=== PATIENT | male | born 1970 | race Caucasian/White ===

== ENCOUNTER → 2019-04-23 09:57 | Outpatient (CLI) | payer MEDICAID, SELFPAY ==
--- NOTE | 2019-04-23 13:08 | NEURO ---
NCS and/or EMG Patient Report Ordering Doctor: Arnulfo Pelaez DATE OF SERVICE: 04/23/19 Saran eWlch is a 49 year old male who presents with pain, weakness and numbness in the left hand. Electrodiagnostic findings: Left median motor nerve demonstrates normal distal latency, amplitude and conduction velocity. Normal left ulnar motor response. Normal median and ulnar F-wave. Prolonged left median sensory latency at the wrist. Prolonged left median palmar latency. On needle EMG, all muscles tested in the left upper limb showed no evidence of denervation with normal motor unit action potentials. No denervation noted in the left cervical paraspinals. Electrodiagnostic impression: This is an abnormal study in the left upper limb. 1. Elective diagnostic findings demonstrate left-sided median mononeuropathy. This is consistent with a mild left carpal tunnel syndrome. 2. No electrodiagnostic evidence is noted for cervical radiculopathy. If there are any further questions, please do not hesitate to contact me
== END ==
DX: G56.02 Carpal tunnel syndrome, left upper limb (principal)
CPT/HCPCS: 95886; 95910

== ENCOUNTER → 2019-05-22 13:14 | Outpatient (CLI) | payer MEDICAID, SELFPAY ==
[2019-05-22 13:02] VITALS: BMI 31.0
--- NOTE | 2019-05-22 13:14 | RAD_ITS ---
STUDY: X-RAY - LEFT WRIST REASON FOR EXAM: Woke up with severe wrist pain. TECHNIQUE: 3 view(s) of the wrist were obtained. COMPARISON: None. FINDINGS: Normal visualized distal radius and ulna. Normal radiocarpal articulation. Normal distal radioulnar articulation. Normal carpal bones. Normal carpal articulations. There is moderate joint space narrowing of the carpometacarpal articulation of the thumb. Normal second through fifth carpometacarpal articulations. Normal visualized metacarpal bones. The soft tissue structures are unremarkable. RAD/Wrist min 3 Views IMPRESSION: Arthrosis of the first carpometacarpal joint. Electronically Signed: Jason Ruiz MD at 13:40 EST Tel , Service support ,
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
== END ==
PROVIDERS: Referring Provider Orthopaedic Surgery; Visit Provider Orthopaedic Surgery
DX: M79.602 Pain in left arm (principal); M54.2 Cervicalgia; G56.02 Carpal tunnel syndrome, left upper limb
CPT/HCPCS: 72050; 73110

== ENCOUNTER → 2020-12-07 14:32 | Outpatient (CLI) | payer MEDICAID, SELFPAY ==
[2020-12-07 13:57] VITALS: BMI 31.0
[2020-12-07 15:48] LABS: Absolute Lymphocyte Count 2.32 X10^3/uL (0.83-4.51); Basophil# 0.14 X10^3/uL; Basophil% 1.2 % (0-1); Eosinophils% 0.9 % (0-5); Hematocrit 49.1 % (40-54); Hemoglobin 16.4 g/dL (13.0-16.5); Lymphocyte # 2.32 X10^3/ul (0.83-4.51); Lymphocyte % 20.5 % (19-41); Mean Corp Hgb Conc 33.4 g/dL (32-36); Mean Corpuscular Hgb 31.1 pg (27.0-32.0); Mean Platelet Vol. 9.9 fl (6.2-12.0); Monocyte# 0.77 X10^3/uL; Monocyte% 6.8 % (0-10); NRBC Flagged by Analyzer 0 % (0-5); Neutrophil # 7.96 X10^3/uL (2.7-7.7); Neutrophil % 70.3 % (47-70); Platelet Count 363 K/mm3 (150-450); RBC Distribution Width CV 13.1 % (11.6-14.6); Red Blood Count 5.28 M/mm3 (4.6-6.2); White Blood Count 11.3 K/mm3 (4.4-11.0)
[2020-12-07 16:39] LABS: ALB/GLOB Ratio 0.9 RATIO (0.9-2.4); AST(SGOT) 25 U/L (15-37); Alanine Aminotransfer ALT/SGPT 27 U/L (16-61); Alkaline Phosphatase 85 U/L (45-117); Anion Gap 6 (5-15); BUN 7 mg/dL (7-18); BUN/Creat Ratio 8.9 RATIO (10-20); Calcium,Total 9.3 mg/dL (8.5-10.1); Chloride 104 mmol/L (98-107); Creatinine, Serum 0.78 mg/dL (0.70-1.30); EST Glomerular Filtration Rate 110 mL/min (>60); Est Glom Filt Rate - Afr Amer 134 mL/min (>60); Globulin 4.3 g/dL (2.2-4.2); Glucose 87 mg/dL (74-106); Potassium 3.7 mmol/L (3.5-5.1); Protein, Total 8.3 g/dL (6.4-8.2); Sodium Level 136 mmol/L (136-145); Thyroid Stim Hormone (TSH) 1.78 uIU/mL (0.358-3.74)
[2020-12-09 12:15] LABS: Vitamin D,25 Hydroxy 12.3 ng/mL
== END ==
PROVIDERS: PCP Family Medicine; Referring Provider Family Medicine; Visit Provider Family Medicine
DX: G25.2 Other specified forms of tremor (principal)
CPT/HCPCS: 36415; 80053; 82306; 84443; 85025

== ENCOUNTER 2021-04-11 06:39 | Day surgery (SDC) | payer MEDICAID, SELFPAY ==
--- NOTE | 2021-04-11 | COLBX_PTH ---
PATIENT: TIMMY HARRISON LOC: EN U#:[id number] AGE/SX: 51/M ROOM: RE04/11/[address]: Dr. Glynn Young DO : 1970 BED: DIS: 04/11/2021 SPEC #: [id number] RECD: 04/11/21 12:10 STATUS: SAMEER JAVED #: [id number] CARLOS: 04/11/21 00:[address]: Glynn Young DEPT: SURGICAL PATHOLOGY RECD BY: Bradley Montanez ENTERED: 04/11/21 12:10 SP TYPE: COLON BX GIANFRANCO DR: Dr. Henry Blanton DO Tissues: A - Ileum, NOS B - COLON BIOPSY Procedures: Surgery Specimen Level IV HEADER OPERATION: Colonoscopy (MAC) PRE-OP DIAGNOSIS: Irritable bowel syndrome TISSUE SUBMITTED: A ? Terminal ileum biopsy, B ? Random colonic biopsy MICROSCOPIC DIAGNOSIS A. Terminal ileum, biopsy: No pathologic change. B. Colon, random biopsy: No pathologic change. AM:fany 04/12/2021 MICROSCOPIC DESCRIPTION Slides are reviewed. GROSS DESCRIPTION A - Received in fixative is one container labeled with the patient's name and designated terminal ileum biopsy. The specimen consists of multiple irregular fragments of light estrada soft tissue that in aggregate measure 1 x 0.4 x 0.1 cm. The specimen is totally submitted in one cassette. B - Received in fixative is one container labeled with the patient's name and designated random colonic biopsy. The specimen consists of multiple irregular fragments of light estrada soft tissue that in aggregate measure 2.5 x 1 x 0.1 cm. The specimen is totally submitted in one cassette. / SJ:fany 04/11/21 TC:5 CPT: 91763 x2
[2021-04-11 07:08] VITALS: BP 125/74; PULSE 88; RESP 18; TEMP 37; O2SAT 95; BMI 29.6
[2021-04-11] MEDS: Lactated Ringers 1,000 ML 100 ML IV (07:24)
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
[2021-04-11 08:20] VITALS: BP 125/74; BP 97/63; PULSE 75; RESP 16; TEMP 36.3; O2SAT 93
--- NOTE | 2021-04-11 08:24 | OP.COLON_ITS ---
Patient Name: Saran Welch Procedure Date: 04/11/2021 7:59 AM Date of : 1970 Age: 51 Procedure: Colonoscopy Indications: Crohn's disease of the colon Providers: Glynn Young DO Referring MD: Glynn Young DO Medicines: Monitored Anesthesia Care Patient Profile: This is a 51 year old male. Refer to note in patient chart for documentation of history and physical. Last Colonoscopy: 5 years ago. Complications: No immediate complications. Procedure: Pre-Anesthesia Assessment: - Prior to the procedure, a History and Physical was performed, and patient medications and allergies were reviewed. The patient is competent. The risks and benefits of the procedure and the sedation options and risks were discussed with the patient. All questions were answered and informed consent was obtained. Patient identification and proposed procedure were verified by the physician in the pre-procedure area. Mental Status Examination: alert and oriented. Airway Examination: normal oropharyngeal airway and neck mobility. Respiratory Examination: clear to auscultation. CV Examination: normal. Prophylactic Antibiotics: The patient does not require prophylactic antibiotics. Prior Anticoagulants: The patient has taken no previous anticoagulant or antiplatelet agents. ASA Grade Assessment: II - A patient with mild systemic disease. After reviewing the risks and benefits, the patient was deemed in satisfactory condition to undergo the procedure. The anesthesia plan was to use moderate sedation / analgesia (conscious sedation). Immediately prior to administration of medications, the patient was re-assessed for adequacy to receive sedatives. The heart rate, respiratory rate, oxygen saturations, blood pressure, adequacy of pulmonary ventilation, and response to care were monitored throughout the procedure. The physical status of the patient was re-assessed after the procedure. After I obtained informed consent, the scope was passed under direct vision. Throughout the procedure, the patient's blood pressure, pulse, and oxygen saturations were monitored continuously. The pediatric colonoscope was introduced through the anus and advanced to the terminal ileum. The colonoscopy was performed without difficulty. The patient tolerated the procedure well. The quality of the bowel preparation was good. Moderate Sedation: Moderate (conscious) sedation was administered by the endoscopy nurse and supervised by the endoscopist. The following parameters were monitored: oxygen saturation, heart rate, blood pressure, and response to care. Scope In: 8:06:36 AM Scope Withdrawal Time 0 hours 9 minutes 29 seconds Scope Out: 8:18:02 AM Total Procedure Duration Time 0 hours 11 minutes 26 seconds Findings: The perianal and digital rectal examinations were normal. Patchy mild inflammation characterized by erythema was found in the sigmoid colon. Biopsies were taken with a cold forceps for histology. Verification of patient identification for the specimen was done. Estimated blood loss was minimal. The terminal ileum appeared normal. Biopsies were taken with a cold forceps for histology. Estimated blood loss: none. Impression: - Patchy mild inflammation was found in the sigmoid colon secondary to colitis. Biopsied. - The examined portion of the ileum was normal. Biopsied. - Patchy mild inflammation was found in the proximal sigmoid colon secondary to colitis. Biopsied. - The examined portion of the ileum was normal. Biopsied. Recommendation: - Discharge patient to home. - Resume previous diet. - Continue present medications. - Await pathology results. - Repeat colonoscopy in 3 years for surveillance. - Return to GI office in 2 weeks. Procedure Code(s): --- Professional --- 76467, Colonoscopy, flexible; with biopsy, single or multiple CPT copyright 2017 [employer]. All rights reserved. The codes documented in this report are preliminary and upon assistant oceanographer review may be revised to meet current compliance requirements. Glynn Young DO 04/11/2021 8:24:00 AM This report has been signed electronically. Number of Addenda: 1 Note Initiated On: 04/11/2021 7:59 AM Addendum Number: 1 Addendum Date: 03/16/2022 4:04:38 PM MAC was used instead of moderate sedation for this patient. Glynn Young DO 03/16/2022 4:04:44 PM This report has been signed electronically.
[2021-04-11 08:25] VITALS: BP 105/67; BP 125/74; PULSE 75; RESP 16; O2SAT 95
--- NOTE | 2021-04-11 08:25 | OP.CCLET_ITS ---
03/16/2022 Henry Blanton Re : Colonoscopy procedure for Saran Welch Dear Dr. Blanton This procedure was performed on Sunday, April 11, 2021. My impressions and recommendations are as follows: Impressions : - Patchy mild inflammation was found in the sigmoid colon secondary to colitis. Biopsied. - The examined portion of the ileum was normal. Biopsied. - Patchy mild inflammation was found in the proximal sigmoid colon secondary to colitis. Biopsied. - The examined portion of the ileum was normal. Biopsied. Recommendations : - Discharge patient to home. - Resume previous diet. - Continue present medications. - Await pathology results. - Repeat colonoscopy in 3 years for surveillance. - Return to GI office in 2 weeks. My findings are described in the full procedure note, which is enclosed. If I can be of further assistance, please feel free to contact me at . Sincerely, Glynn Young, DO 04/11/2021 8:24:00 AM This report has been signed electronically.
[2021-04-11 08:30] VITALS: BP 109/65; BP 125/74; PULSE 72; RESP 16; O2SAT 95
[2021-04-11 08:35] VITALS: BP 119/79; BP 125/74; PULSE 81; RESP 16; TEMP 37.2; O2SAT 98
[2021-04-11 09:00] VITALS: BP 125/74
== END 2021-04-11 09:01 ==
LOC: EN 06:40 → AC 06:40
PROVIDERS: PCP Family Medicine; Referring Provider Internal Medicine Gastroenterology; Visit Provider Internal Medicine Gastroenterology
PROC: 0DJD8ZZ Inspection of Lower Intestinal Tract, Via Natural or Artificial Opening Endoscopic (ICD-10-PCS; CPT 45378; principal; 2021-04-11 07:55)
DX: K50.10 Crohn's disease of large intestine without complications (principal); K21.9 Gastro-esophageal reflux disease without esophagitis; R13.10 Dysphagia, unspecified; Z20.822 Contact with and (suspected) exposure to COVID-19; M54.2 Cervicalgia; G89.29 Other chronic pain; F17.210 Nicotine dependence, cigarettes, uncomplicated
CPT/HCPCS: 45380; 87426; 88305; C9803; J7120; J2405

== ENCOUNTER → 2021-06-06 08:59 | Outpatient (CLI) | payer MEDICAID, SELFPAY ==
[2021-06-09 00:07] LABS: Beef <0.10 kU/L (Class 0); Clam <0.10 kU/L (Class 0); Codfish <0.10 kU/L (Class 0); Corn <0.10 kU/L (Class 0); Egg, White <0.10 kU/L (Class 0); Egg, Whole <0.10 kU/L (Class 0); Milk (Cow) <0.10 kU/L (Class 0); Peanut <0.10 kU/L (Class 0); Pork <0.10 kU/L (Class 0); SCALLOP <0.10 kU/L (Class 0); SESAME SEED <0.10 kU/L (Class 0); Shrimp <0.10 kU/L (Class 0); Soybean <0.10 kU/L (Class 0); Walnut, (Food) <0.10 kU/L (Class 0); Wheat <0.10 kU/L (Class 0)
[2021-06-09 08:41] LABS: Chocolate <0.10 kU/L (Class 0)
== END ==
PROVIDERS: PCP Family Medicine; Referring Provider Internal Medicine Gastroenterology; Visit Provider Internal Medicine Gastroenterology
DX: K58.0 Irritable bowel syndrome with diarrhea (principal)
CPT/HCPCS: 36415; 86003; 86005

== ENCOUNTER → 2021-06-11 07:11 | Outpatient (CLI) | payer MEDICAID, SELFPAY ==
--- NOTE | 2021-06-11 07:11 | MRI_ITS ---
STUDY: MRI CERVICAL SPINE WITHOUT CONTRAST REASON FOR EXAM: Male, 51 years old. neck pain, spondylosis, ankylosing vertebral hyperostosis TECHNIQUE: Standardized fat and water weighted pulse sequences were obtained in the sagittal and axial planes. COMPARISON: 03/07/2021 FINDINGS: Normal foramen magnum and brainstem-cervical cord junction. Normal craniovertebral junction. Normal anterior atlantoaxial articulation. Normal odontoid process. Normal cervical lordosis. Normal vertebral bodies and posterior osseous elements. C2-3, C3-4, C4-5, C5-6: Endplate spondylosis. Central and paracentral disc bulge. Degenerative changes of the bilateral facet joints and uncovertebral joints. Mild narrowing of the central canal and the bilateral intervertebral neural foramina. C7-T1: Endplate spondylosis. Left paracentral disc herniation impinging on the left C8 nerve root. Degenerative changes of the bilateral facet joints and uncovertebral joints. Moderate narrowing of the central canal. Mild right and severe left intervertebral neural foraminal narrowing. Normal cervical cord. Normal visualized soft tissue structures. MRI/Spine Cervical (Routine) IMPRESSION: Multilevel degenerative changes, as described above. Left paracentral disc herniation at C7-T1 impinging on the left C8 nerve root. Electronically Signed: Jared Rodríguez MD at 7:46 EST Tel , Service support ,
== END ==
PROVIDERS: PCP Family Medicine; Referring Provider Orthopaedic Surgery; Visit Provider Orthopaedic Surgery
DX: M41.52 Other secondary scoliosis, cervical region (principal); M47.812 Spondylosis without myelopathy or radiculopathy, cervical region; M48.10 Ankylosing hyperostosis [Forestier], site unspecified
CPT/HCPCS: 72141

== ENCOUNTER → 2021-07-12 08:41 | Outpatient (CLI) | payer MEDICAID, SELFPAY ==
[2021-07-12 09:42] LABS: Absolute Lymphocyte Count 1.96 X10^3/uL (0.83-4.51); Absolute Neutrophil Count 10.8 X10^3/uL (2.0-7.7); Basophil# 0.07 X10^3/uL; Basophil% 0.5 % (0-1); Eosinophil# 0.11 X10^3/uL; Eosinophils% 0.8 % (0-5); Hematocrit 47.6 % (40-54); Lymphocyte # 1.96 X10^3/ul (0.83-4.51); Lymphocyte % 13.9 % (19-41); Mean Corp Hgb Conc 33.6 g/dL (32-36); Mean Corpuscular Hgb 31.8 pg (27.0-32.0); Mean Corpuscular Volume 94.6 fL (80-94); Mean Platelet Vol. 9.6 fl (6.2-12.0); Monocyte# 1.05 X10^3/uL; Monocyte% 7.5 % (0-10); NRBC Flagged by Analyzer 0 % (0-5); Neutrophil # 10.81 X10^3/uL (2.7-7.7); Neutrophil % 76.7 % (47-70); Platelet Count 301 K/mm3 (150-450); RBC Distribution Width CV 14.3 % (11.6-14.6); RBC Distribution Width SD 49.1 fl (35.1-43.9); Red Blood Count 5.03 M/mm3 (4.6-6.2); White Blood Count 14.1 K/mm3 (4.4-11.0)
[2021-07-12 09:52] LABS: Erythrocyte Sedimentation Rate 6 mm/hr (0-20)
[2021-07-12 10:37] LABS: ALB/GLOB Ratio 1.1 RATIO (0.9-2.4); AST(SGOT) 18 U/L (15-37); Alanine Aminotransfer ALT/SGPT 36 U/L (16-61); Alkaline Phosphatase 65 U/L (45-117); Anion Gap 5 (5-15); BUN 13 mg/dL (7-18); BUN/Creat Ratio 16.4 RATIO (10-20); CRP < 2.90 mg/L (0.0-3.0); Calcium,Total 9.1 mg/dL (8.5-10.1); Chloride 106 mmol/L (98-107); Creatinine, Serum 0.79 mg/dL (0.70-1.30); EST Glomerular Filtration Rate 109 mL/min (>60); Est Glom Filt Rate - Afr Amer 131 mL/min (>60); Globulin 3.8 g/dL (2.2-4.2); Glucose 93 mg/dL (74-106); Potassium 3.7 mmol/L (3.5-5.1); Protein, Total 7.8 g/dL (6.4-8.2); Sodium Level 137 mmol/L (136-145)
== END ==
PROVIDERS: PCP Family Medicine; Referring Provider Nurse Practitioner Adult Health; Visit Provider Nurse Practitioner Adult Health
DX: K58.0 Irritable bowel syndrome with diarrhea (principal)
CPT/HCPCS: 36415; 80053; 85025; 85652; 86140

== ENCOUNTER 2021-07-22 10:16 | Outpatient (CLI) | payer MEDICAID, SELFPAY ==
[2021-07-22 12:42] LABS: Absolute Lymphocyte Count 3.38 X10^3/uL (0.83-4.51); Absolute Neutrophil Count 6.5 X10^3/uL (2.0-7.7); Basophil% 0.9 % (0-1); Eosinophil# 0.26 X10^3/uL; Eosinophils% 2.3 % (0-5); Hematocrit 47.3 % (40-54); Hemoglobin 15.9 g/dL (13.0-16.5); Lymphocyte # 3.38 X10^3/ul (0.83-4.51); Lymphocyte % 30.4 % (19-41); Mean Corp Hgb Conc 33.6 g/dL (32-36); Mean Corpuscular Hgb 31.8 pg (27.0-32.0); Mean Corpuscular Volume 94.6 fL (80-94); Mean Platelet Vol. 9.9 fl (6.2-12.0); Monocyte# 0.79 X10^3/uL; Monocyte% 7.1 % (0-10); NRBC Flagged by Analyzer 0 % (0-5); Neutrophil % 58.4 % (47-70); Platelet Count 298 K/mm3 (150-450); RBC Distribution Width CV 14.3 % (11.6-14.6); RBC Distribution Width SD 49.7 fl (35.1-43.9); White Blood Count 11.1 K/mm3 (4.4-11.0)
== END 2021-07-22 23:59 | disposition short-term general hospital (02) ==
LOC: BIMLAB 10:17
PROVIDERS: PCP Family Medicine; Referring Provider Family Medicine; Visit Provider Family Medicine
DX: D72.9 Disorder of white blood cells, unspecified (principal)
CPT/HCPCS: 36415; 85025

== ENCOUNTER 2021-09-15 08:08 | Outpatient (CLI) | payer MEDICAID, SELFPAY | END 2021-09-15 23:59 | disposition home or self-care (01) | LOC: BIMLAB 08:09 | PROVIDERS: PCP Family Medicine; Referring Provider Family Medicine; Visit Provider Family Medicine | DX: M23.52 Chronic instability of knee, left knee (principal); R61 Generalized hyperhidrosis | CPT/HCPCS: 36415; 84403 ==

== ENCOUNTER 2021-10-12 16:06 | Outpatient (CLI) | payer MEDICAID, SELFPAY ==
--- NOTE | 2021-10-12 16:06 | MRI_ITS ---
STUDY: MRI LEFT SHOULDER REASON FOR EXAM: Male, 51 years old. left shoulder pain, painful w/ movement left shoulder pain, painful w/ movement TECHNIQUE: Standardized fat and water weighted pulse sequences were obtained in all 3 orthogonal planes. COMPARISON: None. FINDINGS: Normal supraspinatus tendon. Normal infraspinatus tendon. Normal subscapularis tendon. Normal teres minor tendon. Normal supraspinatus muscle. Normal infraspinatus muscle. Normal subscapularis muscle. Normal teres minor muscle. Normal glenohumeral articulation. Normal humeral head and visualized proximal humerus. Normal biceps labral complex. Normal intracapsular long biceps tendon. Normal labrum. Normal capsulo- ligamentous complex. Normal rotator interval. There is mild osteoarthritis of the acromioclavicular articulation. Normal visualized coracohumeral and coracoacromial ligaments. Normal quadrilateral space. Normal axillary space. Normal deltoid muscle. Normal trapezius muscle. MRI/Upper Ext Joint Only(Routine) IMPRESSION: There is mild osteoarthritis of the acromioclavicular articulation. Electronically Signed: Mak Mccollum MD at 18:41 EDT Reading Location ID and State: [facility] / [place] , Service support ,
--- NOTE | 2021-10-12 16:06 | MRI_ITS ---
STUDY: MRI RIGHT SHOULDER REASON FOR EXAM: Male, 51 years old. right shoulder painful with movement right shoulder painful with movement TECHNIQUE: Standardized fat and water weighted pulse sequences were obtained in all 3 orthogonal planes. RIGHT COMPARISON: None. FINDINGS: Normal supraspinatus tendon. Normal infraspinatus tendon. Normal subscapularis tendon. Normal teres minor tendon. Normal supraspinatus muscle. Normal infraspinatus muscle. Normal subscapularis muscle. Normal teres minor muscle. Normal glenohumeral articulation. Normal humeral head and visualized proximal humerus. Normal biceps labral complex. Normal intracapsular long biceps tendon. Normal labrum. Normal capsulo- ligamentous complex. Normal rotator interval. There is mild osteoarthritis of the acromioclavicular articulation. There is minimal fluid distention of the subacromial bursa, consistent with mild subacromial-subdeltoid bursitis. Normal visualized coracohumeral and coracoacromial ligaments. Normal quadrilateral space. Normal axillary space. Normal deltoid muscle. Normal trapezius muscle. MRI/Upper Ext Joint Only(Routine) IMPRESSION: There is mild osteoarthritis of the acromioclavicular articulation. There is minimal fluid distention of the subacromial bursa, consistent with mild subacromial-subdeltoid bursitis. Electronically Signed: Mak Mccollum MD at 19:32 EDT ,
== END 2021-10-12 23:59 | disposition home or self-care (01) ==
LOC: MRI 16:06
PROVIDERS: PCP Family Medicine; Visit Provider Orthopaedic Surgery
DX: M40.00 Postural kyphosis, site unspecified (principal); M75.21 Bicipital tendinitis, right shoulder; M75.22 Bicipital tendinitis, left shoulder; M75.41 Impingement syndrome of right shoulder; M75.42 Impingement syndrome of left shoulder; M25.511 Pain in right shoulder; M25.512 Pain in left shoulder
CPT/HCPCS: 73221

== ENCOUNTER 2021-10-20 07:00 | Outpatient (CLI) | payer MEDICAID, SELFPAY ==
--- NOTE | 2021-10-20 07:00 | MRI_ITS ---
STUDY: MRI RIGHT KNEE REASON FOR EXAM: Chronic lateral and posterior right knee pain. TECHNIQUE: Standardized fat and water weighted pulse sequences were obtained in all 3 orthogonal planes. COMPARISON: Radiographs 09/21/2021. FINDINGS: There is a small horizontal tear of the inferior articular surface of the posterior horn of the medial meniscus near the free margin (proton-density sagittal images 34, 35). There is arthrosis of the medial femorotibial compartment with partial-thickness chondral loss of the medial femoral condyle (T2 sagittal image 19). Normal medial femoral condyle and tibial plateau. Normal medial collateral ligamentous complex (MCL). Normal distal semimembranosus, gracilis and semitendinosus tendons. There is a tear of the superior articular surface of the body of the lateral meniscus (proton-density coronal images 15, 16). Normal hyaline cartilage of the lateral femorotibial compartment. Normal lateral femoral condyle and tibial plateau. Normal proximal tibiofibular articulation. Normal lateral collateral (fibular) ligament. Normal popliteus tendon. Normal biceps femoris tendon. Normal anterior cruciate ligament (ACL). Normal posterior cruciate ligament (PCL). Normal congruent patellofemoral articulation. Normal hyaline cartilage of the patellofemoral compartment. Normal medial and lateral patellar retinaculum. Normal visualized quadriceps tendon. Normal patellar tendon. Normal Hoffa''s fat pad. There is a very small joint effusion. The soft tissues are unremarkable. The otherwise visualized osseous structures are unremarkable. MRI/Lower Ext Joint Only (Routine) IMPRESSION: Lateral meniscal tear. Small medial meniscal tear. Arthrosis of the medial femorotibial compartment. Very small joint effusion. Electronically Signed: Jason Ruiz MD at 10:27 EDT ,
--- NOTE | 2021-10-20 07:00 | MRI_ITS ---
STUDY: MRI LEFT KNEE REASON FOR EXAM: Chronic left knee pain, instability, arthroscopic surgery in 1988. TECHNIQUE: Standardized fat and water weighted pulse sequences were obtained in all 3 orthogonal planes. COMPARISON: Radiographs 09/21/2021. FINDINGS: There is a partial medial meniscectomy. There is intrasubstance myxoid degeneration of the body of the medial meniscus without discrete recurrent medial meniscal tear. There is arthrosis of the medial femorotibial compartment with partial-thickness chondral loss of the medial femoral condyle (T2 sagittal image 8). Normal medial femoral condyle and tibial plateau. Normal medial collateral ligamentous complex (MCL). Normal distal semimembranosus, gracilis and semitendinosus tendons. Normal lateral meniscus. Normal hyaline cartilage of the lateral femorotibial compartment. Normal lateral femoral condyle and tibial plateau. Normal proximal tibiofibular articulation. Normal lateral collateral (fibular) ligament. Normal popliteus tendon. Normal biceps femoris tendon. Normal anterior cruciate ligament (ACL). Normal posterior cruciate ligament (PCL). Normal congruent patellofemoral articulation. Normal hyaline cartilage of the patellofemoral compartment. Normal medial and lateral patellar retinaculum. Normal visualized quadriceps tendon. Normal patellar tendon. Normal Hoffa''s fat pad. There is a minimal volume of fluid in the knee joint. There is a very small popliteal cyst (T2 sagittal images 6, 7). There is a small ganglion cyst adjacent to the distal posterior cruciate ligament (T2 sagittal image 11, 12) measuring 0.9 cm in length. The otherwise visualized osseous structures are unremarkable. MRI/Lower Ext Joint Only (Routine) IMPRESSION: Partial medial meniscectomy without demonstrated recurrent meniscal tear. Arthrosis of the medial femorotibial compartment. Very small popliteal cyst. Small posterior ganglion cyst. Electronically Signed: Jason Ruiz MD at 10:26 EDT ,
== END 2021-10-20 23:59 | disposition home or self-care (01) ==
LOC: MRI 07:00
PROVIDERS: PCP Family Medicine; Visit Provider Orthopaedic Surgery
DX: M25.562 Pain in left knee (principal); M17.12 Unilateral primary osteoarthritis, left knee
CPT/HCPCS: 73721

== ENCOUNTER 2021-10-26 13:06 | Outpatient (CLI) | payer MEDICAID, SELFPAY ==
--- NOTE | 2021-10-26 13:10 | MRI_ITS ---
STUDY: MRI LUMBAR SPINE WITHOUT CONTRAST REASON FOR EXAM: Male, 51 years old. Back pain TECHNIQUE: Standardized fat and water weighted pulse sequences were obtained in the sagittal and axial planes. COMPARISON: None FINDINGS: lumbar spine is intact and aligned. Marrow, paraspinous soft tissues and SI joints are unremarkable. There are multilevel degenerative changes in the endplates and discs. Conus terminates at T12-L1. Thecal sac is mildly stenotic at L2-L3 and L3-L4 with partial effacement of CSF without nerve root crowding. Lateral recesses are patent. Foramina are moderately stenotic bilaterally at L3-L4, moderate to severe at L4-L5, moderate at L5-S1. MRI/Spine Lumbar (Routine) IMPRESSION: 1. Bilateral lower lumbar multilevel foraminal stenosis. 2. No moderate/high-grade thecal sac compression. Electronically Signed: Derick Bernal MD at 9:19 EDT ,
== END 2021-10-26 23:59 | disposition home or self-care (01) ==
LOC: MRI 13:09
PROVIDERS: PCP Family Medicine; Visit Provider Orthopaedic Surgery
DX: M54.16 Radiculopathy, lumbar region (principal)
CPT/HCPCS: 72148

== ENCOUNTER 2021-11-01 11:53 | Outpatient (CLI) | payer MEDICAID, SELFPAY ==
[2021-11-01 15:36] LABS: T4 Free Direct 0.98 ng/dL (0.76-1.46); Thyroid Stim Hormone (TSH) 1.29 uIU/mL (0.358-3.74)
[2021-11-01 16:01] LABS: HIV - WCH Non-Reactive (Nonreactive)
== END 2021-11-01 23:59 | disposition home or self-care (01) ==
LOC: BIMLAB 11:54
PROVIDERS: PCP Family Medicine; Referring Provider Family Medicine; Visit Provider Family Medicine
DX: R61 Generalized hyperhidrosis (principal)
CPT/HCPCS: 36415; 84439; 84443; 86703

== ENCOUNTER → 2021-11-09 | Outpatient (CLI) | payer MEDICAID, SELFPAY ==
--- NOTE | 2021-11-09 13:44 | ART_ITS ---
Reason For Study: Decreased Pulses Procedure A bilateral lower extremity continuous wave Doppler with analog waveform analysis and ankle brachial indexes. Left Segmental Pressures Left brachial= 116mmHg. Left posterior tibial artery = 142mmHg. Left dorsalis pedis artery = 139mmHg. Right Segmental Pressures Right brachial= 115mmHg. Right posterior tibial artery = 147mmHg. Right dorsalis pedis artery = 136mmHg. Indices The right ankle brachial index by the posterior tibial artery is 1.27. The right ankle brachial index by the dorsalis pedis is 1.17. The left ankle brachial index by the posterior tibial artery is 1.22. The left ankle brachial index by the dorsalis pedis is 1.20. VL/Ankle Brachial Index Interpretation Summary Normal right posterior tibial and dorsalis pedis ankle-brachial indices of 1.27 and 1.17 respectively with triphasic Doppler waveforms. Normal left lower extremity PT and DP ankle-brachial indices of 1.22 and 1.2 re spectively with triphasic Doppler waveforms Ordering Physician: Cody Mills Referring Physician: Cody Mills Performed By: Sulema Mayberry RDCS/RVT
== END | disposition home or self-care (01) ==
LOC: CVS 13:43
PROVIDERS: PCP Family Medicine; Referring Provider Orthopaedic Surgery; Visit Provider Orthopaedic Surgery
DX: I73.9 Peripheral vascular disease, unspecified (principal)
CPT/HCPCS: 93922

== ENCOUNTER 2021-11-29 05:54 | Day surgery (SDC) | payer MEDICAID, SELFPAY ==
--- NOTE | 2021-11-28 07:02 | EKG12_ITS ---
Test Reason : PRE OP Blood Pressure : / mmHG Vent. Rate : 065 BPM Atrial Rate : 065 BPM P-R Int : 130 ms QRS Dur : 076 ms QT Int : 384 ms P-R-T Axes : 056 035 045 degrees QTc Int : 399 ms Normal sinus rhythm Normal ECG Confirmed by CUCO JAIMES, FARRAH ([id number]), social media editor CHELA DOTY ([id number]) on 11/28/2021 1:32:16 PM Referred By: Cody Mills Confirmed By:FARRAH NORWOOD MD
[2021-11-28 08:14] LABS: Hematocrit 46.9 % (40-54); Hemoglobin 15.4 g/dL (13.0-16.5); Mean Corp Hgb Conc 32.8 g/dL (32-36); Mean Corpuscular Hgb 30.7 pg (27.0-32.0); Mean Corpuscular Volume 93.4 fL (80-94); Mean Platelet Vol. 9.6 fl (6.2-12.0); Platelet Count 314 K/mm3 (150-450); RBC Distribution Width CV 12.8 % (11.6-14.6); RBC Distribution Width SD 44.2 fl (35.1-43.9); Red Blood Count 5.02 M/mm3 (4.6-6.2); White Blood Count 8.1 K/mm3 (4.4-11.0)
[2021-11-29] MEDS: Lactated Ringers 1,000 ML 15 ML IV ×2 (06:15→09:46)
[2021-11-29 06:34] VITALS: BP 93/51; PULSE 70; RESP 16; TEMP 37.2; O2SAT 95; BMI 26.9
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
[2021-11-29] MEDS: Cefazolin 2 GM in 0.9% Normal Saline 100 ML IV (07:36)
[2021-11-29] MEDS: Lidocaine 1% /Epi 1:100 (20ml) 20 ML Vial (08:17)
[2021-11-29] MEDS: MethylPREDNISolone Acetate 40 MG/ML Vial IM (08:27)
[2021-11-29] MEDS: Epinephrine (1 mg/ml) 1 MG/ML VIAL (08:27)
[2021-11-29] MEDS: Bupivacaine Mpf 0.5% 30 ML VIAL (08:28)
--- NOTE | 2021-11-29 08:28 | OP.PCM_ITS ---
Report of Operation Date of Procedure: 11/29/21 Description of Surgical Findings:: Preoperative diagnosis: Right shoulder AC joint arthritis, impingement, biceps tendonopathy Postoperative diagnosis: Right shoulder impingement , biceps tendinopathy Procedure: Arthroscopic right shoulder subacromial decompression/ acromioplasty and biceps tenotomy Anesthesia: General with interscalane block; EBL: 10 cc Complications: none Indication for procedure: 51-year-old male patient with chronic right anterior s houlder pain who has failed conservative treatment who has had MRI evidence of AC joint arthritis with subdeltoid bursitis and clinically chronic biceps tendinitis patient did wish to proceed with an arthroscopic subacromial decompression biceps tenotomy and surgery as indicated. risks benefits and alternatives of the procedure were reviewed including risk of bleeding infection nerve artery tissue damage need for further surgery continued pain postoperative stiffness and need for postoperative physical therapy and continued pain. Procedure : Patient was met in the preoperative holding area the operative extremity was identified by both the patient and the physician and was marked. Patient was met by anesthesia and brought back to the operating room on a wheeled cart. he was transferred to the operating table in the supine position. Anesthesia was started. Patient was then positioned in the beachchair configuration. Bony prominences were well-padded. The patient was prepped and draped in the usual sterile fashion. A timeout was called to ensure the proper patient procedure and extremity were being contemplated. Anatomic landmarks were palpated and marked with a marking pen. A 0.25% Marcaine with epinephrine was injected into the planned portal sites. An 11 blade scalpel was used to make a stab incision in the posterior lateral portal. Arthroscope was inserted into the glenohumeral space with ease. Inflow and outflow tubes were attached and arthroscopic visualization began. An anterior portal was established with an 18-gauge spinal needle. He was noted to have a thickened medial glenohumeral ligament there was some adhesion of the biceps labral complex to the undersurface of the rotator cuff there was some synovitis of the biceps tendon I did perform a evaluation of the rotator cuff there is no issues with the subscapularis or the remainder of the supraspinatus infraspinatus there is no loose bodies in the axillary pouch biceps tenotomy was performed with ArthroCare wand the arthroscope was then repositioned into the subacromial space there was noted to be anterior acromial spurring and a hypertrophied acromioclavicular joint impinging on the rotator cuff with the use of a bur the undersurface of the acromion and the distal clavicle were removed the remainder of the bursal surface of the rotator cuff was evaluated and was free of pathology bursa was excised to allow for this visualization the wound was thoroughly irrigated through the scope followed by a subacromial injection with 40 mg Depo-Medrol 4 mg of morphine and 8 cc of 0.5% Marcaine plain. Suture portals were closed with 3-0 nylon arthroscopic stitches followed by Xeroform 4 x 4 ABD and a Ioban dressing. A regular sling was placed. Anesthesia was reversed and patient tolerated the procedure well was and was transferred to the PACU all counts were correct patient will follow-up in the office in 2 weeks patient may begin active range of motion immediately
--- NOTE | 2021-11-29 08:32 | EX.PCM.DISCH ---
Discharge Instructions Activity Additional Activity Instructions:: Leave the dressing on and intact for 48 hours. Then may remove and shower with warm water and antibacterial soap. But do not submerge in tub for 3 weeks. ice shoulder 15 min on and 15 mins off next 72 hrs. May remove sling for elbow range of motion and pendulum exercises may preform active range of motion of shoulder when pain allows. discontinue sling over the course to the week as pain allow. DC completely by 1 week. Do not lift push or pull greater then 5 lbs with operative extremity. Encourage finger and wrist range of motion. If any concerns call Dr. Mills's office. Dressing / Incision Call your doctor if you observe: Shortness of breath and Chest pain Follow Up Care Please Follow Up With: Cody Mills DO When: 2 weeks Test Results: Test results from this visit will be discussed in further detail at your follow-up appointment, if applicable. Discharge Plan Admission Attending Provider: Cody Mills Primary Care Provider: Henry Blanton Consulting Providers: Edgar Perkins Discharge Orders/Prescriptions Prescriptions: New oxycodone 5 mg tablet 5 - 10 mg PO Q4H PRN (Reason: pain) 5 Days Qty: 30 RF: 0 No Action lorazepam [Ativan] 1 mg tablet 1 mg PO QHS PRN (Reason: sleep) Qty: 30 RF: 0 Other Ambulatory Orders: 12 Lead EKG (Routine) Location: None Selected Ordered By: Dr. Edgar Perkins Referrals / Follow Up: Henry Blanton DO [Primary Care Provider] - Disposition Disposition (needs filled in before D/C Order can be placed): Home, Self Care
[2021-11-29 08:47] VITALS: BP 119/73; BP 93/51; PULSE 118; RESP 16; TEMP 36.6; O2SAT 89
[2021-11-29 09:00] VITALS: BP 129/87; BP 93/51; PULSE 115; RESP 16; O2SAT 97
[2021-11-29 09:15] VITALS: BP 120/81; BP 93/51; PULSE 107; RESP 16; TEMP 36.4; O2SAT 92
[2021-11-29 09:32] VITALS: BP 93/51
== END 2021-11-29 09:49 | disposition home or self-care (01) ==
LOC: SDC 05:55 → AC 08:01
PROVIDERS: Anesthesiology; PCP Family Medicine; Referring Provider Orthopaedic Surgery; Visit Provider Orthopaedic Surgery
PROC: (CPT 29827; principal; 2021-11-29 07:10)
DX: M19.011 Primary osteoarthritis, right shoulder (principal); M40.204 Unspecified kyphosis, thoracic region; M75.21 Bicipital tendinitis, right shoulder; M75.41 Impingement syndrome of right shoulder; M75.42 Impingement syndrome of left shoulder; G89.29 Other chronic pain; M19.90 Unspecified osteoarthritis, unspecified site; K21.9 Gastro-esophageal reflux disease without esophagitis; Z79.899 Other long term (current) drug therapy; F17.210 Nicotine dependence, cigarettes, uncomplicated
CPT/HCPCS: 29826; 64415; 36415; 85027; 87426; 93005; C9803; J7120; J2405

== ENCOUNTER 2022-02-14 08:25 | Day surgery (SDC) | payer MEDICAID, SELFPAY ==
[2022-02-14 08:55] VITALS: BP 112/69; PULSE 88; RESP 16; TEMP 36.4; O2SAT 100; BMI 25.8
[2022-02-14] MEDS: Lactated Ringers 1,000 ML 15 ML IV (08:55)
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
[2022-02-14] MEDS: Cefazolin 2 GM in 0.9% Normal Saline 100 ML IV (10:38)
[2022-02-14] MEDS: Epinephrine (1 mg/ml) 1 MG/ML VIAL (10:49)
[2022-02-14] MEDS: Lidocaine 1% /Epi 1:100 (20ml) 20 ML Vial (10:49)
[2022-02-14] MEDS: MethylPREDNISolone Acetate 40 MG/ML Vial IM (11:01)
[2022-02-14] MEDS: Bupivacaine 0.25% 30 ML Vial (11:01)
--- NOTE | 2022-02-14 11:12 | OP.PCM_ITS ---
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 Postoperative diagnosis: Grade 4 cartilage wear medial femoral condyle, degenerative tearing posterior horn and body medial and lateral meniscus, loose body Procedure: Right knee arthroscopic partial medial partial lateral meniscectomy removal of loose body and chondroplasty Anesthesia: General Estimated blood loss: 5 mL Tourniquet time: 19 minutes 300 mmHg Complications: none Indication for procedure: 51-year-old male patient who has had ongoing right knee pain who has failed conservative treatment did have MRI evidence of medial and lateral meniscus tear as well as DJD the patient did wish to proceed with an elective arthroscopic surgery to attempt to alleviate the symptoms. Risk benefits and alternatives of the procedure were reviewed including risk of bleeding infection nerve artery tissue damage need for further surgery continued pain and expected postoperative course. Procedure: The patient was met in the preoperative holding area. The operative extremity was identified by both patient and physician and family and marked. Patient was brought back to the operating room on a wheeled cart and transferred to the operating table in the supine position. Anesthesia was started. A well- padded tourniquet was placed on the operative extremity. A lower extremity leg wills was secured to the operative extremity. The contralateral extremity was well-padded and the end of the bed was flexed to 90 degrees. The patient was prepped and draped in the usual sterile fashion. A timeout was called to ensure the proper patient, procedure, and extremity were being contemplated. 0.5% Marcaine with epinephrine was injected into the planned incisional areas under the skin only. An Esmarch was used to exsanguinate the extremity and the tourniquet was inflated. An 11 blade scalpel was used to make a stab incision in the anterior lateral portal. The arthroscope was inserted into the intercondylar notch and inflow and outflow tubes were attached. Arthroscopic visualization began. The medial compartment was entered. an 18-gauge spinal needle was used to establish the placement for anterior medial portal. An 11 blade scalpel was used to make a stab incision. Blunt probe was inserted follow ed by a meniscal probe. Medially there is a loose body found and removed from the medial compartment, The medial compartment demonstrated grade 4 cartilage wear on the posterior aspect of the medial femoral condyle there was some loose cartilage flaps that were debrided with a shaver performing a gentle chondroplasty the lesion was felt to be too large to perform microfracture surgery. There is no to be degenerative horizontal tearing of the body and horn of the medial meniscus the ACL was found to be intact. The lateral compartment was entered there is no be degenerative tearing of the body and horn of the lateral meniscus with use of arthroscopic shaver partial medial lateral meniscectomy was performed The arthroscope was switched to the medial portal to complete the procedure. The medial and lateral gutters were inspected and were free of loose bodies. The patellofemoral joint was inspected grade 4 cartilage fissuring in the trochlea with grade 2-3 changes of the patella. Th ere was good patellar tracking. The knee was thoroughly irrigated and drained. An intra-articular injection with 5 cc 0.5% Marcaine plain and 40 mg of Depo- Medrol was injected intra-articularly. The arthroscope was removed the portals were closed with 3-0 nylon arthroscopic stitches. Followed by Xeroform 4 x 4's ABDs web roll and an Dav wrap. The tourniquet was let down and the drapes were removed. All counts were correct. The patient was brought back to the PACU in stable condition.
--- NOTE | 2022-02-14 11:16 | DCINST_ITS ---
Discharge Instructions Dressing / Incision Call your doctor if you observe: Shortness of breath and Chest pain Additional Dressing/Incision Instructions:: Ice and elevate next 72 hours .keep dressing on clean and dry for 48 hours then may remove begin showering daily but do not submerge in tub or pool. After shower may apply Band-Aids . Encourage knee range of motion weightbearing as tolerated, use crutches until confident in knee then may discontinue. No strenuous activity. When not ambulating keep iced and elevated next 72 hours. Do not mix pain medication with recreational drugs or alcohol only take as prescribed can be addictive and abusive, call with any questions or concerns. Follow Up Care Please Follow Up With: Cody Mills DO When: 2 weeks Test Results: Test results from this visit will be discussed in further detail at your follow- up appointment, if applicable. Discharge Plan Admission Primary Reason for Your Visit: Right knee arthroscopy Attending Provider: Cody Mills Primary Care Provider: Henry Blanton Discharge Orders/Prescriptions Prescriptions: New oxycodone 5 mg tablet 5 - 10 mg PO Q4H PRN (Reason: pain) 7 Days Qty: 40 0RF No Action baclofen 10 mg tablet 10 mg PO TID Qty: 30 3RF Referrals / Follow Up: Henry Blanton DO [Primary Care Provider] - Disposition Discharge Orders: Discharge Patient (Routine); Ordered 02/14/22 Ordered By: Dr. oCdy Mills
[2022-02-14 11:18] VITALS: BP 104/75; BP 112/69; PULSE 86; RESP 16; TEMP 36.6; O2SAT 100
[2022-02-14 11:30] VITALS: BP 112/69; PULSE 81; RESP 18; O2SAT 100
[2022-02-14 11:35] VITALS: BP 110/76; BP 112/69; PULSE 80; RESP 18; TEMP 36.2; O2SAT 100
[2022-02-14 11:53] VITALS: BP 112/69; BP 112/70; PULSE 80; RESP 16; O2SAT 98
== END 2022-02-14 12:44 | disposition home or self-care (01) ==
LOC: SDC 08:26 → AC 08:27
PROVIDERS: PCP Family Medicine; Referring Provider Orthopaedic Surgery; Visit Provider Orthopaedic Surgery
PROC: (CPT 29870; principal; 2022-02-14 10:30)
DX: S83.241A Other tear of medial meniscus, current injury, right knee, initial encounter (principal); S83.281A Other tear of lateral meniscus, current injury, right knee, initial encounter; M17.11 Unilateral primary osteoarthritis, right knee; X58.XXXA Exposure to other specified factors, initial encounter; F17.210 Nicotine dependence, cigarettes, uncomplicated
CPT/HCPCS: 29880; 01400; J7120; J2405

== ENCOUNTER → 2022-04-12 | Outpatient (CLI) | payer MEDICAID, SELFPAY ==
[2022-04-12 10:37] LABS: Lyme Ab Screen Interpretation REF LAB
[2022-04-12 11:35] LABS: Erythrocyte Sedimentation Rate 16 mm/hr (0-20)
[2022-04-12 11:50] LABS: PTHIN 35.9 pg/mL (18.4-80.1)
[2022-04-12 11:53] LABS: CPK Total, Creatine Kinase 42 U/L (39-308); CRP 4.09 mg/L (0.0-3.0); LDH 165 U/L (87-241)
[2022-04-13 15:08] LABS: Anti-Centromere B Ab <0.2 AI (0.0-0.9); Anti-Chromatin <0.2 AI (0.0-0.9); Anti-Jo <0.2 AI (0.0-0.9); Anti-Scleroderma-70 AB <0.2 AI (0.0-0.9); RNP Ab 0.3 AI (0.0-0.9); SJOGREN'S Anti-SS-A test < 0.2 AI (0.0-0.9); SJOGREN'S Anti-SS-B test < 0.2 AI (0.0-0.9); Smith Ab <0.2 AI (0.0-0.9)
[2022-04-13 16:09] LABS: Endomysial Antibody IgA Negative (Negative)
[2022-04-13 16:29] LABS: Anti-dsDNA Ab <1 IU/mL (0-9)
[2022-04-13 16:30] LABS: Immunoglobulin A 430 mg/dL (90-386); t-Transglutaminase IgA 3 U/mL (0-3)
[2022-04-19 16:09] LABS: Albumin 4.2 g/dL (2.9-4.4); Alpha-1-Globulins 0.3 g/dL (0.0-0.4); Cytoplasmic Ab (C-ANCA) <1:20 titer (Neg:<1:20); Gamma Globulin 1.2 g/dL (0.4-1.8); Immunoglobulin A 443 mg/dL (90-386); Immunoglobulin G 1145 mg/dL (603-1613); Immunoglobulin M 69 mg/dL (20-172)
[2022-04-20 12:32] LABS: Immunoglobulin E 133 IU/mL (6-495); Lyme Scn Total Ab w/Rflx Negative (Negative); Perinuclear Ab (P-ANCA) <1:20 titer (Neg:<1:20)
== END | disposition home or self-care (01) ==
LOC: LAB 10:35
PROVIDERS: PCP Family Medicine; Visit Provider Internal Medicine Gastroenterology
DX: R63.4 Abnormal weight loss (principal)
CPT/HCPCS: 36415; 82550; 82784; 82785; 83036; 83516; 83615; 83970; 84165; 85652; 86140; 86225; 86235; 86255; 86256; 86334; 86618

== ENCOUNTER → 2022-05-17 | Outpatient (CLI) | payer MEDICARE, MEDICAID, SELFPAY ==
[2022-05-17 08:29] LABS: Absolute Lymphocyte Count 2.17 X10^3/uL (0.83-4.51); Absolute Neutrophil Count 4.1 X10^3/uL (2.0-7.7); Basophil# 0.11 X10^3/uL; Basophil% 1.6 % (0-1); Eosinophil# 0.12 X10^3/uL; Eosinophils% 1.7 % (0-5); Hematocrit 47.4 % (40-54); Lymphocyte # 2.17 X10^3/ul (0.83-4.51); Lymphocyte % 30.7 % (19-41); Mean Corp Hgb Conc 33.8 g/dL (32-36); Mean Corpuscular Hgb 32.7 pg (27.0-32.0); Mean Corpuscular Volume 96.9 fL (80-94); Monocyte# 0.57 X10^3/uL; Monocyte% 8.1 % (0-10); NRBC Flagged by Analyzer 0 % (0-5); Neutrophil # 4.06 X10^3/uL (2.7-7.7); Neutrophil % 57.5 % (47-70); Platelet Count 274 K/mm3 (150-450); RBC Distribution Width CV 13.5 % (11.6-14.6); RBC Distribution Width SD 48.7 fl (35.1-43.9); Red Blood Count 4.89 M/mm3 (4.6-6.2); White Blood Count 7.1 K/mm3 (4.4-11.0)
[2022-05-17 08:33] LABS: Erythrocyte Sedimentation Rate 27 mm/hr (0-20)
[2022-05-17 08:57] LABS: ALB/GLOB Ratio 0.8 RATIO (0.9-2.4); AST(SGOT) 21 U/L (15-37); Alanine Aminotransfer ALT/SGPT 20 U/L (16-61); Albumin, Serum 3.7 g/dL (3.2-5.0); Alkaline Phosphatase 76 U/L (45-117); Anion Gap 2 (5-15); BUN 12 mg/dL (7-18); BUN/Creat Ratio 14.4 RATIO (10-20); CRP 6.98 mg/L (0.0-3.0); Calcium,Total 9.3 mg/dL (8.5-10.1); Chloride 106 mmol/L (98-107); Creatinine, Serum 0.84 mg/dL (0.70-1.30); EST Glomerular Filtration Rate 102 mL/min (>60); Est Glom Filt Rate - Afr Amer 123 mL/min (>60); Globulin 4.4 g/dL (2.2-4.2); Glucose 101 mg/dL (74-106); LDH 205 U/L (87-241); Potassium 3.8 mmol/L (3.5-5.1); Protein, Total 8.1 g/dL (6.4-8.2); Sodium Level 138 mmol/L (136-145)
[2022-05-18 14:09] LABS: Endomysial Antibody IgA Negative (Negative)
[2022-05-18 15:08] LABS: Anti-Centromere B Ab <0.2 AI (0.0-0.9); Anti-Chromatin <0.2 AI (0.0-0.9); Anti-Jo <0.2 AI (0.0-0.9); Anti-Scleroderma-70 AB <0.2 AI (0.0-0.9); RNP Ab 0.2 AI (0.0-0.9); SJOGREN'S Anti-SS-A test < 0.2 AI (0.0-0.9); SJOGREN'S Anti-SS-B test < 0.2 AI (0.0-0.9); Smith Ab <0.2 AI (0.0-0.9)
[2022-05-18 16:15] LABS: Anti-dsDNA Ab <1 IU/mL (0-9)
[2022-05-18 16:19] LABS: Immunoglobulin A 430 mg/dL (90-386); t-Transglutaminase IgA <2 U/mL (0-3)
[2022-05-25 09:08] LABS: Albumin 3.7 g/dL (2.9-4.4); Alpha-1-Globulins 0.4 g/dL (0.0-0.4); Cytoplasmic Ab (C-ANCA) <1:20 titer (Neg:<1:20); Gamma Globulin 1.2 g/dL (0.4-1.8); Immunoglobulin A 433 mg/dL (90-386); Immunoglobulin E 128 IU/mL (6-495); Immunoglobulin G 1138 mg/dL (603-1613); Immunoglobulin M 62 mg/dL (20-172); PROEL- TOTAL PROTEIN 7.5 g/dL (6.0-8.5)
[2022-05-26 14:53] LABS: Perinuclear Ab (P-ANCA) <1:20 titer (Neg:<1:20)
== END | disposition home or self-care (01) ==
LOC: LAB 07:39
PROVIDERS: PCP Family Medicine; Referring Provider Internal Medicine Gastroenterology; Visit Provider Internal Medicine Gastroenterology
DX: K58.0 Irritable bowel syndrome with diarrhea (principal)
CPT/HCPCS: 36415; 80053; 82784; 82785; 83516; 83615; 84165; 85025; 85652; 86140; 86225; 86235; 86255; 86256; 86334

== ENCOUNTER → 2022-07-11 | Outpatient (CLI) | payer MEDICARE, MEDICAID, SELFPAY | END | disposition home or self-care (01) | PROVIDERS: PCP Family Medicine; Referring Provider Nurse Practitioner Adult Health; Visit Provider Nurse Practitioner Adult Health | DX: R63.4 Abnormal weight loss (principal); K52.9 Noninfective gastroenteritis and colitis, unspecified | CPT/HCPCS: 36415 ==

== ENCOUNTER → 2022-07-14 | Outpatient (CLI) | payer MEDICARE, MEDICAID, SELFPAY ==
--- NOTE | 2022-07-14 10:10 | US_ITS ---
INDICATION: epigastric and RUQ pain -- RUQ EXAMINATION: Ultrasound US Abdomen Limited (quadrant) TECHNIQUE: Plata scale imaging with graded compression and color doppler was obtained of the right lower quadrant. COMPARISON: None. FINDINGS: Liver: 15.7 cm in length. Normal size. Diffuse mildly increased parenchymal echogenicity compatible with fatty infiltration. No parenchymal masses. No intrahepatic bile duct dilation. Gallbladder: Normal size. Nondistended. The wall measures 2 mm and is within normal limits. No gallstones or sludge. No pericholecystic fluid. Negative sonographic Andrews''s sign. Common bile duct: Measures 6 mm and is within normal limits. Pancreas: The visualized head is unremarkable. The remainder the pancreas is obscured by overlying bowel gas. Right kidney: 11.4 x 4.9 x 4.5 cm. Normal size. The cortex measures 1.5 cm and is within normal limits. Normal parenchymal echogenicity. No parenchymal masses. No hydronephrosis or nephrolithiasis. US/Abdomen Limited IMPRESSION: 1. Mildly increased parenchymal echogenicity may relate to hepatic steatosis. No sonographic evidence of hepatic masses. 2. The remainder of the right upper quadrant ultrasound is unremarkable with no acute findings. Electronically Signed: Donato Munoz, at 16:03 EST ,
== END | disposition home or self-care (01) ==
LOC: US 10:10
PROVIDERS: PCP Family Medicine; Referring Provider Nurse Practitioner Adult Health; Visit Provider Nurse Practitioner Adult Health
DX: R10.11 Right upper quadrant pain (principal)
CPT/HCPCS: 76705

== ENCOUNTER → 2022-07-19 | Outpatient (CLI) | payer MEDICARE, MEDICAID, SELFPAY ==
[2022-07-19 19:14] LABS: Hepatitis B Surface Antibody Non-Reactive; Rubella IgG Reactive (Nonreactive)
[2022-07-21 19:07] LABS: HEPATITIS B SURFACE AG Negative (Negative); Hep C Antibodies <0.1 s/co ratio (0.0-0.9); Hepatitis A IgM Antibody Negative (Negative); Hepatitis B Core AB IgM Negative (Negative); QNTFERON TB Mitogen Value > 10.00 IU/mL (.); QNTFERON TB Nil Value 0.05 IU/mL (.); QNTFERON TB1+ Ag Value 0.13 IU/mL (.); QNTFERON TB2+ Ag Value 0.17 IU/mL (.)
[2022-07-21 20:18] LABS: Mumps Antibody,IgG 88.5 AU/mL (Immune >10.9); QNTIFERON TB Positive Criteria Negative (Negative); V-Zoster IgG (Immunity) 2055 index (Immune >165)
== END | disposition home or self-care (01) ==
LOC: LAB 16:09
PROVIDERS: PCP Family Medicine; Visit Provider Nurse Practitioner Adult Health
DX: Z01.84 Encounter for antibody response examination (principal); K50.90 Crohn's disease, unspecified, without complications
CPT/HCPCS: 36415; 80074; 86480; 86706; 86735; 86762; 86765; 86787

== ENCOUNTER → 2022-08-02 | Outpatient (CLI) | payer MEDICARE, MEDICAID, SELFPAY ==
--- NOTE | 2022-08-02 15:32 | CT_ITS ---
EXAM: CT ABDOMEN AND PELVIS WITH INTRAVENOUS CONTRAST CLINICAL INDICATION: crohn''s -- enterography TECHNIQUE: Helically acquired images were obtained of the abdomen and pelvis with intravenous contrast. This CT exam was performed using one or more of the following dose reduction techniques: automated exposure control, adjustment of the mA and/or kV according to patient size, and/or use of iterative reconstruction technique. This report was created using [employer] report generation technology. CONTRAST: Oral and amp; IV BREEZA NEUTRAL and amp; 100mL Isovue-370 COMPARISON: None. FINDINGS: LOWER THORAX: There is minimal atelectasis in the lung bases. No cardiomegaly. No significant pericardial effusion. ABDOMEN: LIVER: Unremarkable. Homogeneous. No focal mass. GALLBLADDER AND BILE DUCTS: Unremarkable. No calcified gallstones. No gallbladder distention or wall edema. No intra- or extrahepatic biliary ductal dilation. PANCREAS: Unremarkable. No focal cystic or solid mass. SPLEEN: Unremarkable. Normal size without focal cystic or solid mass. ADRENALS: Unremarkable. No nodules. KIDNEYS AND URETERS: Unremarkable. Normal renal size and position. No hydronephrosis. STOMACH AND BOWEL: Stomach is mildly distended with fluid. No focal inflammatory change. PELVIS: APPENDIX: No evidence of acute appendicitis. BLADDER: Unremarkable. REPRODUCTIVE: Unremarkable as visualized. No mass. ABDOMEN and PELVIS: INTRAPERITONEAL SPACE: Unremarkable. No ascites or other fluid collection. No free air. BONES/JOINTS: Unremarkable. No suspicious lytic or blastic abnormality. SOFT TISSUES: Unremarkable. No discrete abdominal or pelvic wall hernia. VASCULATURE: Unremarkable. Abdominal aorta is non-dilated. LYMPH NODES: Unremarkable. No enlarged lymph nodes. CT/Abdomen/Pelvis WITH Contrast IMPRESSION: Mild fluid distention of the stomach. No other acute abnormalities are identified. Electronically Signed: Elton Alicia MD at 18:59 EST ,
== END | disposition home or self-care (01) ==
LOC: CT 15:31
PROVIDERS: PCP Family Medicine; Referring Provider Nurse Practitioner Adult Health; Visit Provider Nurse Practitioner Adult Health
DX: K50.90 Crohn's disease, unspecified, without complications (principal); R63.4 Abnormal weight loss
CPT/HCPCS: 74177; Q9967

== ENCOUNTER → 2022-08-14 | Outpatient (CLI) | payer MEDICARE, MEDICAID, SELFPAY ==
--- NOTE | 2022-08-14 07:41 | NM_ITS ---
CLINICAL: 52-year-old male with history of abdominal bloating and known inflammatory bowel disease. SEMI-SOLID PHASE 99m Tc SULFUR COLLOID GASTRIC EMPTYING STUDY COMPARISON: CT of the abdomen-pelvis report 08/02/2022 FINDINGS: The patient was administered 1.1 mCi of 99m Tc sulfur colloid mixed with oatmeal and consumed per os. Image acquisitions in the anterior-posterior projections were obtained for 46 minutes. There is prompt visualization of the stomach. There is no gastroesophageal reflux identified. The T ? raw data emptying was calculated to be 45.22 minutes, (Normal: 12-56 minutes). The patient terminated acquisition at 46 minutes secondary to back discomfort. NM/Gastric Emptying Study IMPRESSION: 1. NORMAL 99m Tc sulfur colloid semi-solid phase (oatmeal) gastric emptying imaging examination. A. There is normal and preserved semi-solid phase gastric emptying compared to normal controls. (Joi et al, J Nucl Med Tech 38: 186, 2010). Electronically Signed: Vipul Enciso, at 20:59 EST ,
== END | disposition home or self-care (01) ==
LOC: NM 07:41
PROVIDERS: PCP Family Medicine; Visit Provider Nurse Practitioner Adult Health
DX: K31.89 Other diseases of stomach and duodenum (principal)
CPT/HCPCS: 78264; A9541

== ENCOUNTER 2023-01-26 12:30 | Outpatient (RCR) | payer MEDICARE, MEDICAID, SELFPAY ==
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
--- NOTE | 2023-04-17 08:19 | HP.PT.NRP(2) ---
Patient Information Patient Information: TIMMY HARRISON was seen in my office for initial evaluation on . The following Plan of Care was established for this patient: Last Seen Last Seen: This patient was last seen in our office . Pertinent comments regarding their Physical therapy will appear below: At this point I will be discontinuing this patient from physical therapy. I would be happy to see this patient again in the future if found appropriate by the physician. Thank you! Liliana Epps, MPT
== END 2023-01-26 19:00 | disposition home or self-care (01) ==
LOC: PT 12:30
PROVIDERS: PCP Family Medicine; Referring Provider Family Medicine; Visit Provider Family Medicine
DX: M48.13 Ankylosing hyperostosis [Forestier], cervicothoracic region (principal)
CPT/HCPCS: 97140; 97162

== ENCOUNTER → 2024-07-01 | Outpatient (CLI) | payer MEDICARE, SELFPAY ==
[2024-07-01 15:08] LABS: Absolute Lymphocyte Count 2.22 X10^3/uL (0.83-4.51); Absolute Neutrophil Count 6.2 X10^3/uL (2.0-7.7); Basophil# 0.14 X10^3/uL; Basophil% 1.5 % (0-1); Eosinophils% 1.1 % (0-5); Hematocrit 45.7 % (40-54); Hemoglobin 14.8 g/dL (13.0-16.5); Lymphocyte # 2.22 X10^3/ul (0.83-4.51); Lymphocyte % 23.4 % (19-41); Mean Corp Hgb Conc 32.4 g/dL (32-36); Mean Corpuscular Hgb 30.6 pg (27.0-32.0); Mean Corpuscular Volume 94.6 fL (80-94); Mean Platelet Vol. 9.8 fl (6.2-12.0); Monocyte% 8.4 % (0-10); NRBC Flagged by Analyzer 0 % (0-5); Neutrophil # 6.18 X10^3/uL (2.7-7.7); Neutrophil % 65.3 % (47-70); Platelet Count 382 K/mm3 (150-450); RBC Distribution Width CV 12.6 % (11.6-14.6); RBC Distribution Width SD 43.7 fl (35.1-43.9); Red Blood Count 4.83 M/mm3 (4.6-6.2); White Blood Count 9.5 K/mm3 (4.4-11.0)
[2024-07-01 15:36] LABS: ALB/GLOB Ratio 0.8 RATIO (0.9-2.4); AST(SGOT) 25 U/L (15-37); Alanine Aminotransfer ALT/SGPT 43 U/L (16-61); Albumin, Serum 3.6 g/dL (3.2-5.0); Alkaline Phosphatase 83 U/L (45-117); Anion Gap 5 (5-15); BUN 14 mg/dL (7-18); BUN/Creat Ratio 16.5 RATIO (10-20); Calcium,Total 9.4 mg/dL (8.5-10.1); Chloride 105 mmol/L (98-107); Creatinine, Serum 0.85 mg/dL (0.70-1.30); EST Glomerular Filtration Rate 99 mL/min (>60); Est Glom Filt Rate - Afr Amer 120 mL/min (>60); Globulin 4.6 g/dL (2.2-4.2); Glucose 95 mg/dL (74-106); Potassium 4.1 mmol/L (3.5-5.1); Protein, Total 8.2 g/dL (6.4-8.2); Sodium Level 137 mmol/L (136-145)
== END | disposition home or self-care (01) ==
LOC: BIMLAB 13:44
PROVIDERS: PCP Family Medicine; Referring Provider Family Medicine; Visit Provider Family Medicine
DX: K50.90 Crohn's disease, unspecified, without complications (principal); R61 Generalized hyperhidrosis
CPT/HCPCS: 36415; 80053; 85025

== ENCOUNTER → 2024-10-06 | Outpatient (CLI) | payer MEDICARE, MEDICAID, SELFPAY ==
--- NOTE | 2024-10-06 10:45 | RAD_ITS ---
EXAM: XR Right Hip With Pelvis When Performed, 2 or 3 Views CLINICAL INDICATION: HIP PAIN TECHNIQUE: Two or three views of the right hip with pelvis when performed. COMPARISON: No relevant prior studies available. FINDINGS: BONES/JOINTS: Mild degenerative change of the right hip joint. No acute fracture. No dislocation. SOFT TISSUES: Unremarkable. RAD/HIP, UNI W/ Pelvis 2-3 Views IMPRESSION: Degenerative changes as above. Reading [facility]
== END | disposition home or self-care (01) ==
LOC: RAD 10:35
PROVIDERS: PCP Family Medicine; Referring Provider Family Medicine; Visit Provider Family Medicine
DX: M25.551 Pain in right hip (principal)
CPT/HCPCS: 73502

== ENCOUNTER → 2025-03-31 | Outpatient (CLI) | payer MEDICARE, MEDICAID, SELFPAY ==
[2025-03-31 15:23] LABS: Hematocrit 44.5 % (40-54); Hemoglobin 14.9 g/dL (13.0-16.5); Immature Granulocytes Count 0.030 X10^3/uL (0.0-0.0); Mean Corp Hgb Conc 33.5 g/dL (32-36); Mean Corpuscular Volume 91.6 fL (80-94); Mean Platelet Vol. 9.8 fl (6.2-12.0); NRBC Flagged by Analyzer 0 % (0-5); Platelet Count 366 K/mm3 (150-450); RBC Distribution Width CV 14.8 % (11.6-14.6); RBC Distribution Width SD 49.1 fl (35.1-43.9); Red Blood Count 4.86 M/mm3 (4.6-6.2); White Blood Count 8.1 K/mm3 (4.4-11.0)
[2025-03-31 15:54] LABS: AST(SGOT) 28 U/L (<=37); Alanine Aminotransfer ALT/SGPT 15 U/L (<=46); Albumin, Serum 4.2 g/dL (3.5-5.0); Alkaline Phosphatase 87 U/L (40-129); Anion Gap 12 (5-15); BUN 7 mg/dL (4-19); BUN/Creat Ratio 9.8 RATIO (10-20); Calcium,Total 9.5 mg/dL (7.6-11.0); Carbon Dioxide 23.5 mmol/L (21.0-32.0); Chloride 102 mmol/L (98-108); Globulin 3.8 g/dL (2.2-4.2); Glucose 102 mg/dL (70-99); Potassium 4.3 mmol/L (3.3-5.1)
--- OUTSIDE RECORDS SUMMARY | 2025-03-31 22:31 | XMS RPT_ITS | CCD ---
Author Organization [facility] CliniSyil Care Team Providers Care Instructor Bridge Name Role Phone DARRIN FLORES Admitting Unavailable JADARRIN CASTAÑEDA Attending Unavailable DARRIN FLORES Primary Care Unavailable SRINI PELAEZ Consulting Unavailable PROVIDER, UNKNOWN Consulting Unavailable PROVIDER, UNKNOWN Consulting Unavailable Laurie Tapia Unavailable Unavailable Melissa Rubio Unavailable Unavailable Joan Mann Unavailable Unavailable LAUREN HUFF MD Admitting Unavailable LAUREN HUFF MD Attending Unavailable LAUREN HUFF MD Primary Care Unavailable Aruna, Lauren Primary Care Provider MIEK PLUMMER Admitting Unavailable GRADY AYALA Attending Unavailable MIKE PLUMMER Referring Unavailable KALISETTI, LAUREN Primary Care Unavailable GRADY AYALA Admitting Unavailable GRADY AYALA Referring Unavailable KALISETTI, LAUREN Primary Care Unavailable GRADY AYALA Admitting Unavailable GEOVANNA HUGGINS Attending Unavailable GRADY AYALA Referring Unavailable KALISETTI, LAUREN Primary Care Unavailable GRADY AYALA Attending Unavailable KALISETTI, LAUREN Primary Care Unavailable THELMA MEYER Attending Unavailable KALISETTI, LAUREN Primary Care Unavailable GRADY AYALA Attending Unavailable GRADY AYALA Attending Unavailable KALISETTI, LAUREN Primary Care Unavailable AYALAGRADY Attending Unavailable KALISETTI, LAUREN Primary Care Unavailable THELMA MEYER Attending Unavailable KALISETTI, LAUREN Primary Care Unavailable GRADY AYALA Attending Unavailable KALISETTI, LAUREN Primary Care Unavailable GRADY AYALA Attending Unavailable KALISETTI, LAUREN Primary Care Unavailable Henry Blanton Unavailable Dr. Henry Blanton Primary Care Provider Dr. Henry Blanton Referring Provider Dr. Cody Mills Attending Provider [phone] Pj, Dr. Ortiz Attending Provider Dr. Cody Mills Referring Provider [phone] Hector, Dr. Maki Attending Provider [phone] Dr. Henry Blanton Attending Provider [phone]([facility])[phone] Dr. Thad Vann Attending Provider [phone] Dr. Henry Blanton Primary Care Provider [phone] Dr. Henry Blanton Referring Provider Dr. Cody Mills Attending Provider [phone] Pj, Dr. Ortiz Attending Provider [phone] Henry Blanton Primary Care Provider [phone] [phone] Dr. Henry Blanton Referring Provider [phone]([facility])[phone] Dr. Glynn Young Attending Provider [phone] Dr. Fuad Yu Attending Provider [phone] Dr. Henry Blanton Primary Care Provider [phone] Dr. Henry Blanton Referring Provider [phone]([facility])[phone] Dr. Henry Blanton Attending Provider [phone] Dr. Cody Mills Referring Provider Dr. Cody Mills Other Provider [phone] Edgar Perkins Other Provider Dr. Henry Blanton Primary Care Provider [phone] Dr. Henry Blnaton Referring Provider Dr. Cody Mills Attending Provider [phone] Dr. Henry Blanton Attending Provider [phone] Dr. Thad Vann Attending Provider [phone] Pj, Dr. Ortiz Attending Provider Dr. Henry Blanton Primary Care Provider [phone] Dr. Henry Blanton Attending Provider [phone] Dr. Henry Blanton Referring Provider [phone] Dr. Cody Mills Attending Provider [phone] Dr. Thad Vann Attending Provider [phone] Dr. Angel Oliva Attending Provider [phone] Cody Mills Referring Provider [phone] Dr. Cody Mills Other Provider [phone]([facility])-[phone] Glynn Young Attending Provider [phone] Dr. Henry Blanton Primary Care Provider [phone] Dr. Henry Blanton Referring Provider Dr. Thad Vann Attending Provider [phone] Dr. Angel Oliva Attending Provider [phone] Cody Mills Attending Provider [phone] Dr. Cody Mills Referring Provider [phone] Dr. Cody Mills Other Provider [phone]([facility])-[phone] Glynn Young Attending Provider [phone] Dr. Henry Blanton Attending Provider Dr. Henry Blanton Primary Care Provider [phone] Dr. Henry Blanton Referring Provider [phone] Dr. Cody Mills Attending Provider [phone] Lorenzo MEDICAL UNDERWRITER, MEDICAL UNDERWRITER-C Carole Wick Attending Provider [phone] Dr. Henry Blanton Primary Care Provider [phone] Dr. Henry Blanton Referring Provider [phone] Dr. Glynn Young Attending Provider [phone] Dr. Henry Blanton DO Primary Care Provider Dr. Henry Blanton DO Attending Provider [phone] Dr. Henry Blanton DO Referring Provider [phone] Dr. Henry Blanton DO Primary Care Provider Dr. Henry Blanton DO Attending Provider [phone] Harvinder WORLEY, Dr. Henry Howe Referring Provider [phone] Brown, Henry R Attending Unavailable Brown, Henry R Referring Unavailable Brown, Henry R Primary Care Unavailable Brown, Henry R Primary Care Unavailable Brown, Henry R Attending Unavailable Brown, Henry R Referring Unavailable Brown, Henry R Primary Care Unavailable Brown, Henry R Attending Unavailable Brown, Henry R Referring Unavailable Brown, Henry R Attending Unavailable Brown, Henry R Referring Unavailable Brown, Henry R Primary Care Unavailable Brown, Henry R Primary Care Unavailable Brown, Henry R Attending Unavailable Brown, Henry R Referring Unavailable Brown, Henry R Primary Care Unavailable Brown, Henry R Attending Unavailable Brown, Henry R Referring Unavailable Harvinder WORLEY, Dr. Henry Howe Primary Care Provider [phone] Harvinder WORLEY, Dr. Henry Howe Attending Provider [phone] Harvinder WORLEY, Dr. Henry Howe Referring Provider [phone] Medications Current Medications Medication Drug Class(es) Dates Sig (Normalized) Sig (Original) acetaminophen 500 mg oral capsule (8 sources) Start: 12-30-2024 take 4 capsules by mouth every six hours as needed Acetaminophen 500 mg capsule Active 2000 mg PO EVERY 6 HOURS as needed December 30, 2024 12:56pm Start: 04-19-2022 End: 12-30-2024 take 4 capsules by mouth once as needed Acetaminophen 500 mg capsule Discontinued 2000 mg PO ONCE as needed April 19, 2022 12:00am December 30, 2024 12:57pm Start: 04-19-2022 take 2000 mg by mouth once Raegan taminophen Active 2000 MG PO ONCE April 18, 2022 11:00pm acetaminophen 325 mg / oxyCODONE hydrochloride 5 mg oral tablet (20 sources) Opioid Agonist Start: 03-03-2025 Oxycodone-Acet aminophen (Percocet) 5-325 mg tablet Active 1 {tbl} PO EVERY 6 HOURS as needed for pain 120 30 0 March 03, 2025 April 01, 2025 12:00am 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], cervicothoracic region Start: 09-02-2024 End: 10-02-2024 Oxycodone-Acetaminophen (Per cocet) 5-325 mg tablet Discontinued 1 {tbl} PO EVERY 6 HOURS as needed for pain 120 30 0 September 02, 2024 October 01, 2024 12:00am October 02, 2024 12:11am 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], cervicothoracic region Start: 07-31-2024 End: 08-30-2024 Oxycodone-Acetaminophen (Per cocet) 5-325 mg tablet Discontinued 1 {tbl} PO EVERY 6 HOURS as needed for pain 120 30 0 July 31, 2024 August 29, 2024 1:00am August 30, 2024 1:18am 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], cervicothoracic region Start: 06-04-2024 End: 07-04-2024 Oxycodone-Acetaminophen (Per cocet) 5-325 mg tablet Discontinued 1 {tbl} PO EVERY 6 HOURS as needed for pain 120 30 0 June 04, 2024 July 03, 2024 1:00am July 04, 2024 1:12am 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], cervicothoracic region Start: 05-02-2024 End: 05-13-2024 Oxycodone-Acetaminophen (Per cocet) 5-325 mg tablet Discontinued 1 {tbl} PO EVERY 6 HOURS as needed for pain 120 7 0 May 06, 2024 May 12, 2024 12:00am May 13, 2024 12:08am 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], cervicothoracic region Start: 03-05-2024 End: 04-04-2024 Oxycodone-Acetaminophen (Per cocet) 5-325 mg tablet Discontinued 1 {tbl} PO EVERY 6 HOURS as needed for pain 120 30 0 March 05, 2024 April 03, 2024 12:00am April 04, 2024 12:05am 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], cervicothoracic region Start: 02-15-2024 End: 02-29-2024 Oxycodone-Acetaminophen (Per cocet) 5-325 mg tablet Discontinued 1 {tbl} PO EVERY 6 HOURS as needed for pain 60 14 0 February 15, 2024 February 28, 2024 12:00am February 29, 2024 12:05am 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], cervicothoracic region Start: 01-15-2024 End: 02-14-2024 Oxycodone-Acetaminophen (Per cocet) 5-325 mg tablet Discontinued 1 {tbl} PO EVERY 6 HOURS as needed for pain 120 30 0 January 15, 2024 February 13, 2024 12:00am February 14, 2024 12:03am 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], cervicothoracic region Start: 12-11-2023 End: 01-10-2024 Oxycodone-Acetaminophen (Per cocet) 5-325 mg tablet Discontinued 1 {tbl} PO EVERY 6 HOURS as needed for pain 120 30 0 December 11, 2023 January 09, 2024 12:00am January 10, 2024 12:04am 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], cervicothoracic region Start: 11-08-2023 End: 12-08-2023 Oxycodone-Acetaminophen (Per cocet) 5-325 mg tablet Discontinued 1 {tbl} PO EVERY 6 HOURS as needed for pain 120 30 0 November 08, 2023 December 07, 2023 12:00am December 08, 2023 12:12am 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], cervicothoracic region Start: 11-05-2023 End: 11-06-2023 Oxycodone-Acetaminophen (Per cocet) 5-325 mg tablet Discontinued 1 {tbl} PO EVERY 6 HOURS as needed for pain 12 3 0 November 05, 2023 November 07, 2023 12:00am November 06, 2023 8:36am 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], cervicothoracic region Start: 10-03-2023 End: 11-02-2023 Oxycodone-Acetaminophen (Per cocet) 5-325 mg tablet Discontinued 1 {tbl} PO EVERY 6 HOURS as needed for pain 120 30 0 October 03, 2023 November 01, 2023 12:00am November 02, 2023 12:06am 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], cervicothoracic region cyclobenzaprine hydrochloride 10 mg oral tablet (12 sources) Muscle Relaxant Start: 04-01-2024 End: 03-13-2025 take 1 tablet by mouth three times daily Cyclobenzaprine 10 mg tablet Active 10 mg PO THREE TIMES A DAY 90 2 March 13, 2025 8:48am gabapentin 300 mg oral capsule (6 sources) Anti-epileptic Agent Start: 04-27-2020 gabapentin (NEURONTIN) 300 MG capsule oxyCODONE hydrochloride 10 mg oral tablet (20 sources) Opioid Agonist Start: 03-24-2025 take 1 tablet by mouth every eight hours as needed for pain Oxycodone 10 mg tablet Active 10 mg PO Q8H as needed for pain 90 30 0 March 24, 2025 April 22, 2025 12:00am 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], cervicothoracic region Start: 09-30-2024 End: 03-01-2025 take 1 tablet by mouth every eight hours as needed for pain Oxycodone 10 mg tablet Discontinued 10 mg PO Q8H as needed for pain 90 30 0 January 30, 2025 February 28, 2025 12:00am March 01, 2025 12:08am 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], cervicothoracic region Start: 07-01-2024 End: 07-31-2024 take 1 tablet by mouth every six hours as needed for pain Oxycodone 5 mg tablet Discontinued 5 mg PO EVERY 6 HOURS as needed for pain 120 30 0 July 01, 2024 July 30, 2024 1:00am July 31, 2024 1:11am 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], cervicothoracic region Start: 02-14-2022 End: 04-10-2022 take 5-10 mg by mouth every four hours as needed for pain Oxycodone 5 mg tablet Discontinued 5 - 10 mg PO Q4H as needed for pain 40 7 0 February 14, 2022 April 10, 2022 10:05am Other acute postprocedural pain Other acute postprocedural pain Start: 11-29-2021 End: 12-15-2021 take 5-10 mg by mouth every four hours as needed for pain Oxycodone 5 mg tablet Discontinued 5 - 10 mg PO Q4H as needed for pain 30 5 0 November 29, 2021 December 15, 2021 8:54am Other acute postprocedural pain Other acute postprocedural pain Completed/Discontinued Medications Medication Drug Class(es) Dates Sig (Normalized) Sig (Original) acetaminophen 325 mg / HYDROcodone bitartrate 5 mg oral tablet (20 sources) Opioid Agonist Start: 03-04-2024 End: 04-01-2024 Hydrocodone-Acetamino phen 5-325 mg tablet Discontinued 1 {tbl} PO EVERY 6 HOURS as needed for pain 120 30 0 March 04, 2024 April 02, 2024 12:00am April 01, 2024 2:11pm 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 Neck pain Ankylosing hyperostosis [Forestier], cervicothoracic region Cervicalgia Start: 09-04-2023 End: 10-04-2023 Hydrocodone-Acetaminophen 5- 325 mg tablet Discontinued 1 {tbl} PO EVERY 6 HOURS as needed for pain 120 30 0 September 04, 2023 October 03, 2023 12:00am October 04, 2023 12:06am 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 Neck pain Ankylosing hyperostosis [Forestier], cervicothoracic region Cervicalgia Start: 08-02-2023 End: 09-01-2023 Hydrocodone-Acetaminophen 5- 325 mg tablet Discontinued 1 {tbl} PO EVERY 6 HOURS as needed for pain 120 30 0 August 02, 2023 August 31, 2023 1:00am September 01, 2023 1:12am 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 Neck pain Ankylosing hyperostosis [Forestier], cervicothoracic region Cervicalgia Start: 05-08-2023 End: 07-28-2023 Hydrocodone-Acetaminophen 5- 325 mg tablet Discontinued 1 {tbl} PO EVERY 6 HOURS as needed for pain 120 30 0 May 30, 2023 June 28, 2023 1:00am June 28, 2023 2:42pm 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 Neck pain Ankylosing hyperostosis [Forestier], cervicothoracic region Cervicalgia Start: 04-03-2023 End: 05-03-2023 Hydrocodone-Acetaminophen 5- 325 mg tablet Discontinued 1 {tbl} PO EVERY 6 HOURS as needed for pain 120 30 0 April 03, 2023 May 02, 2023 12:00am May 03, 2023 12:04am 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 Neck pain Ankylosing hyperostosis [Forestier], cervicothoracic region Cervicalgia Start: 03-01-2023 End: 03-31-2023 Hydrocodone-Acetaminophen 5- 325 mg tablet Discontinued 1 {tbl} PO EVERY 6 HOURS as needed for pain 120 30 0 March 01, 2023 March 30, 2023 12:00am March 31, 2023 12:15am 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 Neck pain Ankylosing hyperostosis [Forestier], cervicothoracic region Cervicalgia Start: 01-29-2023 End: 02-28-2023 Hydrocodone-Acetaminophen 5- 325 mg tablet Discontinued 1 {tbl} PO EVERY 6 HOURS as needed for pain 120 30 0 January 29, 2023 February 27, 2023 12:00am February 28, 2023 12:03am 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 Neck pain Ankylosing hyperostosis [Forestier], cervicothoracic region Cervicalgia Start: 11-28-2022 End: 01-24-2023 Hydrocodone-Acetaminophen 5- 325 mg tablet Discontinued 1 {tbl} PO EVERY 6 HOURS as needed for pain 120 30 0 December 25, 2022 January 23, 2023 12:00am January 24, 2023 12:04am 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 Neck pain Ankylosing hyperostosis [Forestier], cervicothoracic region Cervicalgia Start: 10-27-2022 End: 10-27-2022 Hydrocodone-Acetaminophen 5- 325 mg tablet Discontinued 1 {tbl} PO EVERY 6 HOURS as needed for pain 120 30 0 October 27, 2022 November 25, 2022 12:00am October 27, 2022 1:23pm 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 Neck pain Ankylosing hyperostosis [Forestier], cervicothoracic region Cervicalgia Start: 10-27-2022 End: 11-26-2022 Hydrocodone-Acetaminophen 5- 325 mg tablet Discontinued 1 {tbl} PO EVERY 6 HOURS as needed for pain 120 30 0 October 27, 2022 November 25, 2022 12:00am November 26, 2022 12:04am 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 Neck pain Ankylosing hyperostosis [Forestier], cervicothoracic region Cervicalgia Start: 09-19-2022 End: 10-19-2022 Hydrocodone-Acetaminophen 5- 325 mg tablet Discontinued 1 {tbl} PO EVERY 6 HOURS as needed for pain 120 30 0 September 19, 2022 October 18, 2022 12:00am October 19, 2022 12:04am 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 Neck pain Ankylosing hyperostosis [Forestier], cervicothoracic region Cervicalgia Start: 06-30-2020 HYDROcodone-ac etaminophen (NORCO) 5-325 mg per tablet amoxicillin 500 mg oral tablet (3 sources) Penicillin-class Antibacterial Start: 06-28-2023 End: 01-01-2024 take 1 tablet by mouth three times daily Amoxicillin 500 mg tablet Discontinued 500 mg PO THREE TIMES A DAY 30 0 June 28, 2023 1:00am January 01, 2024 1:02pm amoxicillin 50 mg/ml / clavulanate 12.5 mg/ml oral suspension (14 sources) Penicillin-class Antibacterial Start: 04-22-2021 End: 05-05-2021 take 1 mL by mouth every twelve hours Amoxicillin-Pot Clavulanate (Augmentin) 250-62.5 mg/5 mL suspension for reconstitution Discontinued 10 mL PO Q12H 200 0 April 22, 2021 12:00am May 05, 2021 11:02am Start: 04-22-2021 End: 05-05-2021 take 1 mL by mouth every twelve hours Amoxicillin-Pot Clavulanate (Augmentin) 250-62.5 mg/5 mL suspension for reconstitution Discontinued 10 ML PO Q12H 200 April 21, 2021 11:00pm May 05, 2021 10:02am baclofen 10 mg oral tablet (20 sources) gamma-Aminobutyric Acid-ergic Agonist Start: 01-01-2024 End: 04-01-2024 take 1 tablet by mouth three times daily Baclofen 10 mg tablet Discontinued 10 mg PO THREE TIMES A DAY 90 1 March 18, 2024 8:11am April 01, 2024 2:19pm Start: 01-04-2022 End: 12-29-2023 take 1 tablet by mouth three times daily Baclofen 10 mg tablet Discontinued 10 mg PO THREE TIMES A DAY 90 30 0 November 29, 2023 8:56am December 28, 2023 12:00am December 29, 2023 12:14am celecoxib 200 mg oral capsule (14 sources) Nonsteroidal Anti-inflammatory Drug Start: 06-22-2021 End: 09-12-2021 take 1 capsule by mouth once daily Celecoxib (Celebrex) 200 mg capsule Discontinued 200 mg PO DAILY 30 0 June 22, 2021 1:00am September 12, 2021 2:42pm cephalexin 500 mg oral capsule (3 sources) Cephalosporin Antibacterial Start: 12-25-2022 End: 03-28-2023 take 1 capsule by mouth twice daily Cephalexin 500 mg capsule Discontinued 500 mg PO TWICE A DAY 20 0 December 25, 2022 12:00am March 28, 2023 10:23am cholecalciferol 0.025 mg oral capsule (14 sources) Vitamin D Start: 02-18-2021 End: 03-07-2021 take 1 capsule by mouth once daily Cholecalciferol (Vitamin D3) 25 mcg (1,000 unit) capsule Discontinued 25 ug PO DAILY February 18, 2021 12:00am March 07, 2021 9:06am dicyclomine hydrochloride 20 mg oral tablet (15 sources) Anticholinergic Start: 06-21-2013 End: 07-22-2019 take 1 tablet by mouth three times daily Dicyclomine 20 MG tablet Discontinued 20 mg PO THREE TIMES A DAY 30 0 June 21, 2013 1:00am July 22, 2019 11:20am 2 ml sodium hyaluronate 10 mg/ml prefilled syringe (4 sources) Start: 11-28-2021 End: 11-28-2021 Euflexxa (sodium hyaluronate (viscosup)) Discontinued 10 MG INTRAARTIC ONCE 1 November 28, 2021 7:41am November 28, 2021 8:04am Start: 11-21-2021 End: 11-21-2021 Euflexxa (sodium hyaluronate (viscosup)) Discontinued 20 MG INTRAARTIC ONCE November 21, 2021 7:47am November 21, 2021 8:17am Start: 11-16-2021 End: 11-16-2021 Euflexxa (sodium hyaluronate (viscosup)) Discontinued 10 MG INTRAARTIC ONCE November 16, 2021 7:57am November 16, 2021 8:13am hydrocortisone acetate 30 mg rectal suppository (14 sources) Corticosteroid Start: 05-11-2021 End: 06-15-2021 Hydrocortisone Acetate 30 mg suppository Discontinued 30 mg RC TWICE A DAY 42 0 May 11, 2021 12:00am June 15, 2021 11:54am LORazepam 1 mg oral tablet (11 sources) Benzodiazepine Start: 11-02-2021 End: 12-15-2021 take 1 tablet by mouth at bedtime as needed for sleep Lorazepam (Ativan) 1 mg tablet Discontinued 1 mg PO AT BEDTIME as needed for sleep 30 0 November 02, 2021 12:00am December 15, 2021 8:54am mesalamine 400 mg delayed release oral capsule (20 sources) Aminosalicylate Start: 10-17-2021 End: 11-01-2021 Mesalamine 400 mg capsule (with del rel tablets) Discontinued NMA PO October 17, 2021 12:00am November 01, 2021 11:25am Start: 10-17-2021 End: 11-01-2021 Mesalamine Discontinued EACH PO October 16, 2021 11:00pm November 01, 2021 10:25am Start: 04-26-2021 End: 09-12-2021 take 1 capsule by mouth twice daily Mesalamine 400 mg capsule (with del rel tablets) Discontinued 0 .ROUTE .COMPLEX 60 3 July 25, 2021 2:05pm September 12, 2021 2:42pm TAKE ONE CAPSULE BY MOUTH TWO TIMES A DAY methylPREDNISolone 4 mg oral tablet (3 sources) Corticosteroid Start: 06-28-2023 End: 01-01-2024 take 1 tablet by mouth once Methylprednisolone (Medrol ([place])) 4 mg tablets,dose pack Discontinued 0 PO per package directions 21 0 June 28, 2023 1:00am January 01, 2024 1:02pm PO PER PKG DIR mirtazapine 15 mg oral tablet (20 sources) Start: 06-28-2023 End: 12-30-2024 take 1 tablet by mouth at bedtime Mirtazapine 15 mg tablet Discontinued 15 mg PO AT BEDTIME 30 3 November 25, 2024 8:30am December 30, 2024 12:57pm Start: 04-19-2022 End: 06-28-2023 take 1 tablet by mouth at bedtime Mirtazapine (Remeron) 30 mg tablet Discontinued 30 mg PO AT BEDTIME 30 3 May 07, 2023 6:05pm June 28, 2023 2:50pm Lupbtvae-Gpu-Qb-Lycopen-Lute in (Centrum Silver Ultra Men's) 300-600-300 mcg tablet (11 sources) Start: 02-18-2021 End: 03-07-2021 take 300-600 tablets by mouth once daily Enypsrlf-Llp-Ir-Lycopen-Lutein (Centrum Silver Ultra Men's) 300-600-300 mcg tablet Discontinued 1 TABLET PO DAILY February 18, 2021 3:47pm March 07, 2021 9:06am Start: 02-18-2021 End: 03-07-2021 take 300-600 tablets by mouth once daily Gopbzddu-Ojv-Xp-Lycopen-Lutein (Centrum Silver Ultra Men's) 300-600-300 mcg tablet Discontinued 1 TABLET PO DAILY February 17, 2021 11:00pm March 07, 2021 8:06am Start: 02-18-2021 End: 03-07-2021 take 300-600 tablets by mouth once daily Kewaaayh-Las-Nv-Lycopen-Lutein (Centrum Silver Ultra Men's) 300-600-300 mcg tablet Discontinued 1 TABLET PO DAILY February 18, 2021 12:00am March 07, 2021 9:06am We-Wed-Sityl-B2-Xrjkybr-Hucd in (Centrum Silver Ultra Men's) 300-600-300 mcg tablet (3 sources) Start: 02-18-2021 End: 03-07-2021 Vt-Whl-Jqiai-H6-Suwufcn-Bkmd in (Centrum Silver Ultra Men's) 300-600-300 mcg tablet Discontinued 1 {tbl} PO DAILY February 18, 2021 12:00am March 07, 2021 9:06am predniSONE 10 mg oral tablet (16 sources) Start: 12-30-2024 End: 03-31-2025 Prednisone 10 mg tablets,dos e pack Discontinued 10 mg PO As Directed December 30, 2024 12:00am March 31, 2025 1:18pm see taper instructions Start: 04-22-2021 End: 05-05-2021 take 20 mg by mouth once daily Prednisone 5 mg/mL conc entrate Discontinued 20 mg PO DAILY April 22, 2021 12:00am May 05, 2021 11:02am Start: 04-22-2021 End: 05-05-2021 take 20 mg by mouth once daily Prednisone Discontinued 20 MG PO DAILY April 21, 2021 11:00pm May 05, 2021 10:02am sertraline 50 mg oral tablet (14 sources) Serotonin Reuptake Inhibitor Start: 09-22-2021 End: 11-01-2021 take 1 tablet by mouth once daily at bedtime Sertraline 50 mg tablet Discontinued 50 mg PO DAILY 30 September 22, 2021 1:00am November 01, 2021 11:34am take at bedtime traMADol hydrochloride 50 mg oral tablet (20 sources) Opioid Agonist Start: 04-19-2022 End: 03-28-2023 take 1 tablet by mouth every eight hours as needed for pain Tramadol 50 mg tablet Discontinued 50 mg PO Q8H as needed for pain 60 0 October 24, 2022 12:07pm March 28, 2023 10:24am triamcinolone acetonide 40 mg/ml injectable suspension (7 sources) Corticosteroid Start: 06-22-2021 End: 06-22-2021 Kenalog (triamcinolone acetonide) 40 mg/mL suspension for injection Discontinued 160 MG INTRAARTIC ONCE June 22, 2021 11:39am June 22, 2021 1:55pm Start: 05-22-2019 triamcinolone acetonide (KENALOG-40) 40 mg/mL injection 20 mg . 0 05/22/2019 Active varenicline 1 mg oral tablet (9 sources) Partial Cholinergic Nicotinic Agonist Start: 04-01-2024 End: 12-30-2024 take 1 tablet by mouth twice daily Varenicline Tartrate 1 mg tablet Discontinued 1 mg PO TWICE A DAY 56 1 August 05, 2024 9:20am December 30, 2024 12:57pm Problems Active Problems Problem Classification Problem Date Documented Date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 Performed By: #### L 500.4050, L100.0100 #### [facility] [address] [place], [address] BUN/CRE 16.5 RATIO Normal 10-20 [facility] Comment on above: Performed By: #### L 500.4050, L100.0100 #### [facility] [address] [place], [address] CA,Total 9.4 mg/dL Normal 8.5-10.1 [facility] Comment on above: Performed By: #### L 500.4050, L100.0100 #### [facility] [address] [place], [address] Chloride [Moles/Vol] 105 mmol/L Normal 98-107 [facility] Comment on above: Performed By: #### L 500.4050, L100.0100 #### [facility] [address] [place], [address] CO2 [Moles/Vol] 27.0 mmol/L Normal 21.0-32.0 [facility] Comment on above: Performed By: #### L 500.4050, L100.0100 #### [facility] [address] [place], [address] Creatinine [Mass/Vol] 0.85 mg/dL Normal 0.70-1.30 [facility] Comment on above: Result Comment: The validity of the calculated GFR GFRAA in patients over 70 years has not been determined. Clinical correlation is essential. Performed By: #### L 500.4050, L100.0100 #### [facility] [address] [place], [address] EST GFR - AA 120 mL/min Normal >60 [facility] Comment on above: Result Comment: Afri can Luxem[place] GFR Calc Performed By: #### L 500.4050, L100.0100 #### [facility] [address] [place], [address] GAP 5 Normal 5-15 [facility] Comment on above: Performed By: #### L 500.4050, L100.0100 #### [facility] [address] [place], [address] GFR/1.73 sq M.predicted among non-blacks MDRD (S/P/Bld) [Vol rate/Area] 99 mL/min/{1.73_m2} Normal >60 [facility] Comment on above: Result Comment: Non- GFR Calc Performed By: #### L 500.4050, L100.0100 #### [facility] [address] [place], [address] Globulin (S) [Mass/Vol] 4.6 g/dL High 2.2-4.2 [facility] Comment on above: Performed By: #### L 500.4050, L100.0100 #### [facility] [address] [place], [address] Glucose [Mass/Vol] 95 mg/dL Normal 74-106 [facility] Comment on above: Performed By: #### L 500.4050, L100.0100 #### [facility] [address] [place], [address] Potassium [Moles/Vol] 4.1 mmol/L Normal 3.5-5.1 [facility] Comment on above: Performed By: #### L 500.4050, L100.0100 #### [facility] [address] [place], [address] Sodium [Moles/Vol] 137 mmol/L Normal 136-145 [facility] Comment on above: Performed By: #### L 500.4050, L100.0100 #### [facility] [address] [place], [address] T PROT 8.2 g/dL Normal 6.4-8.2 [facility] Comment on above: Performed By: #### L 500.4050, L100.0100 #### [facility] [address] [place], [place], [address] Urea nitrogen [Mass/Vol] 14 mg/dL Normal 7-18 [facility] Comment on above: Performed By: #### L 500.4050, L100.0100 #### [facility] [address] [place], [place], [id number] Eosinophil percentageOrdered By: Henry Blanton on 07-01-2024 Eosinophils/100 WBC (Bld) 1.1 % 0-5 [facility] Erythrocyte distribution wid th ratioOrdered By: Henryjerry Blanton on 07-01-2024 Erythrocyte distribution width (RBC) [Ratio] 12.6 % 11.6-14.6 [facility] Erythrocyte distribution wid th standard deviationOrdered By: Henryjerry Blanton on 07-01-2024 Erythrocyte distribution width (RBC) [Entitic vol] 43.7 fL 35.1-43.9 [facility] Estimated glomerular filtrat ion rate (GFR) AmericanOrdered By: Henry Blanton on 07-01-2024 Estimated GFR (MDRD) Amer 120 mL/min >60 [facility] Comment on above: GFR Calc Glomerular filtration rate ( GFR) estimationOrdered By: Henry Blanton on 07-01-2024 Estimated GFR (MDRD) Non-Af Amer 99 mL/min >60 [facility] Comment on above: Non- GFR Calc Glucose measurementOrdered B y: Henry Blanton on 07-01-2024 Glucose [Mass/Vol] 95 mg/dL 74-106 [facility] Hematocrit Auto (Bld) [Volum e fraction]Ordered By: Henry Blanton on 07-01-2024 Hematocrit (Bld) [Volume fraction] 45.7 % 40-54 [facility] Hemoglobin measurementOrdere d By: Henry Blanton on 07-01-2024 Hemoglobin (Bld) [Mass/Vol] 14.8 g/dL 13.0-16.5 [facility] Immature granulocytes/100 WB C Auto (Bld)Ordered By: Henry Blanton on 07-01-2024 Immature granulocytes/100 WBC (Bld) 0.300 % 0.0-0.9 [facility] Comment on above: IG% - Immature Granu locytes (promyelocytes, myelocytes and metamyelocytes) > 1% indicates that a LEFT SHIFT is Present. Internal Medicine Office Vis iton 07-01-2024 Internal Medicine Office Visit [facility] [address] [place] [address] [place] [address] OFFICE VISIT Date of Service: 07/01/24 MR#: [id number] Acct: [id number] Name: SARAN HARRISON Rep #: [id number] : 1970 Provider: Dr. Henry Whitman own, DO Age/Sex: 54/M Location: [facility] Status: Signed Intake Vital Signs 04/01/24 14:12 07/01/24 13:21 Height 5 ft 8 in 5 ft 8 in Weight: 206 lb 207 lb BMI 31.3 31.4 BP 122/76 H 122/80 H Blood Pressure Location Lt brachial Lt brachial Position Sitting Sitting Respiration 16 16 Pulse 85 106 H Pulse Source Monitor Monitor Temp 98 F 97.7 F L Temp Source Temporal Temporal Pulse Oximetry (%) 97 97 Oxygen Delivery Method room air room air Intake Visit Reasons: 3 M FU Chief Complaint: 3 M FU Folder And Notcher Required: No Is patient in pain?: No Allergies No Known Allergies Allergy (Verified 07/01/24 13:14) Medications ???Medication ???Instructions ???Recorded ???Confirmed ???Type acetaminophen 500 mg capsule 2,000 mg PO ONCE PRN 04/19/22 07/01/24 History mirtazapine 15 mg tablet 15 mg PO QHS #30 TABLETS 05/13/24 07/01/24 Rx varenicline tartrate 1 mg tablet 1 mg PO BID #56 TABLETS 05/27/24 07/01/24 Rx oxycodone-acetaminophen 5 mg-325 1 tab PO Q6H PRN pain 30 days #120 06/04/24 07/01/24 Rx mg tablet (Percocet) tabs cyclobenzaprine 10 mg tablet 10 mg PO TID #90 tabs 06/17/24 07/01/24 Rx oxycodone 5 mg tablet 5 mg PO Q6H PRN pain 1 month #120 07/01/24 07/01/24 Rx tabs Nurse's Note: Has general body aches and pains as he does everytime. Needs percocet refilled was wondering if he could get pain med w/o acetaminophen. [facility] Medical History Night sweats Back pain Smoker Irritable bowel syndrome with diarrhea Wears glasses Wears dentures Wears partial dentures Depression Alcohol use Marijuana use Arthritis Injury of back Migraine headache Injury of head and neck History of IBS History of Crohn's disease Difficulty swallowing Gastric reflux Former smoker Leg cramps History of pain when walking History of edema Acute Crohn's disease Chronic headaches Arthritis Chronic neck pain IBS (irritable bowel syndrome) Chronic pain DISH (diffuse idiopathic skeletal hyperostosis) Crohn's disease Carpal tunnel syndrome Surgical History H/O right knee surgery History of esophagogastroduodenosco py (EGD) H/O arthroscopic knee surgery History of colonoscopy History of tonsillectomy History of carpal tunnel release Family History Father Parkinson disease Myocardial infarction, Onset Age: 60 Melanoma CVA (cerebral vascular accident) Dementia Brother Myocardial infarction, Onset Age: 51 Hypertension Hyperlipemia Mother Thyroid disorder Other Colon cancer Social History household members: other details: son housing: house Smoking Status: Current every day smoker tobacco type: cigarettes Tobacco: How many years used: 40 alcohol intake: current alcohol intake frequency: a few times a week Alcohol type: beer substance use type: marijuana caffeine: Yes Type: coffee Number of servings: 2 what type of physical activity do you participate in: none do you feel safe at home: Yes HPI HPI Chief Complaint: 3 M FU Details: SARAN HARRISON, is a 54 M who presents to the office today for a refill on his narcotic medications that he takes because of his 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 He feels the acetaminophen is constipating and he would rather just have the oxycodone without the acetaminophen and I do not have any problem with that. I explained to him that it is most likely the oxycodone that is the constipating part of the medication but if he wants to try it is a single entity that is fine. ROS Const Constitutional: No body ache, chills, excessive sweating, fatigue, fever(s), frequent falls, headache(s), snoring, weakness, sleep problems or change in appetite Eyes Eyes: No blurry vision, change in vision, eye pain or Light sensitivity ENT ENT: No abnormal hearing, ear or mastoid pain, tinnitus, nasal congestion, headache(s), neck pain or sore throat Resp Respiratory: No cough, shortness of breath, snoring or wheezing Cardio Cardiology: No chest pain at rest, chest pain with exertion, excessive sweating, shortness of breath, dyspnea on exertion, lightheadedness, orthopnea or palpitations Gastro GI: No abdominal pain, change in bowel habits, constipation, cramping, diarrhea, nausea/dyspepsia or vomiting Genitourinary Male: No burning urination, painful urination, urinary incontin (more content not included)... Normal [facility] - Chemistry and C hemistry - challengeOrdered By: Henry Blanton on 07-01-2024 AST [Catalytic activity/Vol] 25 U/L 15-37 [facility] Lymphocytes Auto (Unsp spec) [#/Vol]Ordered By: Henry Blanton on 07-01-2024 Lymphocytes (Bld) [#/Vol] 2.22 10*3/uL 0.83-4.51 [facility] Lymphocytes/100 WBC Auto (Un sp spec)Ordered By: Henry Blanton on 07-01-2024 Lymphocytes/100 WBC (Bld) 23.4 % 19-41 [facility] MCV (mean corpuscular volume ) determinationOrdered By: Henry Blanton on 07-01-2024 MCV (RBC) [Entitic vol] 94.6 fL High 80-[address] [facility] Mean corpuscular hemoglobin (MCH) determinationOrdered By: Henry Blanton on 07-01-2024 MCH (RBC) [Entitic mass] 30.6 pg 27.0-32.0 [facility] Mean corpuscular hemoglobin concentration (MCHC) determinationOrdered By: Henry Blanton on 07-01-2024 MCHC (RBC) [Mass/Vol] 32.4 g/dL 32-36 [facility] Mean platelet volume determi nationOrdered By: Henry Blanton on 07-01-2024 Platelet mean volume (Bld) [Entitic vol] 9.8 fL 6.2-12.0 [facility] Monocyte percentageOrdered B y: Henry Blanton on 07-01-2024 Monocytes/100 WBC (Bld) 8.4 % 0-[address] [facility] Neutrophil percentageOrdered By: Henry Blanton on 07-01-2024 Neutrophils/100 WBC (Bld) 65.3 % 47-70 [facility] Nucleated red blood cell per centageOrdered By: Henry Blanton on 07-01-2024 Nucleated RBC/100 WBC (Bld) [Ratio] 0 % 0-5 [facility] Platelet countOrdered By: Do renée Blanton on 07-01-2024 Platelets (Bld) [#/Vol] 382 10*3/uL 150-450 [facility] Potassium measurementOrdered By: Henry Blanton on 07-01-2024 Potassium [Moles/Vol] 4.1 mmol/L 3.5-5.1 [facility] RBC Auto (Bld) [#/Vol]Ordere d By: Henry Blanton on 07-01-2024 RBC (Bld) [#/Vol] 4.83 10*6/uL 4.6-6.2 [facility] Serum anion gap measurementO rdered By: Henry Blanton on 07-01-2024 Anion gap [Moles/Vol] 5 mmol/L 5-15 [facility] Serum globulin measurementOr dered By: Henry Blanton on 07-01-2024 Globulin (S) [Mass/Vol] 4.6 g/dL High 2.2-4.[address] [facility] Serum or plasma alanine ramírez otransferase (ALT) measurementOrdered By: Henry Blanton on 07-01-2024 ALT [Catalytic activity/Vol] 43 U/L 16-61 [facility] Serum or plasma albumin benson urement (mass/volume)Ordered By: Henry Blanton on 07-01-2024 Albumin [Mass/Vol] 3.6 g/dL 3.2-5.0 [facility] Serum or plasma alkaline merly sphatase measurementOrdered By: Henry Blanton on 07-01-2024 ALP [Catalytic activity/Vol] 83 U/L 45-117 [facility] Serum or plasma calcium benson urement (mass/volume)Ordered By: Henry Blanton on 07-01-2024 Calcium [Mass/Vol] 9.4 mg/dL 8.5-10.1 [facility] Serum or plasma creatinine m easurement (mass/volume)Ordered By: Henry Blanton on 07-01-2024 Creatinine [Mass/Vol] 0.85 mg/dL 0.70-1.30 [facility] Comment on above: The validity of the calculated GFR & GFRAA in patients over 70 years has not been determined. Clinical correlation is essential. Serum or plasma urea nitroge n measurement (mass/volume)Ordered By: Henry Blanton on 07-01-2024 Urea nitrogen [Mass/Vol] 14 mg/dL 7-18 [facility] Sodium levelOrdered By: Александр Blanton on 07-01-2024 Sodium [Moles/Vol] 137 mmol/L 136-145 [facility] Total proteinOrdered By: Rayne Blanton on 07-01-2024 Protein [Mass/Vol] 8.2 g/dL 6.4-8.2 [facility] White blood cell (WBC) count Ordered By: Henry Blanton on 07-01-2024 WBC (Bld) [#/Vol] 9.5 10*3/uL 4.4-11.0 [facility] Internal Medicine Office Vis iton 04-01-2024 Internal Medicine Office Visit [facility] [place] [address] [place] [address] OFFICE VISIT Date of Service: 04/01/24 MR#: [id number] Acct: [id number] Name: SARAN HARRISON Rep #: [id number] : 1970 Provider: Dr. Henry Whitman own, DO Age/Sex: 53/M Location: [facility] Status: Signed Intake Vital Signs 01/01/24 13:03 04/01/24 14:12 Height 5 ft 8 in 5 ft 8 in Weight: 188 lb 206 lb BMI 28.5 31.3 BP 104/60 122/76 H Blood Pressure Location Lt brachial Lt brachial Position Sitting Sitting Respiration 18 16 Pulse 95 85 Pulse Source Monitor Monitor Temp 98.1 F 98 F Temp Source Temporal Temporal Pulse Oximetry (%) 95 97 Oxygen Delivery Method room air room air Intake Visit Reasons: 3 M FU Chief Complaint: 3 M FU Folder And Notcher Required: No Is patient in pain?: No Allergies No Known Allergies Allergy (Verified 01/01/24 12:59) Medications ???Medication ???Instructions ???Recorded ???Confirmed ???Type acetaminophen 500 mg capsule 2,000 mg PO ONCE PRN 04/19/22 04/01/24 History mirtazapine 15 mg tablet 15 mg PO QHS #30 tabs 01/01/24 04/01/24 Rx oxycodone-acetaminophen 5 mg-325 1 tab PO Q6H PRN pain 30 days #120 03/05/24 04/01/24 Rx mg tablet (Percocet) tabs cyclobenzaprine 10 mg tablet 10 mg PO TID #90 tabs 04/01/24 04/01/24 Rx varenicline 1 mg tablet (Chantix) 1 mg PO BID #56 tabs 04/01/24 04/01/24 Rx Nurse's Note: Needs a refill on Percocet. States that baclofen sucks, he is still having muscle spasms and stiffness he can't sleep throughout the night due to it. [facility] Medical History Night sweats Back pain Smoker Irritable bowel syndrome with diarrhea Wears glasses Wears dentures Wears partial dentures Depression Alcohol use Marijuana use Arthritis Injury of back Migraine headache Injury of head and neck History of IBS History of Crohn's disease Difficulty swallowing Gastric reflux Former smoker Leg cramps History of pain when walking History of edema Acute Crohn's disease Chronic headaches Arthritis Chronic neck pain IBS (irritable bowel syndrome) Chronic pain DISH (diffuse idiopathic skeletal hyperostosis) Crohn's disease Carpal tunnel syndrome Surgical History H/O right knee surgery History of esophagogastroduodenosco py (EGD) H/O arthroscopic knee surgery History of colonoscopy History of tonsillectomy History of carpal tunnel release Family History Father Parkinson disease Myocardial infarction, Onset Age: 60 Melanoma CVA (cerebral vascular accident) Dementia Brother Myocardial infarction, Onset Age: 51 Hypertension Hyperlipemia Mother Thyroid disorder Other Colon cancer Social History household members: other details: son housing: house Smoking Status: Current every day smoker tobacco type: cigarettes Tobacco: How many years used: 40 alcohol intake: current alcohol intake frequency: a few times a week Alcohol type: beer substance use type: marijuana caffeine: Yes Type: coffee Number of servings: 2 what type of physical activity do you participate in: none do you feel safe at home: Yes HPI HPI Chief Complaint: 3 M FU Details: SARAN HARRISON, is a 53 M who presents to the office today for renewal of his medications. He is having difficulties with muscle spasms and he feels the current muscle relaxant is not working at all. He also wants to stop smoking even though he has been smoking for 40 years. His pain pattern remains about the same, he complains of a sciatic type of pain but I cannot reproduce that. ROS Const Constitutional: No body ache, chills, excessive sweating, fatigue, fever(s), frequent falls, headache(s), snoring, weakness, sleep problems or change in appetite Eyes Eyes: No blurry vision, change in vision, eye pain or Light sensitivity ENT ENT: No abnormal hearing, ear or mastoid pain, tinnitus, nasal congestion, headache(s), neck pain or sore throat Resp Respiratory: No cough, shortness of breath, snoring or wheezing Cardio Cardiology: No chest pain at rest, chest pain with exertion, excessive sweating, shortness of breath, dyspnea on exertion, lightheadedness, orthopnea or palpitations Gastro GI: No abdominal pain, change in bowel habits, constipation, cramping, diarrhea, nausea/dyspepsia or vomiting Genitourinary Male: No burning urination, painful urination, urinary incontinence or urinary frequency Musc Musculoskeletal: No abnormal gait, joint pain, back pain, limited range of motion, neck pain or numbness Skin Skin: No dry skin, redness, lesions, itchy eyes, (more content not included)... Normal [facility] No Panel InformationOrdered By: Carole Ventura on 07-19-2022 Hepatitis A IgM Antibody Negative Negative [facility] Hepatitis B Core IgM Antibody Negative Negative [facility] Hepatitis C Antibody (EIA) <0.1 s/co ratio 0.0-0.9 [facility] Hepatitis C Antibody Comment Comment . [facility] Comment on above: NegativeNot infected with HCV, unless recent infection issuspected or other evidence exists to indicate HCVinfection. Rubella IgG Antibody Reactive Nonreactive [facility] Comment on above: Antibody Results Int erpretation of Immune Status Non Reactive Presumed Non-Immune Equivocal Equivocal Reactive Presumed Immune Qualitative QuantiFERON-TB g old in tube testOrdered By: Carole Ventura on 07-19-2022 M. tuberculosis tuberculin stim IFN-g Ql (Bld) 0.13 IU/mL . [facility] Serum Varicella zoster virus IgG antibody assay by immunoassay (units/volume)Ordered By: Carole Ventura on 07-19-2022 VZV IgG IA Qn (S) 5 index Immune >165 [facility] Comment on above: Negative <135 Equivo mikaela 135 - 165 Positive >165A positive result generally indicates exposure to thepathogen or administration of specific immunoglobulins,but it is not indication of active infection or stageof disease. Serum hepatitis B virus surf raegan antibody IgG detectionOrdered By: Carole Ventura on 07-19-2022 HBV surface IgG Ql (S) Non-Reactive [facility] Comment on above: Non Reactive: Incons istent with immunity less than <10 mIU/mL Reactive: Consistent with immunity greater than or equal to 10 mIU/mL Serum measles virus IgG anti body assay by immunoassay (units/volume)Ordered By: Carole Ventura on 07-19-2022 MeV IgG IA Qn (S) 216.0 AU/mL Immune >16.4 [facility] Comment on above: Negative <13.5 Equiv ocal 13.5 - 16.4 Positive >16.4Presence of antibodies to Rubeola is presumptive evidenceof immunity except when acute infection is suspected.Performed at: [facility] [id number] Director: Darrin Rogers PhD, Phone: [phone] Serum mumps virus IgG antibo dy assay (units/volume)Ordered By: Carole Ventura on 07-19-2022 MuV IgG Qn (S) 88.5 AU/mL Immune >10.9 [facility] Comment on above: Negative <9.0 Equivo mikaela 9.0 - 10.9 Positive >10.9A positive result generally indicates past exposure toMumps virus or previous vaccination. Serum or plasma hepatitis B virus surface antigen detection by immunoassayOrdered By: Carole Ventura on 07-19-2022 HBV surface Ag IA Ql Negative Negative [facility] Thin prep Papanicolaou smear with manual screeningOrdered By: Carole Ventura on 07-19-2022 Thin prep Papanicolaou smear with manual screening Comment . [facility] Comment on above: QuantiFERON-TB Gold Plus is a qualitative indirect test forM tuberculosis infection (including disease) and isintended for use in conjunction with risk assessment,radiography, and other medical and diagnostic evaluations.The QuantiFERON-TB Gold Plus result is determined bysubtracting the Nil value from either TB antigen (Ag)value. The Mitogen tube serves as a control for the test. Thin prep Papanicolaou smear with manual screening 0.17 IU/mL . [facility] Thin prep Papanicolaou smear with manual screening 0.05 IU/mL . [facility] Thin prep Papanicolaou smear with manual screening > 10.00 IU/mL . [facility] Thin prep Papanicolaou smear with manual screening Negative Negative [facility] Comment on above: No response to M tub erculosis antigens detected.Infection with M tuberculosis is unlikely, but high riskindividuals should be considered for additional testing(ATS/IDSA/CDC Clinical Practice Guidelines, 2017). Thereference range is an Antigen minus Nil result of <0.35IU/mL.The specimen received for QuantiFERON testing was incubatedby the ordering institution. Specific procedures outlinedin our Directory of Services and in the package insert forthe QuantiFERON Gold (In Tube) test must be followed toenable for proper stimulation of cells for the productionof interferon gamma. Chemiluminescence immunoassaymethodology No Panel InformationOrdered By: Carole Ventura on 07-11-2022 Miscellaneous Test See comment [facility] Comment on above: TEST RESULT LIMITSIB D Expanded Panel Cristina 70 High units 0-50 Negative <45 Equivocal 45 - 50 Positive >50 ACCA 86 units 0-90 Negative <80 Equivocal 80 - 90 Positive >90 ALCA 80 High units 0-60 Negative <55 Equivocal 55 - 60 Positive >60 AMCA 81 units 0-100 Negative < 90 Equivocal 90 - 100 Positive >100 This test was developed and its performance characteristics determined by [facility]. It has not been cleared or approved by the Food and Drug Administration. The FDA has determined that such clearance or approval is not necessary.Atypical pANCA Negative Negative Comments Abnormal Suggestive of Crohn's Disease with high risk of aggressive disease behavior (development of strictures or fistulae) ____ TESTING PERFORMED AT [facility]. ORIGINAL REPORT ON FILE IN LAB CONTAINS ADDITIONAL TEST SITE INFORMATION. Absolute lymphocyte countOrd ered By: Glynn Young on 05-17-2022 Lymphocytes Auto (Unsp spec) [#/Vol] 2.17 10*3/uL 0.83-4.51 [facility] Atypical perinuclear antineu trophil cytoplasmic antibodies measurementOrdered By: Glynn Young on 05-17-2022 Neutrophil cytoplasmic Ab.perinuclear.atypical IF (S) [Titer] <1:20 titer Neg:<1:20 [facility] Comment on above: The atypical pANCA p attern has been observed in asignificant percentage of patients with ulcerative colitis,primary sclerosing cholangitis and autoimmune hepatitis.Performed at: [address] [id number] Director: Darirn Rogers PhD, Phone: [phone] at: [address] [id number] Director: Jessica Garcia MD, Phone: [phone] Basophil percentageOrdered B y: Glynn Young on 05-17-2022 Basophil percentage < 0.2 AI 0.0-0.9 [facility] Basophils/100 WBC (Bld) 1.6 % 0-1 [facility] Bilirubin [Mass/Vol] 0.20 mg/dL 0.20-1.00 [facility] Comment on above: For patients on eltr ombopag therapy, use of Dimension [place]wood TBIL is not recommended. Chloride [Moles/Vol] 106 mmol/L 98-107 [facility] Eosinophils/100 WBC (Bld) 1.7 % 0-5 [facility] Glucose [Mass/Vol] 101 mg/dL 74-106 [facility] Comment on above: Fasting Glucose resu lt from 100 to 125 mg/dL suggests IMPAIRED HOMEOSTASIS per A.D.A. criteria. Neutrophils (Bld) [#/Vol] 4.1 10*3/uL 2.0-7.7 [facility] Neutrophils/100 WBC (Bld) 57.5 % 47-70 [facility] Potassium [Moles/Vol] 3.8 mmol/L 3.5-5.1 [facility] Protein [Mass/Vol] 8.1 g/dL 6.4-8.2 [facility] Sodium [Moles/Vol] 138 mmol/L 136-145 [facility] WBC (Bld) [#/Vol] 7.1 10*3/uL 4.4-11.0 [facility] Blood erythrocytes count (nu mber/volume)Ordered By: Glynn Young on 05-17-2022 RBC (Bld) [#/Vol] 4.89 10*6/uL 4.6-6.2 [facility] Blood hemoglobin measurement (mass/volume)Ordered By: Glynn Young on 05-17-2022 Hemoglobin (Bld) [Mass/Vol] 16.0 g/dL 13.0-16.5 [facility] Blood lymphocytes/100 leukoc ytesOrdered By: Glynn Young on 05-17-2022 Lymphocytes/100 WBC (Bld) 30.7 % 19-41 [facility] Blood monocytes/100 leukocyt esOrdered By: Glynn Young on 05-17-2022 Monocytes/100 WBC (Bld) 8.1 % 0-10 [facility] Blood platelet mean volumeOr dered By: Glynn Young on 05-17-2022 Platelet mean volume (Bld) [Entitic vol] 10.0 fL 6.2-12.0 [facility] Determination of erythrocyte mean corpuscular volume (MCV)Ordered By: Glynn Young on 05-17-2022 MCV (RBC) [Entitic vol] 96.9 fL 80-[address] [facility] Erythrocyte sedimentation ra teOrdered By: Glynn Young on 05-17-2022 ESR (Bld) [Velocity] 27 mm/h 0-20 [facility] Hematocrit Auto (Bld) [Volum e fraction]Ordered By: Glynn Young on 05-17-2022 Hematocrit (Bld) [Volume fraction] 47.4 % 40-54 [facility] Interpretation of serum or p lasma protein pattern by immunofixation (narrative resultOrdered By: Glynn Young on 05-17-2022 Protein Fractions Immunofixation Georgi [Interp] See comment [facility] Comment on above: Result: Not Observed Laboratory - Chemistry and C hemistry - challengeOrdered By: Glynn Young on 05-17-2022 ALP [Catalytic activity/Vol] 76 U/L 45-117 [facility] ALT [Catalytic activity/Vol] 20 U/L 16-61 [facility] CO2 [Moles/Vol] 30.0 mmol/L 21.0-32.0 [facility] Urea nitrogen/Creatinine [Mass ratio] 14.4 mg/mg 10-20 [facility] Laboratory - Chemistry and C hemistry - challengeon 05-17-2022 Globulin (S) [Mass/Vol] 4.4 g/dL 2.2-4.[address] [facility] Work Phone: Laboratory - Hematology and Cell countsOrdered By: Glnyn Young on 05-17-2022 Erythrocyte distribution width (RBC) [Entitic vol] 48.7 fL 35.1-43.9 [facility] Erythrocyte distribution width (RBC) [Ratio] 13.5 % 11.6-14.6 [facility] Immature granulocytes/100 WBC (Bld) 0.400 % 0.0-0.9 [facility] Comment on above: IG% - Immature Granu locytes (promyelocytes, myelocytes and metamyelocytes) > 1% indicates that a LEFT SHIFT is Present. MCH (RBC) [Entitic mass] 32.7 pg 27.0-32.0 [facility] Nucleated RBC/100 WBC (Bld) [Ratio] 0 % 0-5 [facility] MCHC Auto (RBC) [Mass/Vol]Or dered By: Glynn Young on 05-17-2022 MCHC (RBC) [Mass/Vol] 33.8 g/dL 32-36 [facility] No Panel InformationOrdered By: Glynn Young on 05-17-2022 Addendum Document Comment . [facility] Comment on above: Protein electrophore sis scan will follow via computer,mail, or joint finisher delivery. Centromere B Antibody <0.2 AI 0.0-0.9 [facility] Endomysial IgA Antibody Negative Negative [facility] Estimated GFR (MDRD) Amer 123 mL/min >60 [facility] Comment on above: GFR Calc Estimated GFR (MDRD) Non-Af Amer 102 mL/min >60 [facility] Comment on above: Non- GFR Calc Immunoglobulin E 128 IU/mL 6-495 [facility] [employer] Antibody 0.2 AI 0.0-0.9 [facility] Platelets bldOrdered By: Elias Young on 05-17-2022 Platelets (Bld) [#/Vol] 274 10*3/uL 150-450 [facility] Serum DNA double strand anti body assay (units/volume)Ordered By: Glynn Young on 05-17-2022 DNA double strand Ab Qn (S) [IU]/mL 0-9 [facility] Comment on above: Negative <5 Equivoca l 5 - 9 Positive >9 Serum IgA measurement (units /volume)on 05-17-2022 IgA Qn (S) 430 mg/dL 90-386 [facility] Work Phone: Comment on above: Performed at: [address] [id number] Director: Darrin Rogers PhD, Phone: [phone] Serum Briana-1 antibody assay (u nits/volume)Ordered By: Glynn Young on 05-17-2022 Briana-1 extractable nuclear Ab Qn (S) <0.2 AI 0.0-0.9 [facility] Serum Scl-70 extractable nuc lear antibody assay (units/volume)Ordered By: Glynn Young on 05-17-2022 SCL-70 extractable nuclear Ab Qn (S) <0.2 AI 0.0-0.9 [facility] Serum Flores extractable nucl ear antibody detectionOrdered By: Glynn Young on 05-17-2022 Flores extractable nuclear Ab Ql (S) <0.2 AI 0.0-0.9 [facility] Serum [id number] measu rement by electrophoresisOrdered By: Glynn Young on 05-17-2022 Alpha 1 globulin Elph [Mass/Vol] 0.4 g/dL 0.0-0.4 [facility] Alpha 1 globulin Elph [Mass/Vol] 1.0 g/dL 0.4-1.0 [facility] Serum classic neutrophil cyt oplasmic antibody assay (units/volume)Ordered By: Glynn Young on 05-17-2022 Neutrophil cytoplasmic Ab.classic Qn (S) <1:20 titer Neg:<1:20 [facility] Serum globulin measurement ( mass/volume)Ordered By: Glynn Young on 05-17-2022 Globulin (S) [Mass/Vol] 3.8 g/dL 2.2-3.[address] [facility] Serum or plasma C reactive p rotein measurement (mass/volume)Ordered By: Glynn Young on 05-17-2022 CRP [Mass/Vol] 6.98 mg/L 0.0-3.0 [facility] Comment on above: C-Reactive Protein ( CRP) provides useful information for thediagnosis, therapy and monitoring of inflammatory processesand associated diseases. For the evaluation of Relative Riskfor Cardiovascular Disease, a High Sensitivity CRP (HSCRP)should be ordered. Serum or plasma IgA measurem ent (mass/volume)Ordered By: Glynn Young on 05-17-2022 IgA [Mass/Vol] 433 mg/dL 90-386 [facility] Serum or plasma IgG measurem ent (mass/volume)Ordered By: Glynn Young on 05-17-2022 IgG [Mass/Vol] 1138 mg/dL 603-1613 [facility] Serum or plasma IgM measurem ent (mass/volume)Ordered By: Glynn Young on 05-17-2022 IgM [Mass/Vol] 62 mg/dL 20-172 [facility] Serum or plasma albumin benson urement (mass/volume)Ordered By: Glynn Young on 05-17-2022 Albumin [Mass/Vol] 3.7 g/dL 2.9-4.4 [facility] Serum or plasma albumin/glob ulin mass ratioOrdered By: Glynn Young on 05-17-2022 Albumin/Globulin [Mass ratio] 0.8 {ratio} 0.9-2.4 [facility] Serum or plasma beta globuli n measurement by electrophoresis (mass/volume)Ordered By: Glynn Young on 05-17-2022 Beta globulin Elph [Mass/Vol] 1.2 g/dL 0.7-1.3 [facility] Serum or plasma calcium benson urement (mass/volume)Ordered By: Glynn Young on 05-17-2022 Calcium [Mass/Vol] 9.3 mg/dL 8.5-10.1 [facility] Serum or plasma creatinine m easurement (mass/volume)Ordered By: Glynn Young on 05-17-2022 Creatinine [Mass/Vol] 0.84 mg/dL 0.70-1.30 [facility] Comment on above: The validity of the calculated GFR & GFRAA in patients over 70 years has not been determined. Clinical correlation is essential. Serum or plasma gamma globul in measurement by electrophoresis (mass/volume)Ordered By: Glynn Young on 05-17-2022 Gamma globulin Elph [Mass/Vol] 1.2 g/dL 0.4-1.8 [facility] Serum or plasma immunoelectr ophoresis interpretation (nominal result)Ordered By: Glynn Young on 05-17-2022 Interpretation IEP [Interp] Comment . [facility] Comment on above: No monoclonality det ected. Serum or plasma urea nitroge n measurement (mass/volume)Ordered By: Glynn Young on 11-02-2022 Urea nitrogen [Mass/Vol] 12 mg/dL 7-18 [facility] Serum perinuclear neutrophil cytoplasmic antibody titer by immunofluorescenceOrdered By: Glynn Young on 05-17-2022 Neutrophil cytoplasmic Ab.perinuclear IF (S) [Titer] <1:20 titer Neg:<1:20 [facility] Comment on above: The presence of posi tive fluorescence exhibiting P-ANCA orC-ANCA patterns alone is not specific for the diagnosis ofWegener's Granulomatosis (WG) or microscopic polyangiitis.Decisions about treatment should not be based solely onANCA IFA results. The International ANCA Group Consensusrecommends follow up testing of positive sera with both IL-3 and MPO-ANCA enzyme immunoassays. As many as 5% serumsamples are positive only by EIA. Ref. AM J Clin [id number];111:507-513. Serum tissue transglutaminas e IgA antibody assay (units/volume)Ordered By: Glynn Young on 05-17-2022 tTG IgA Qn (S) <2 U/mL 0-3 [facility] Comment on above: Negative 0 - 3 Weak Positive 4 - 10 Positive >10 Tissue Transglutaminase (tTG) has been identified as the endomysial antigen. Studies have demonstr- ated that endomysial IgA antibodies have over 99% specificity for gluten sensitive enteropathy. Thin prep Papanicolaou smear with manual screeningOrdered By: Glynn Young on 05-17-2022 Thin prep Papanicolaou smear with manual screening 21 U/L 15-37 [facility] Thin prep Papanicolaou smear with manual screening 2 5-15 [facility] Thin prep Papanicolaou smear with manual screening 205 U/L 87-241 [facility] Thin prep Papanicolaou smear with manual screening 1.0 0.7-1.7 [facility] Total protein bloodOrdered B y: Glynn Young on 05-17-2022 Protein [Mass/Vol] 7.5 g/dL 6.0-8.5 [facility] Albumin Elph [Mass/Vol]Order ed By: Glynn Young on 04-12-2022 Albumin [Mass/Vol] 4.2 g/dL 2.9-4.4 [facility] Atypical perinuclear antineu trophil cytoplasmic antibodies measurementOrdered By: Glynn Young on 04-12-2022 Neutrophil cytoplasmic Ab.perinuclear.atypical IF (S) [Titer] <1:20 titer Neg:<1:20 [facility] Comment on above: The atypical pANCA p attern has been observed in asignificant percentage of patients with ulcerative colitis,primary sclerosing cholangitis and autoimmune hepatitis. Basophil percentageOrdered B y: Glynn Young on 04-12-2022 Basophil percentage < 0.2 AI 0.0-0.9 [facility] Erythrocyte sedimentation ra teOrdered By: Glynn Young on 04-12-2022 ESR (Bld) [Velocity] 16 mm/h 0-20 [facility] Interpretation of Borrelia b urgdorferi antibody assayOrdered By: Glynn Young on 04-12-2022 B. burgdorferi Ab (S) [Interp] REF LAB [facility] Interpretation of serum or p lasma protein pattern by immunofixation (narrative resultOrdered By: Glynn Young on 04-12-2022 Protein Fractions Immunofixation Georgi [Interp] See comment [facility] Comment on above: Result: Not Observed Laboratory - Chemistry and C hemistry - challengeOrdered By: Glynn Young on 04-12-2022 CK [Catalytic activity/Vol] 42 U/L 39-308 [facility] No Panel InformationOrdered By: Glynn Young on 04-12-2022 Addendum Document Comment . [facility] Comment on above: Protein electrophore sis scan will follow via computer,mail, or joint finisher delivery. Centromere B Antibody <0.2 AI 0.0-0.9 [facility] Endomysial IgA Antibody Negative Negative [facility] Immunoglobulin E 133 IU/mL 6-495 [facility] Comment on above: Performed at: [facility] Tiffanie garsia [address] [id number] Director: Darrin Rogers PhD, Phone: [phone] at: [facility] [id number] Director: Jessica Garcia MD, Phone: [phone] Parathyroid Hormone (Intact) 35.9 pg/mL 18.4-80.1 [facility] [employer] SUPERVISOR Antibody 0.3 AI 0.0-0.9 [facility] Serum DNA double strand anti body assay (units/volume)Ordered By: Glynn Young on 04-12-2022 DNA double strand Ab Qn (S) [IU]/mL 0-9 [facility] Comment on above: Negative <5 Equivoca l 5 - 9 Positive >9 Serum IgA measurement (units /volume)on 04-12-2022 IgA Qn (S) 430 mg/dL 90-386 [facility] Work Phone: Comment on above: Performed at: [facility] [email or web address] [id number] Director: Darrin Rogers PhD, Phone: [phone] Serum Briana-1 antibody assay (u nits/volume)Ordered By: Glynn Young on 04-12-2022 Briana-1 extractable nuclear Ab Qn (S) <0.2 AI 0.0-0.9 [facility] Serum Scl-70 extractable nuc lear antibody assay (units/volume)Ordered By: Glynn Young on 04-12-2022 SCL-70 extractable nuclear Ab Qn (S) <0.2 AI 0.0-0.9 [facility] Serum Flores extractable nucl ear antibody detectionOrdered By: Glynn Young on 04-12-2022 Flores extractable nuclear Ab Ql (S) <0.2 AI 0.0-0.9 [facility] Serum [id number] measu rement by electrophoresisOrdered By: Glynn Young on 04-12-2022 Alpha 1 globulin Elph [Mass/Vol] 0.3 g/dL 0.0-0.4 [facility] Alpha 1 globulin Elph [Mass/Vol] 1.0 g/dL 0.4-1.0 [facility] Serum classic neutrophil cyt oplasmic antibody assay (units/volume)Ordered By: Glynn Young on 04-12-2022 Neutrophil cytoplasmic Ab.classic Qn (S) <1:20 titer Neg:<1:20 [facility] Serum globulin measurement ( mass/volume)Ordered By: Glynn Young on 04-12-2022 Globulin (S) [Mass/Vol] 3.8 g/dL 2.2-3.[address] [facility] Serum or plasma C reactive p rotein measurement (mass/volume)Ordered By: Glynn Young on 04-12-2022 CRP [Mass/Vol] 4.09 mg/L 0.0-3.0 [facility] Comment on above: C-Reactive Protein ( CRP) provides useful information for thediagnosis, therapy and monitoring of inflammatory processesand associated diseases. For the evaluation of Relative Riskfor Cardiovascular Disease, a High Sensitivity CRP (HSCRP)should be ordered. Serum or plasma IgA measurem ent (mass/volume)Ordered By: Glynn Young on 04-12-2022 IgA [Mass/Vol] 443 mg/dL 90-386 [facility] Serum or plasma IgG measurem ent (mass/volume)Ordered By: Glynn Young on 04-12-2022 IgG [Mass/Vol] 1145 mg/dL 603-1613 [facility] Serum or plasma IgM measurem ent (mass/volume)Ordered By: Glynn Young on 04-12-2022 IgM [Mass/Vol] 69 mg/dL 20-172 [facility] Serum or plasma beta globuli n measurement by electrophoresis (mass/volume)Ordered By: Glynn Young on 04-12-2022 Beta globulin Elph [Mass/Vol] 1.2 g/dL 0.7-1.3 [facility] Serum or plasma gamma globul in measurement by electrophoresis (mass/volume)Ordered By: Glynn Young on 04-12-2022 Gamma globulin Elph [Mass/Vol] 1.2 g/dL 0.4-1.8 [facility] Serum or plasma immunoelectr ophoresis interpretation (nominal result)Ordered By: Glynn Young on 04-12-2022 Interpretation IEP [Interp] Comment . [facility] Comment on above: No monoclonality det ected. Serum perinuclear neutrophil cytoplasmic antibody titer by immunofluorescenceOrdered By: Glynn Young on 04-12-2022 Neutrophil cytoplasmic Ab.perinuclear IF (S) [Titer] <1:20 titer Neg:<1:20 [facility] Comment on above: The presence of posi tive fluorescence exhibiting P-ANCA orC-ANCA patterns alone is not specific for the diagnosis ofWegener's Granulomatosis (WG) or microscopic polyangiitis.Decisions about treatment should not be based solely onANCA IFA results. The International ANCA Group Consensusrecommends follow up testing of positive sera with both IL-3 and MPO-ANCA enzyme immunoassays. As many as 5% serumsamples are positive only by EIA. Ref. AM J Clin [id number];111:507-513. Serum tissue transglutaminas e IgA antibody assay (units/volume)Ordered By: Glynn Young on 04-12-2022 tTG IgA Qn (S) 3 U/mL 0-3 [facility] Comment on above: Negative 0 - 3 Weak Positive 4 - 10 Positive >10 Tissue Transglutaminase (tTG) has been identified as the endomysial antigen. Studies have demonstr- ated that endomysial IgA antibodies have over 99% specificity for gluten sensitive enteropathy. Thin prep Papanicolaou smear with manual screeningOrdered By: Glynn Young on 04-12-2022 Thin prep Papanicolaou smear with manual screening 165 U/L 87-241 [facility] Thin prep Papanicolaou smear with manual screening 1.2 0.7-1.7 [facility] Thin prep Papanicolaou smear with manual screening Negative Negative [facility] Comment on above: Lyme Antibody Negati veNo laboratory evidence of infection with B. burgdorferi(Lyme disease). Negative results may occur in patientsrecently infected (less than or equal to 14 days) with B.burgdorferi. If recent infection is suspected, repeattesting on a new sample collected in 7 to 14 days isrecommended. Total protein bloodOrdered B y: Glynn Young on 04-12-2022 Protein [Mass/Vol] 8.0 g/dL 6.0-8.5 [facility] Whole blood hemoglobin A1c/t otal hemoglobin ratio (mass fraction)Ordered By: Glynn Young on 04-12-2022 HbA1c (Bld) [Mass fraction] 5.0 % 3.8-5.6 [facility] Comment on above: Normal < 5.7 % Predi abetic 5.7 - 6.4 % Diabetic >or= 6.5 % Please note range changes. Therapy Communicationon 0 Therapy Communication Message SARAN HARRISON was (D/C)- last seen: 11/07/2021. Pt was last seen in PT on 11/07/2021 and his POC is . Pt is DC'd at this time. Signatures Electronically signed by : Chris Hartley, PT; Mar 16 2022 11:15AM EST (Author) Normal [facility] PT Progress Noteon PT Progress Note Therapy Diagnosis Assessed Shoulder pain, bilateral (719.41) (M25.511,M25.512) Plan Goals: Goals set and discussed today. 1. Independent HEP to allow for 50% reduction in max ADL C/C sx ( 03/25) 2-3wks 2. 0/10 night time sx to allow for uninterrupted sleep x1wk ( 01/19) 2-3wks 3. Survey score improvement from 56% to 40% (QDI) 3-4wks 4. ROM increase to allow for improved ADL reaching, dressing uppers (from 5. Strength increase to allow for improved ADL carrying, object handling (from, goal partially met Planned interventions include: cryotherapy, education/instruction, electrical stimulation, home program, hot pack, kinesiotaping, manual therapy, self care/home management and therapeutic exercises. Frequency and duration: 2 time(s) a week, for 6 weeks, for 12 visits. Potential to achieve rehab goals is fair: chronic syndrome One final visit with [employer] to update/finalize HEP with addition of thoracic/scapular mobility and lower/mid trap retraining exercises to improve posterior chain stability to improve with use of UE for ADL's AND IADL's. Progress with POC, as tolerated. Assessment Patient identified by name and date of . Patient demonstrated good tolerance to additional ROM and strengthening exercises. Reviewed HEP and provided additional handouts via email and text this date. He demonstrated good understanding. Adult Risk Screening There are no spiritual/cultural practices/values/needs that are important to know Initial Fall Risk Screening: SARAN has fallen in the last 6 months. He has fallen due to trip and fall. His fall did not result in injury. SARAN does not have a fear of falling. He does not need assistance with sitting, standing or walking. Does not need assistance walking in his home. He does not need assistance in an unfamiliar setting. The patient is not using an assistive device. Fall Risk Screening: Patient is identified as a fall risk. Care Plan: Low Risk: Environmental for all patients and low risk patients: Offer assistance as needed or requested, keep environment free of obstacles, keep floor clean and dry, keep room lighting, wheelchair brakes on, bed/ stretcher locked and in low position if applicable, non-slip footwear if applicable, walker/cane available if needed, side rails up if applicable and pre-emptive toileting. Please identify location of pain: R shldr and scap. Pain Quality: aching and sharp. Insurance Insurance reviewed Visit number: 11 Approved number of visits: 12 additional Authorization date range: 12/23/21-02/10/22 [employer] Evaluating therapist Viktor Espinoza PT. The physical therapist of record is the therapist who assumes primary responsibility for patient management and as such is held accountable for the coordination, continuation and progression of the POC. This patient?s care and PT of record will be transferred from Viktor Espinoza PT to [facility] DPT effective as of M25.511; low fall risk Subjective Patient reports:. Patient reported 3-4/10 pain after treatment. Home program performing as directed: Yes. Precautions: Fall Risk: low Pertinent medical HX includes: cerv spondylosis; B sciatica; L knee scope 1987. Treatment Time in clinic started at 09:05 Time in clinic ended at 10:55 Total time in clinic is 50 minutes. Total timed code time is 48 minutes. Therapeutic exercise (43741): timed minutes 48, units 3 . UBE no resistance 2? fwd 1? bwd rakan scaption 3' flex 3' Ball on Wall 2 x10 ea directions lat,flex/ext, CW,CCW 2# (N) Lower Trap Lift off x10 (N) Thoracic Rotation x10 (N) Thoracic Ext 2 x 10 (N) Seated flexion with SB ball x10 (N) Open book x10 5? hold ea side (N) B ER seated x10 5? hold (N) T-band walk outs x10 2 steps (N) -ER, IR,Flex, ext Wall slide flex AND Scap 4 x 10 I?s and T?s at wall x10 3? Delt and lat raises 0# 2 x 10 D/C to HEP: Standing R shldr rizwana 10 x5? count ea (flex/abd/ext/ER/IR) D/C SB on plinth flex/ext, lateral, CW, CCW 3 x10 D/C Standing shoulder rolls bwd/fwd 2 D/C to HEP Seated scap retraction 2 x 10 (X) Finger ladder x 5 to #39 but has pain at #28 . Manual Therapy (71370): units . NOt this date; PROM all planes table slightly elevated STW to tricep/bicep (X) STW to R UT, LS, Scalenes, SCM, Posterior scap musculature (N). Provided today:. [id number]. 'Scores and Scales' Signatures Electronically signed by : Joan Mann, [employer]; Feb 01 2022 5:10PM EST (Author) Electronically signed by : Laurie Tapia, PT; Feb 09 2022 5:24PM EST [facility] PT Progress Noteon 2 PT Progress Note Therapy Diagnosis Assessed Shoulder pain, bilateral (719.41) (M25.511,M25.512) Plan Goals: Goals set and discussed today. 1. Independent HEP to allow for 50% reduction in max ADL C/C sx ( 9/10) 2-3wks 2. 0/10 night time sx to allow for uninterrupted sleep x1wk ( 01/19) 2-3wks 3. Survey score improvement from 56% to 40% (QDI) 3-4wks 4. ROM increase to allow for improved ADL reaching, dressing uppers (from 5. Strength increase to allow for improved ADL carrying, object handling (from, goal partially met Planned interventions include: cryotherapy, education/instruction, electrical stimulation, home program, hot pack, kinesiotaping, manual therapy, self care/home management and therapeutic exercises. Frequency and duration: 2 time(s) a week, for 6 weeks, for 12 visits. Potential to achieve rehab goals is fair: chronic syndrome One final visit with [employer] to update/finalize HEP with addition of thoracic/scapular mobility and lower/mid trap retraining exercises to improve posterior chain stability to improve with use of UE for ADL's AND IADL's. Progress with POC, as tolerated. Assessment Patient identified by name and date of . Pt reassessed this date by supervising PT with improvements noted in Right shoulder AROM as well as PROM compared to eval. He demonstrates improved MMT in RUE but due to chronic spine issues as well as significant kyphosis in thoracic spine, pt has difficulty with proper motor control with posterior/inferior scap musculature. He responded well to time focused on STW this date due to presentation of increased myofascial restriction with improved tissue mobility after session. Pt reports good understanding for all edu provided this date and will have one final visit with [employer] to finalize hep due to no time this date. He has maintained good attendance with visits and good compliance with HEP making good progress/meeting most if not all PT goals. Response to treatment: no change in pain. Adult Risk Screening There are no spiritual/cultural practices/values/needs that are important to know Initial Fall Risk Screening: SARAN has fallen in the last 6 months. He has fallen due to trip and fall. His fall did not result in injury. SARAN does not have a fear of falling. He does not need assistance with sitting, standing or walking. Does not need assistance walking in his home. He does not need assistance in an unfamiliar setting. The patient is not using an assistive device. Fall Risk Screening: Patient is identified as a fall risk. Care Plan: Low Risk: Environmental for all patients and low risk patients: Offer assistance as needed or requested, keep environment free of obstacles, keep floor clean and dry, keep room lighting, wheelchair brakes on, bed/ stretcher locked and in low position if applicable, non-slip footwear if applicable, walker/cane available if needed, side rails up if applicable and pre-emptive toileting. Pain Scale: On a scale of 0 to 10, the patient rates the pain at 5. Please identify location of pain: R shldr and scap. Pain Quality: aching and sharp. Insurance Insurance reviewed Visit number: 10 Approved number of visits: 12 additional Authorization date range: 12/23/21-02/10/22 [facility] Evaluating therapist Viktor Espinoza PT. The physical therapist of record is the therapist who assumes primary responsibility for patient management and as such is held accountable for the coordination, continuation and progression of the POC. This patient?s care and PT of record will be transferred from Viktor Espinoza PT to Rut Rodriguez DPT effective as of M25.511; low fall risk Subjective Patient reports:. Pt notes he had another injection a few weeks ago and it didn't help at all. Notes he does all of his HEP everyday. Has to make his appointment with his MD. Home program performing as directed: Yes. Precautions: Fall Risk: low Pertinent medical HX includes: cerv spondylosis; B sciatica; L knee scope 1987. Objective Ortho RIght AROM: Flex: 60-->140 RIght PROM: Flex: 160 . Observation ROM / Joint Mobility (Range of Motion in degrees) Shoulder: ([place]: P! Denotes Pain with Movement, * Indicates Cochrane Resistant Otherwise Measurements are in Supine) Flexion: R Active 60, R Passive 160, L Active 140, L Passive 165. External Rotation (ER) ABDuction: R Passive 90 deg. ER, in 30 deg. ABD, L Passive 90 deg. ER, in 30 deg. ABD Internal Rotation (IR) ABDuction: R Passive 80 deg. IR, in 30 deg. ABD, L Passive 80 deg. IR, in 30 deg. ABD. R upper arm pain with R active elevation. Outcome Measures Quick Dash score: 56%-->45% Treatment Time in clinic started at 09:05 Time in clinic ended at 09:45 Total time in clinic is 40 minutes. Total timed code time is 38 minutes. Therapeutic exercise (73256): timed minutes 25, units 2 . UBE no resistance 2? fwd 1? bwd rakan scaption 3' flex 3' Pt re-assessed for updated POC, updated/reviewed HEP, and discussed cont (more content not included)... Normal [facility] Therapy Re-eval Noteon 01-30 Therapy Re-eval Note Therapy Diagnosis Assessed 1. Shoulder pain, bilateral (719.41) (M25.511,M25.512) Plan Goals: Goals set and discussed today. 1. Independent HEP to allow for 50% reduction in max ADL C/C sx ( 03/25) 2-3wks 2. 0/10 night time sx to allow for uninterrupted sleep x1wk ( 01/19) 2-3wks 3. Survey score improvement from 56% to 40% (QDI) 3-4wks 4. ROM increase to allow for improved ADL reaching, dressing uppers (from 5. Strength increase to allow for improved ADL carrying, object handling (from, goal partially met Planned interventions include: cryotherapy, education/instruction, electrical stimulation, home program, hot pack, kinesiotaping, manual therapy, self care/home management and therapeutic exercises. Frequency and duration: 2 time(s) a week, for 6 weeks, for 12 visits. Potential to achieve rehab goals is fair: chronic syndrome One final visit with [employer] to update/finalize HEP with addition of thoracic/scapular mobility and lower/mid trap retraining exercises to improve posterior chain stability to improve with use of UE for ADL's AND IADL's. Progress with POC, as tolerated. Assessment Patient identified by name and date of . Pt reassessed this date by supervising PT with improvements noted in Right shoulder AROM as well as PROM compared to eval. He demonstrates improved MMT in RUE but due to chronic spine issues as well as significant kyphosis in thoracic spine, pt has difficulty with proper motor control with posterior/inferior scap musculature. He responded well to time focused on STW this date due to presentation of increased myofascial restriction with improved tissue mobility after session. Pt reports good understanding for all edu provided this date and will have one final visit with [employer] to finalize hep due to no time this date. He has maintained good attendance with visits and good compliance with HEP making good progress/meeting most if not all PT goals. Response to treatment: no change in pain. Adult Risk Screening There are no spiritual/cultural practices/values/needs that are important to know Initial Fall Risk Screening: SARAN has fallen in the last 6 months. He has fallen due to trip and fall. His fall did not result in injury. SARAN does not have a fear of falling. He does not need assistance with sitting, standing or walking. Does not need assistance walking in his home. He does not need assistance in an unfamiliar setting. The patient is not using an assistive device. Fall Risk Screening: Patient is identified as a fall risk. Care Plan: Low Risk: Environmental for all patients and low risk patients: Offer assistance as needed or requested, keep environment free of obstacles, keep floor clean and dry, keep room lighting, wheelchair brakes on, bed/ stretcher locked and in low position if applicable, non-slip footwear if applicable, walker/cane available if needed, side rails up if applicable and pre-emptive toileting. Pain Scale: On a scale of 0 to 10, the patient rates the pain at 5. Please identify location of pain: R shldr and scap. Pain Quality: aching and sharp. Insurance Insurance reviewed Visit number: 10 Approved number of visits: 12 additional Authorization date range: 12/23/21-02/10/22 [employer] Evaluating therapist Viktor Espinoza PT. The physical therapist of record is the therapist who assumes primary responsibility for patient management and as such is held accountable for the coordination, continuation and progression of the POC. This patient?s care and PT of record will be transferred from Viktor Espinoza PT to Rut Rodriguez DPT effective as of M25.511; low fall risk Subjective Patient reports:. Pt notes he had another injection a few weeks ago and it didn't help at all. Notes he does all of his HEP everyday. Has to make his appointment with his MD. Home program performing as directed: Yes. Precautions: Fall Risk: low Pertinent medical HX includes: cerv spondylosis; B sciatica; L knee scope 1987. Objective Ortho RIght AROM: Flex: 60-->140 RIght PROM: Flex: 160 . Observation ROM / Joint Mobility (Range of Motion in degrees) Shoulder: ([place]: P! Denotes Pain with Movement, * Indicates Cochrane Resistant Otherwise Measurements are in Supine) Flexion: R Active 60, R Passive 160, L Active 140, L Passive 165. External Rotation (ER) ABDuction: R Passive 90 deg. ER, in 30 deg. ABD, L Passive 90 deg. ER, in 30 deg. ABD Internal Rotation (IR) ABDuction: R Passive 80 deg. IR, in 30 deg. ABD, L Passive 80 deg. IR, in 30 deg. ABD. R upper arm pain with R active elevation. Outcome Measures Quick Dash score: 56%-->45% Treatment Time in clinic started at 09:05 Time in clinic ended at 09:45 Total time in clinic is 40 minutes. Total timed code time is 38 minutes. Therapeutic exercise (97540): timed minutes 25, units 2 . UBE no resistance 2? fwd 1? bwd rakan scaption 3' flex 3' Pt re-assessed for updated POC, updated/reviewed HEP, and discussed c (more content not included)... Normal [facility] PT Progress Noteon 2 PT Progress Note Therapy Diagnosis Assessed Shoulder pain, bilateral (719.41) (M25.511,M25.512) Plan Goals: Goals set and discussed today. 1. Independent HEP to allow for 50% reduction in max ADL C/C sx ( 03/25) 2-3wks 2. 0/10 night time sx to allow for uninterrupted sleep x1wk ( 01/19) 2-3wks 3. Survey score improvement from 56% to 40% (QDI) 3-4wks 4. ROM increase to allow for improved ADL reaching, dressing uppers (from 5. Strength increase to allow for improved ADL carrying, object handling (from Planned interventions include: cryotherapy, education/instruction, electrical stimulation, home program, hot pack, kinesiotaping, manual therapy, self care/home management and therapeutic exercises. Frequency and duration: 2 time(s) a week, for 6 weeks, for 12 visits. Potential to achieve rehab goals is fair: chronic syndrome Progress ther ex and balance for continued improved functional mobility and strength with home related tasks. Progress with POC, as tolerated. Assessment Patient identified by name and date of . Patient was able to progress with strengthening this date with addition of t-band walkouts and delt/lat raises. He demonstrated increased ease with PROM with increased ROM in all planes and cues to relax. Adult Risk Screening There are no spiritual/cultural practices/values/needs that are important to know Initial Fall Risk Screening: SARAN has fallen in the last 6 months. He has fallen due to trip and fall. His fall did not result in injury. SARAN does not have a fear of falling. He does not need assistance with sitting, standing or walking. Does not need assistance walking in his home. He does not need assistance in an unfamiliar setting. The patient is not using an assistive device. Fall Risk Screening: Patient is identified as a fall risk. Care Plan: Low Risk: Environmental for all patients and low risk patients: Offer assistance as needed or requested, keep environment free of obstacles, keep floor clean and dry, keep room lighting, wheelchair brakes on, bed/ stretcher locked and in low position if applicable, non-slip footwear if applicable, walker/cane available if needed, side rails up if applicable and pre-emptive toileting. Pain Scale: On a scale of 0 to 10, the patient rates the pain at 4. Please identify location of pain: R shldr and scap. Pain Quality: aching and sharp. Insurance Insurance reviewed Visit number: 9 Approved number of visits: 12 additional Authorization date range: 12/23/21-02/10/22 [employer] Evaluating therapist Viktor Espinoza PT. The physical therapist of record is the therapist who assumes primary responsibility for patient management and as such is held accountable for the coordination, continuation and progression of the POC. This patient?s care and PT of record will be transferred from Viktor Espinoza PT to Rut Rodriguez DPT effective as of M25.511; low fall risk Subjective Patient reports:. Patient reported he has been diagnosed with DISH (Diffuse idiopathic skeletal hyperostosis). He reported /10 pain. Patient reported 4-5/10 pain after treatment. Home program performing as directed: Yes. Precautions: Fall Risk: low Pertinent medical HX includes: cerv spondylosis; B sciatica; L knee scope 1987. Treatment Time in clinic started at 09:05 Time in clinic ended at 09:45 Total time in clinic is 40 minutes. Total timed code time is 38 minutes. Therapeutic exercise (85922): timed minutes 28, units 2 . UBE no resistance 2? fwd 1? bwd Seated scap retraction 2 x 10 T-band walk outs x10 2 steps (N) -ER, IR,Flex, ext rakan scaption 3' flex 3' Finger ladder x 5 to #39 but has pain at #28 Wall slide flex AND Scap 4 x 10 I?s and T?s at wall x10 3? Delt and lat raises 0# 2 x 10 (N) Standing R shldr rizwana 10 x5? count ea (flex/abd/ext/ER/IR) D/C SB on plinth flex/ext, lateral, CW, CCW 3 x10 D/C Standing shoulder rolls bwd/fwd 2 D/C to HEP . Manual Therapy (81404): timed minutes 10, units 1 . PROM all planes table slightly elevated STW to tricep/bicep. 'Scores and Scales' Signatures Electronically signed by : Joan Mann, [employer]; Jan 27 2022 9:52AM EST (Author) Electronically signed by : Laurie Tapia, PT; Jan 29 2022 11:35PM EST [facility] Progress Noteon 2 PT Progress Note Therapy Diagnosis Assessed Shoulder pain, right (719.41) (M25.511) Plan Goals: Goals set and discussed today. 1. Independent HEP to allow for 50% reduction in max ADL C/C sx ( 03/25) 2-3wks 2. 0/10 night time sx to allow for uninterrupted sleep x1wk ( 01/19) 2-3wks 3. Survey score improvement from 56% to 40% (QDI) 3-4wks 4. ROM increase to allow for improved ADL reaching, dressing uppers (from 5. Strength increase to allow for improved ADL carrying, object handling (from Planned interventions include: cryotherapy, education/instruction, electrical stimulation, home program, hot pack, kinesiotaping, manual therapy, self care/home management and therapeutic exercises. Frequency and duration: 2 time(s) a week, for 6 weeks, for 12 visits. Potential to achieve rehab goals is fair: chronic syndrome Progress ther ex and balance for continued improved functional mobility and strength with home related tasks. Progress with POC, as tolerated. Assessment Patient identified by name and date of . Reduction of treatment time this date due to patient coming late to treatment. Patient demonstrated increased ROM and increased ease with exercises this date. He required cues to relax with PROM. Adult Risk Screening There are no spiritual/cultural practices/values/needs that are important to know Initial Fall Risk Screening: SARAN has fallen in the last 6 months. He has fallen due to trip and fall. His fall did not result in injury. SARAN does not have a fear of falling. He does not need assistance with sitting, standing or walking. Does not need assistance walking in his home. He does not need assistance in an unfamiliar setting. The patient is not using an assistive device. Fall Risk Screening: Patient is identified as a fall risk. Care Plan: Low Risk: Environmental for all patients and low risk patients: Offer assistance as needed or requested, keep environment free of obstacles, keep floor clean and dry, keep room lighting, wheelchair brakes on, bed/ stretcher locked and in low position if applicable, non-slip footwear if applicable, walker/cane available if needed, side rails up if applicable and pre-emptive toileting. Pain Scale: On a scale of 0 to 10, the patient rates the pain at 6. Please identify location of pain: R shldr and scap. Pain Quality: aching and sharp. Insurance Insurance reviewed Visit number: 8 Approved number of visits: 12 additional Authorization date range: 12/23/21-02/10/22 [employer] Evaluating therapist Viktor Espinoza PT. The physical therapist of record is the therapist who assumes primary responsibility for patient management and as such is held accountable for the coordination, continuation and progression of the POC. This patient?s care and PT of record will be transferred from Viktor Espinoza PT to [facility] DPT effective as of M25.511; low fall risk Subjective Patient reports:. Patient reported 5/10 pain and stated it feels looser at the end of treatment. He reported has an appointment with a spinal surgeon 01/26/22 Dr. Vann. Home program performing as directed: Yes. Precautions: Fall Risk: low Pertinent medical HX includes: cerv spondylosis; B sciatica; L knee scope 1987. Treatment Time in clinic started at 09:33 Time in clinic ended at 10:00 Total time in clinic is 27 minutes. Total timed code time is 25 minutes. Therapeutic exercise (98559): timed minutes 15, units 2 . UBE no resistance 2? fwd 1? bwd Standing R shldr rizwana 10 x5? count ea (flex/abd/ext/ER/IR) Seated scap retraction 2 x 10 Standing shoulder rolls bwd/fwd 2 x 10 (Not time) rakan scaption 3' flex 3' Finger ladder x 5 to #39 but has pain at #28 (P) Wall slide flex AND Scap 4 x 10 (Not time) SB on plinth flex/ext, lateral, CW, CCW 3 x10 I?s and T?s at wall x10 3? (Not time) . Manual Therapy (65323): timed minutes 10, units 1 . PROM all planes table slightly elevated STW to tricep/bicep. 'Scores and Scales' Signatures Electronically signed by : Joan Mann [employer]; Jan 25 2022 11:02AM EST (Author) Electronically signed by : Laurie Tapia, PT; Jan 29 2022 11:35PM EST [facility] Progress Noteon 2 PT Progress Note Therapy Diagnosis Assessed Shoulder pain, right (719.41) (M25.511) Plan Goals: Goals set and discussed today. 1. Independent HEP to allow for 50% reduction in max ADL C/C sx ( 03/25) 2-3wks 2. 0/10 night time sx to allow for uninterrupted sleep x1wk ( 01/19) 2-3wks 3. Survey score improvement from 56% to 40% (QDI) 3-4wks 4. ROM increase to allow for improved ADL reaching, dressing uppers (from 5. Strength increase to allow for improved ADL carrying, object handling (from Planned interventions include: cryotherapy, education/instruction, electrical stimulation, home program, hot pack, kinesiotaping, manual therapy, self care/home management and therapeutic exercises. Frequency and duration: 2 time(s) a week, for 6 weeks, for 12 visits. Potential to achieve rehab goals is fair: chronic syndrome Progress ther ex and balance for continued improved functional mobility and strength with home related tasks. Progress with POC, as tolerated. Assessment Patient identified by name and date of . Patient demonstrated fair tolerance with addition of standing scap strengthening at the was with I's and T's. He required cues throughout PROM to decreases with active motions he demonstrated difficulty and reported increased Sx with PROM. Adult Risk Screening There are no spiritual/cultural practices/values/needs that are important to know Initial Fall Risk Screening: SARAN has fallen in the last 6 months. He has fallen due to trip and fall. His fall did not result in injury. SARAN does not have a fear of falling. He does not need assistance with sitting, standing or walking. Does not need assistance walking in his home. He does not need assistance in an unfamiliar setting. The patient is not using an assistive device. Fall Risk Screening: Patient is identified as a fall risk. Care Plan: Low Risk: Environmental for all patients and low risk patients: Offer assistance as needed or requested, keep environment free of obstacles, keep floor clean and dry, keep room lighting, wheelchair brakes on, bed/ stretcher locked and in low position if applicable, non-slip footwear if applicable, walker/cane available if needed, side rails up if applicable and pre-emptive toileting. Pain Scale: On a scale of 0 to 10, the patient rates the pain at 8. Please identify location of pain: R shldr and scap. Pain Quality: aching and sharp. Insurance Insurance reviewed Visit number: 7 Approved number of visits: 12 additional Authorization date range: 12/23/21-02/10/22 [facility] Viktor Espinoza PT. The physical therapist of record is the therapist who assumes primary responsibility for patient management and as such is held accountable for the coordination, continuation and progression of the POC. This patient?s care and PT of record will be transferred from Viktor Espinoza PT to Rut Rodriguez DPT effective as of M25.511; low fall risk Subjective Patient reports:. Patient reported he received an injection in R shoulder 01/18/22. He reported his physician is ordering an additional MRI of his shoulder. Home program performing as directed: Yes. Precautions: Fall Risk: low Pertinent medical HX includes: cerv spondylosis; B sciatica; L knee scope 1987. Treatment Time in clinic started at 09:17 Time in clinic ended at 10:00 Total time in clinic is 43 minutes. Total timed code time is 41 minutes. Therapeutic exercise (07069): timed minutes 29, units 2 . Standing R shldr rizwana 10 x5? count ea (flex/abd/ext/ER/IR) Seated scap retraction 2 x 10 Standing shoulder rolls bwd/fwd 2 x 10 rakan scaption 3' flex 3' Finger ladder x 5 to #38 but has pain at #28 (P) Wall slide flex AND Scap 4 x 10 SB on plinth flex/ext, lateral, CW, CCW 3 x10 (P) I?s and T?s at wall x10 3? (N) . Manual Therapy (25435): timed minutes 12, units 1 . PROM all planes table slightly elevated STW to tricep/bicep. 'Scores and Scales' Signatures Electronically signed by : Joan Mann [employer]; Jan 20 2022 11:35AM EST (Author) Electronically signed by : Laurie Tapia, PT; Jan 29 2022 11:35PM EST Normal [facility] PT Progress Noteon 2 PT Progress Note Therapy Diagnosis Assessed Shoulder pain, right (719.41) (M25.511) Plan Goals: Goals set and discussed today. 1. Independent HEP to allow for 50% reduction in max ADL C/C sx ( 03/25) 2-3wks 2. 0/10 night time sx to allow for uninterrupted sleep x1wk ( 7/7) 2-3wks 3. Survey score improvement from 56% to 40% (QDI) 3-4wks 4. ROM increase to allow for improved ADL reaching, dressing uppers (from 5. Strength increase to allow for improved ADL carrying, object handling (from Planned interventions include: cryotherapy, education/instruction, electrical stimulation, home program, hot pack, kinesiotaping, manual therapy, self care/home management and therapeutic exercises. Frequency and duration: 2 time(s) a week, for 6 weeks, for 12 visits. Potential to achieve rehab goals is fair: chronic syndrome Progress ther ex and balance for continued improved functional mobility and strength with home related tasks. Progress with POC, as tolerated. Assessment Patient identified by name and date of . Patient did not present with any visual abnormality with bicep this date during treatment. Spoke with PT, instructed to continue within patients limits. He was able complete exercises with report of mild increase in Sx after. Adult Risk Screening There are no spiritual/cultural practices/values/needs that are important to know Initial Fall Risk Screening: SARAN has fallen in the last 6 months. He has fallen due to trip and fall. His fall did not result in injury. SARAN does not have a fear of falling. He does not need assistance with sitting, standing or walking. Does not need assistance walking in his home. He does not need assistance in an unfamiliar setting. The patient is not using an assistive device. Fall Risk Screening: Patient is identified as a fall risk. Care Plan: Low Risk: Environmental for all patients and low risk patients: Offer assistance as needed or requested, keep environment free of obstacles, keep floor clean and dry, keep room lighting, wheelchair brakes on, bed/ stretcher locked and in low position if applicable, non-slip footwear if applicable, walker/cane available if needed, side rails up if applicable and pre-emptive toileting. Pain Scale: On a scale of 0 to 10, the patient rates the pain at 7. Please identify location of pain: R shldr and scap. Pain Quality: aching and sharp. Insurance Insurance reviewed Visit number: 6 Approved number of visits: 12 additional Authorization date range: 12/23/21-02/10/22 [facility] Viktor Espinoza PT. The physical therapist of record is the therapist who assumes primary responsibility for patient management and as such is held accountable for the coordination, continuation and progression of the POC. This patient?s care and PT of record will be transferred from Viktor Espinoza PT to Rut Rodriguez DPT effective as of M25.511; low fall risk Subjective Patient reports:. Patient reported he has been experiencing increased Sx the past few days and reported popping' at times and noted a split in his bicep area the night prior. He reported 8/10 pain after treatment. Home program performing as directed: Yes. Precautions: Fall Risk: low Pertinent medical HX includes: cerv spondylosis; B sciatica; L knee scope 1987. Treatment Time in clinic started at 09:12 Time in clinic ended at 10:00 Total time in clinic is 47 minutes. Total timed code time is 44 minutes. Therapeutic exercise (53004): timed minutes 32, units 2 . Standing R shldr rizwana 10 x5? count ea (flex/abd/ext/ER/IR) Seated scap retraction 2 x 10 Standing shoulder rolls bwd/fwd 2 x 10 rakan scaption 3' flex 3' Finger ladder x 5 to #38 but has pain at #28 (P) Wall slide flex AND Scap 4 x 10 SB on plinth flex/ext, lateral, CW, CCW 3 x10 (P) . Manual Therapy (55052): timed minutes 12, units 1 . PROM all planes table slightly elevated STW to tricep/bicep. 'Scores and Scales' Signatures Electronically signed by : Joan Mann, [employer]; Jan 11 2022 10:16AM EST (Author) Electronically signed by : Laurie Tapia, PT; Jan 17 2022 9:45PM EST Normal [facility] PT Progress Noteon 2 PT Progress Note Therapy Diagnosis Assessed Shoulder pain, right (719.41) (M25.511) Plan Goals: Goals set and discussed today. 1. Independent HEP to allow for 50% reduction in max ADL C/C sx ( 03/25) 2-3wks 2. 0/10 night time sx to allow for uninterrupted sleep x1wk ( 01/19) 2-3wks 3. Survey score improvement from 56% to 40% (QDI) 3-4wks 4. ROM increase to allow for improved ADL reaching, dressing uppers (from 5. Strength increase to allow for improved ADL carrying, object handling (from Planned interventions include: cryotherapy, education/instruction, electrical stimulation, home program, hot pack, kinesiotaping, manual therapy, self care/home management and therapeutic exercises. Frequency and duration: 2 time(s) a week, for 6 weeks, for 12 visits. Potential to achieve rehab goals is fair: chronic syndrome Progress ther ex for continued improved functional mobility and strength with home related tasks. Progress with POC, as tolerated. Assessment Patient identified by name and date of . Patient demonstrated good understanding of exercises and fair tolerance. He required decreased cues for relaxation with PROM and STW. Adult Risk Screening There are no spiritual/cultural practices/values/needs that are important to know Initial Fall Risk Screening: SARAN has fallen in the last 6 months. He has fallen due to trip and fall. His fall did not result in injury. SARAN does not have a fear of falling. He does not need assistance with sitting, standing or walking. Does not need assistance walking in his home. He does not need assistance in an unfamiliar setting. The patient is not using an assistive device. Fall Risk Screening: Patient is identified as a fall risk. Care Plan: Low Risk: Environmental for all patients and low risk patients: Offer assistance as needed or requested, keep environment free of obstacles, keep floor clean and dry, keep room lighting, wheelchair brakes on, bed/ stretcher locked and in low position if applicable, non-slip footwear if applicable, walker/cane available if needed, side rails up if applicable and pre-emptive toileting. Pain Scale: On a scale of 0 to 10, the patient rates the pain at 5. Please identify location of pain: R shldr and scap. Pain Quality: aching and sharp. Insurance Insurance reviewed Visit number: 5 Approved number of visits: 12 additional Authorization date range: 12/23/21-02/10/22 [facility] Viktor Espinoza PT. The physical therapist of record is the therapist who assumes primary responsibility for patient management and as such is held accountable for the coordination, continuation and progression of the POC. This patient?s care and PT of record will be transferred from Viktor Espinoza PT to Rut Rodriguez DPT effective as of M25.511; low fall risk Subjective Patient reports:. Patient reported he has stated baclofen two days prior to treatment, he reported that he feels it is helping and he has been able to sleep better. He reported he also had an injection in his SI joint the day prior. He reported /10 pain after treatment. Home program performing as directed: Yes. Precautions: Fall Risk: low Pertinent medical HX includes: cerv spondylosis; B sciatica; L knee scope 1987. Treatment Time in clinic started at 09:15 Time in clinic ended at 09:55 Total time in clinic is 40 minutes. Total timed code time is 38 minutes. Therapeutic exercise (68715): timed minutes 26, units 2 . Standing R shldr rizwana 10 x5? count ea (flex/abd/ext/ER/IR) Seated scap retraction 2 x 10 Standing shoulder rolls bwd/fwd 2 x 10 rakan scaption 3' flex 2' N Finger ladder x 5 to #38 but has pain at #28 (P) Wall slide flex AND Scap 4 x 10 SB on plinth flex/ext, lateral, CW, CCW 3 x10 (P) . Manual Therapy (81254): timed minutes 12, units 1 . PROM all planes table slightly elevated STW to tricep/bicep. 'Scores and Scales' Signatures Electronically signed by : Joan Mann [employer]; Jan 06 2022 10:04AM EST (Author) Electronically signed by : Laurie Tapia PT; Jan 09 2022 10:10AM EST Normal [facility] PT Progress Noteon 2 PT Progress Note Therapy Diagnosis Assessed Shoulder pain, right (719.41) (M25.511) Plan Goals: Goals set and discussed today. 1. Independent HEP to allow for 50% reduction in max ADL C/C sx ( 9/10) 2-3wks 2. 0/10 night time sx to allow for uninterrupted sleep x1wk ( 01/19) 2-3wks 3. Survey score improvement from 56% to 40% (QDI) 3-4wks 4. ROM increase to allow for improved ADL reaching, dressing uppers (from 5. Strength increase to allow for improved ADL carrying, object handling (from Planned interventions include: cryotherapy, education/instruction, electrical stimulation, home program, hot pack, kinesiotaping, manual therapy, self care/home management and therapeutic exercises. Frequency and duration: 2 time(s) a week, for 6 weeks, for 12 visits. Potential to achieve rehab goals is fair: chronic syndrome Progress ther ex for continued improved functional mobility and strength with home related tasks. Progress with POC, as tolerated. Assessment Patient identified by name and date of . Patient was able to progress with ROM with use of SB on table. He required cues for hold time with exercises. He required cues throughout PROM to relax and decrease with active movement. Adult Risk Screening There are no spiritual/cultural practices/values/needs that are important to know Initial Fall Risk Screening: SARAN has fallen in the last 6 months. He has fallen due to trip and fall. His fall did not result in injury. SARAN does not have a fear of falling. He does not need assistance with sitting, standing or walking. Does not need assistance walking in his home. He does not need assistance in an unfamiliar setting. The patient is not using an assistive device. Fall Risk Screening: Patient is identified as a fall risk. Care Plan: Low Risk: Environmental for all patients and low risk patients: Offer assistance as needed or requested, keep environment free of obstacles, keep floor clean and dry, keep room lighting, wheelchair brakes on, bed/ stretcher locked and in low position if applicable, non-slip footwear if applicable, walker/cane available if needed, side rails up if applicable and pre-emptive toileting. Pain Scale: On a scale of 0 to 10, the patient rates the pain at 6. Please identify location of pain: R shldr and scap. Pain Quality: aching and sharp. Insurance Insurance reviewed Visit number: 4 Approved number of visits: 12 additional Authorization date range: 12/23/21-02/10/22 [facility] Evaluating therapist Viktor Espinoza PT. The physical therapist of record is the therapist who assumes primary responsibility for patient management and as such is held accountable for the coordination, continuation and progression of the POC. This patient?s care and PT of record will be transferred from Viktor Espinoza PT to Rut HAWTHORNET effective as of M25.511; low fall risk Subjective Patient reports:. Patient reported 5-6/10 pain after treatment. Home program performing as directed: Yes. Precautions: Fall Risk: low Pertinent medical HX includes: cerv spondylosis; B sciatica; L knee scope 1987. Treatment Time in clinic started at 09:15 Time in clinic ended at 09:55 Total time in clinic is 40 minutes. Total timed code time is 38 minutes. Therapeutic exercise (38494): timed minutes 26, units 2 . Standing R shldr rizwana 10 x5? count ea (flex/abd/ext/ER/IR) Seated scap retraction 2 x 10 Standing shoulder rolls bwd/fwd 2 x 10 rakan scaption 3' flex 2' N Finger ladder x 5 to #36 but has pain at #27 (P) Wall slide flex AND Scap 2 x 10 SB on plinth flex/ext, lateral, CW, CCW 2 x10 . Manual Therapy (42008): timed minutes 12, units 1 . PROM all planes table slightly elevated 10' STW to tricep/bicep 8'. 'Scores and Scales' Signatures Electronically signed by : Joan Mann [employer]; Jan 04 2022 10:12AM EST (Author) Electronically signed by : Laurie Tapia, PT; Jan 09 2022 10:09AM EST Normal [facility] Progress Noteon 2 PT Progress Note Therapy Diagnosis Assessed Shoulder pain, right (719.41) (M25.511) Plan Goals: Goals set and discussed today. 1. Independent HEP to allow for 50% reduction in max ADL C/C sx ( 10) 2-3wks 2. 0/10 night time sx to allow for uninterrupted sleep x1wk ( 7) 2-3wks 3. Survey score improvement from 56% to 40% (QDI) 3-4wks 4. ROM increase to allow for improved ADL reaching, dressing uppers (from 5. Strength increase to allow for improved ADL carrying, object handling (from Planned interventions include: cryotherapy, education/instruction, electrical stimulation, home program, hot pack, kinesiotaping, manual therapy, self care/home management and therapeutic exercises. Frequency and duration: 2 time(s) a week, for 6 weeks, for 12 visits. Potential to achieve rehab goals is fair: chronic syndrome Progress ther ex for continued improved functional mobility and strength with home related tasks. Progress with POC, as tolerated. Assessment Patient identified by name and date of . Patient demonstrated difficulty with relaxing with PROM and required max cues to decrease with tension. He was able to progress with reps with finger ladder. Adult Risk Screening There are no spiritual/cultural practices/values/needs that are important to know Initial Fall Risk Screening: SARAN has fallen in the last 6 months. He has fallen due to trip and fall. His fall did not result in injury. SARAN does not have a fear of falling. He does not need assistance with sitting, standing or walking. Does not need assistance walking in his home. He does not need assistance in an unfamiliar setting. The patient is not using an assistive device. Fall Risk Screening: Patient is identified as a fall risk. Care Plan: Low Risk: Environmental for all patients and low risk patients: Offer assistance as needed or requested, keep environment free of obstacles, keep floor clean and dry, keep room lighting, wheelchair brakes on, bed/ stretcher locked and in low position if applicable, non-slip footwear if applicable, walker/cane available if needed, side rails up if applicable and pre-emptive toileting. Pain Scale: On a scale of 0 to 10, the patient rates the pain at 6. Please identify location of pain: R shldr and scap. Pain Quality: sharp and tightness. Insurance Insurance reviewed Visit number: 3 Approved number of visits: 12 additional Authorization date range: 12/23/21-02/10/22 [employer] Evaluating therapist Viktor Espinoza PT. The physical therapist of record is the therapist who assumes primary responsibility for patient management and as such is held accountable for the coordination, continuation and progression of the POC. This patient?s care and PT of record will be transferred from Viktor Espinoza PT to Rut Rodriguez DPT effective as of M25.511; low fall risk Subjective Patient reports:. Patient reported /10 pain. Home program performing as directed: Yes. Precautions: Fall Risk: low Pertinent medical HX includes: cerv spondylosis; B sciatica; L knee scope 1987. Treatment Time in clinic started at 09:14 Time in clinic ended at 09:56 Total time in clinic is 42 minutes. Total timed code time is 40 minutes. Therapeutic exercise (03127): timed minutes 25, units 2 . Standing R shldr rizwana 10 x5? count ea (flex/abd/ext/ER/IR) (P) Seated scap retraction 2 x 10 Standing shoulder rolls bwd/fwd 2 x 10 rakan scaption 3' flex 2' N Finger ladder x 3 to #36 but has pain at #27 (P) Wall slide flex 2 x 10 . Manual Therapy (93741): timed minutes 15, units 1 . PROM all planes table slightly elevated 10' STW to tricep/bicep 8'. 'Scores and Scales' Signatures Electronically signed by : Joan Mann, [employer]; Dec 30 2021 10:03AM EST (Author) Electronically signed by : Laurie Tapia, PT; Jan 03 2022 12:50PM EST Normal [facility] Progress Noteon 2 PT Progress Note Therapy Diagnosis Assessed Shoulder pain, right (719.41) (M25.511) Plan Goals: Goals set and discussed today. 1. Independent HEP to allow for 50% reduction in max ADL C/C sx ( 03/25) 2-3wks 2. 0/10 night time sx to allow for uninterrupted sleep x1wk ( 01/19) 2-3wks 3. Survey score improvement from 56% to 40% (QDI) 3-4wks 4. ROM increase to allow for improved ADL reaching, dressing uppers (from 5. Strength increase to allow for improved ADL carrying, object handling (from Planned interventions include: cryotherapy, education/instruction, electrical stimulation, home program, hot pack, kinesiotaping, manual therapy, self care/home management and therapeutic exercises. Frequency and duration: 2 time(s) a week, for 6 weeks, for 12 visits. Potential to achieve rehab goals is fair: chronic syndrome Progress ther ex for continued improved functional mobility and strength with home related tasks. Progress with POC, as tolerated. Assessment Patient has increased pain with bwd shoulder rolls. Visible motor control deficits with shoulder isometrics. Added PROM this date for improved mobility. Added finger ladder this date with pain starting at #27. Adult Risk Screening There are no spiritual/cultural practices/values/needs that are important to know Initial Fall Risk Screening: SARAN has fallen in the last 6 months. He has fallen due to trip and fall. His fall did not result in injury. SARAN does not have a fear of falling. He does not need assistance with sitting, standing or walking. Does not need assistance walking in his home. He does not need assistance in an unfamiliar setting. The patient is not using an assistive device. Fall Risk Screening: Patient is identified as a fall risk. Care Plan: Low Risk: Environmental for all patients and low risk patients: Offer assistance as needed or requested, keep environment free of obstacles, keep floor clean and dry, keep room lighting, wheelchair brakes on, bed/ stretcher locked and in low position if applicable, non-slip footwear if applicable, walker/cane available if needed, side rails up if applicable and pre-emptive toileting. Please identify location of pain: R shldr. Insurance Insurance reviewed Visit number: [facility] Viktor Espino[facility] PT. The physical therapist of record is the therapist who assumes primary responsibility for patient management and as such is held accountable for the coordination, continuation and progression of the POC. This patient?s care and PT of record will be transferred from Viktor Espinoza PT to Rut Rodriguez DPT effective as of M25.511; low fall risk Subjective Patient reports:. Current shoulder 7/10 currently. States that he was at a 10/10 last night at 2am. States that he rolled last night onto the shoulder and woke up. States that he does not get more than 3-4 hours of sleep at night d/t overall pain. Patient identified by name and date of . Home program performing as directed: Yes. Precautions: Fall Risk: low Pertinent medical HX includes: cerv spondylosis; B sciatica; L knee scope 1987. Treatment Time in clinic started at 10:00 Time in clinic ended at 10:45 Total time in clinic is 45 minutes. Total timed code time is 43 minutes. Therapeutic exercise (68742): timed minutes 25, units 2 . Seated R shldr rizwana 5 x2 count ea (flex/abd/ext/ER/IR) Seated scap retraction 2 x 10 (N) Standing shoulder rolls bwd/fwd 2 x 10 (P to standing) rakan scaption 3' (flex 2' N) Finger ladder x 2 to #36 but has pain at #27 (N) Wall slide flex 2 x 10 (N) . Manual Therapy (75255): timed minutes 18, units 1 . PROM all planes table slightly elevated 10' (N) STW to tricep/bicep 8' (N). 'Scores and Scales' Signatures Electronically signed by : Melissa Rubio PTA; Dec 26 2021 10:52AM EST (Author) Electronically signed by : Laurie Tapia, PT; Jan 03 2022 12:50PM EST (Author) Normal [facility] Initial Evaluationon 12-14 PT Initial Evaluation Therapy Diagnosis Assessed Shoulder pain, right (719.41) (M25.511) Plan of Care Goals: Goals set and discussed today. 1. Independent HEP to allow for 50% reduction in max ADL C/C sx ( 03/25) 2-3wks 2. 0/10 night time sx to allow for uninterrupted sleep x1wk ( 01/19) 2-3wks 3. Survey score improvement from 56% to 40% (QDI) 3-4wks 4. ROM increase to allow for improved ADL reaching, dressing uppers (from 5. Strength increase to allow for improved ADL carrying, object handling (from Planned interventions include: cryotherapy, education/instruction, electrical stimulation, home program, hot pack, kinesiotaping, manual therapy, self care/home management and therapeutic exercises. Frequency and duration: 2 time(s) a week, for 6 weeks, for 12 visits. Potential to achieve rehab goals is fair: chronic syndrome Plan of care was developed with input and agreement by the patient. Assessment HX of 20 ft fall in 2007 with T shldr injury. The patient tripped and fell 2 days post recent surgery and caught himself with his RUE. DOS was 11/29 (SAD, biceps tenotomy). Physical findings include limited AROM and weakness with pain at the R shldr. The patient shows near full R PROM. Continue with ROM/PRE as ivonne. (E+T per script). The patient is a low fall risk. The patient will continue his visits at [facility]. Clinical Presentation: Stable and/or uncomplicated characteristics. Level of Complexity: low Problem List: activity limitations, ADLs/IADLs/self care skills, decreased functional level, decreased knowledge of HEP, decreased knowledge of precautions, fall risk, pain, range of motion/joint mobility and strength. Reason For Visit Initial Evaluation . S/P R shldr SAD biceps tenotomy. Referred by: Cody Mills MD Adult Risk Screening There are no spiritual/cultural practices/values/needs that are important to know Initial Fall Risk Screening: SARAN has fallen in the last 6 months. He has fallen due to trip and fall. His fall did not result in injury. SARAN does not have a fear of falling. He does not need assistance with sitting, standing or walking. Does not need assistance walking in his home. He does not need assistance in an unfamiliar setting. The patient is not using an assistive device. Fall Risk Screening: Patient is identified as a fall risk. Care Plan: Low Risk: Environmental for all patients and low risk patients: Offer assistance as needed or requested, keep environment free of obstacles, keep floor clean and dry, keep room lighting, wheelchair brakes on, bed/ stretcher locked and in low position if applicable, non-slip footwear if applicable, walker/cane available if needed, side rails up if applicable and pre-emptive toileting. Pain Scale: On a scale of 0 to 10, the patient rates the pain at 9. Please identify location of pain: R shldr. Insurance Insurance reviewed Visit number: 1 [employer] Evaluating therapist Viktor Espinoza PT. The physical therapist of record is the therapist who assumes primary responsibility for patient management and as such is held accountable for the coordination, continuation and progression of the POC. This patient?s care and PT of record will be transferred from Viktor Espinoza PT to Rut Rodriguez DPT effective as of M25.511; low fall risk Subjective Current Episode of Functional Impairment and/or Pain Date of surgery: 11/29/21 Mechanism of Injury:. S/P SAD, biceps tenotomy. Medical Screening: Reviewed medical history form with patient and medical screening assessed. Current Medical Management:. S/P R shldr SAD and biceps tenotomy done 11/29/21; injection HX (multiple jts and injections). Precautions: Fall Risk: low Pertinent medical HX includes: cerv spondylosis; B sciatica; L knee scope 1987. Functional Assessment Prior level of function: PAINFUL, DIFFICULT, OR ALTERED ADL (marked with an xx) sleep--XX sitting-- sit to standing transfers-- car transfers-- standing-- walking-- carrying--XX stairs-- dressing lowers-- driving-- dressing uppers--XX reaching----XX handling objects--XX other-- . Patient stated goal(s) for treatment include: relieving pain , increasing strength , increasing mobility , reducing symptoms , reducing/preventing future occurrences and learning preventative care measures . Work Status: unemployed . SSD claim pending. Current Status:. R shldr SAD/biceps tenotomy 11/29/21. Patient Awareness: Patient is aware of his diagnosis and prognosis. Personal Factors That May Impact Care:. ID confirmed with B-day; speaks upper sorbian No obtrusive barriers to learning identified/observed. Objective Ortho Observation Palpation: hyper-kyphotic thor spine. ROM / Joint Mobility (Range of Motion in degrees) Shoulder: ([place]: P! Denotes Pain with Movement, * Indicates [place] Resistant Otherwise Measurements are in Supine) Flexion: R Active 60, R Passive 160, L Active 140, L Passive 165. External Rotation (ER) ABDuct (more content not included)... Normal [facility] Therapy Communicationon 12-14 Therapy Communication Message SARAN HARRISON was (D/C)- last seen: . Saran has been seen in clinical physical therapy on 12/23 to 02/01/22 for 12 visit (s) ; there has been no further visits attended; D/C from clinic PT. Signatures Electronically signed by : Michael Espinoza, PT; Mar 15 2022 1:51PM EST (Author) Normal [facility] Basophil percentageon 2021 WBC (Bld) [#/Vol] 8.1 10*3/uL 4.4-11.0 [facility] erythrocytes count (nu mber/volume)on 11-28-2021 RBC (Bld) [#/Vol] 5.02 10*6/uL 4.6-6.2 [facility]: Blood hemoglobin measurement (mass/volume)on 11-28-2021 Hemoglobin (Bld) [Mass/Vol] 15.4 g/dL 13.0-16.5 [facility] Work Phone: Blood platelet mean volumeon 11-28-2021 Platelet mean volume (Bld) [Entitic vol] 9.6 fL 6.2-12.0 [facility] Work Phone: Determination of erythrocyte mean corpuscular volume (MCV)on 11-28-2021 MCV (RBC) [Entitic vol] 93.4 fL 80-[address] [facility] Work Phone: Hematocrit Auto (Bld) [Volum e fraction]on 11-28-2021 Hematocrit (Bld) [Volume fraction] 46.9 % 40-54 [facility] Work Phone: Laboratory - Hematology and Cell countson 11-28-2021 Erythrocyte distribution width (RBC) [Entitic vol] 44.2 fL 35.1-43.9 [facility] Work Phone: Erythrocyte distribution width (RBC) [Ratio] 12.8 % 11.6-14.6 [facility] Work Phone: MCH (RBC) [Entitic mass] 30.7 pg 27.0-32.0 [facility] Work Phone: MCHC Auto (RBC) [Mass/Vol]on 11-28-2021 MCHC (RBC) [Mass/Vol] 32.8 g/dL 32-36 [facility] Work Phone: Platelets bldon 11-28-2021 Platelets (Bld) [#/Vol] 314 10*3/uL 150-450 [facility] Work Phone: PT Progress Noteon 2 PT Progress Note Therapy Diagnosis Assessed Bilateral sciatica (724.3) (M54.31,M54.32) Low back pain (724.2) (M54.50) Transient left leg weakness (729.89) (R29.898) Plan Goals: Goals set and discussed today. LTG's: 1) Improve Lumbar AROM from Mckenzie 75% extension and L SB to Mckenzie <= 30% Ext and L SB. 4-6 weeks 2) Improve LE strength from 4/5 B/l hips and knees to >= 5-/5 b/l hips and knees. 4-6 weeks 3) Improve Modified Oswestry score by >= 5 points. 4-6 weeks 4) Improve LBP from 9/10 at worse to <= 4/10 at worse. 4-6 weeks 5) Functional Goal. 4-[address] ST) Pt/caregiver will be I and consistent with HEP in order to maximize strength and flexibility. 2-3 weeks Planned interventions include: education/instruction, electrical stimulation, home program, hot pack, manual therapy, therapeutic activities and therapeutic exercises. Frequency and duration: 2 time(s) a week, for 4 weeks, for 9 visits. Potential to achieve rehab goals is fair: will continue to work on progressing toward plan of care as tolerated to get a full nights sleep uninterrupted. Assessment Patient identified by name and Demo's weakness in HS with increased weakness of R HS noted this date. Patient quick to fatigue during session. Patient demo's pain throughout session with no relief noted. Appropriately challenged this date with patient being able to complete reps being asked. Jordano's weakness in bilat hip adductors with tremor noted. Adult Risk Screening There are no spiritual/cultural practices/values/needs that are important to know Initial Fall Risk Screening: SARAN has fallen in the last 6 months. He has fallen due to stumbled at night going to restroom. His fall did not result in injury. SARAN does not have a fear of falling. He does not need assistance with sitting, standing or walking. Does not need assistance walking in his home. He does not need assistance in an unfamiliar setting. The patient is not using an assistive device. Please identify location of pain: LBP 6-10. Pain Quality: aching. He uses tobacco: Several times a day. Depression/Suicide Screening: During the past 2 weeks, the patient has not felt down, depressed or hopeless. During the past 2 weeks, the patient has not felt little interest or pleasure in doing things. Insurance Insurance reviewed Visit number: 2 [employer] Ins: Needs sent out for auth Dx: B/L LE Sciatica M54.31, Low back pain M54.50, L leg weakness R29.898 Evaluating PT: Jeremi Hartley Subjective Patient reports:. Patient reports having pain in his lower back rating it a 9/10. States that his pain keeps him from sleeping at night and he has to toss and turn side to side to get comfortable. Home program performing as directed: Yes. Precautions: Fall Risk: low Treatment Time in clinic started at 1046 am Time in clinic ended at 1129 am Total time in clinic is 43 minutes. Total timed code time is 40 minutes. Therapeutic exercise (30435): timed minutes 40, units 3 . Nustep x5' (X, not today, patient request) Slantboard 2x1' (N) Step ups 2x10 4 step (N) SKTC 2x10 5 hold (N) Bridging x10 (N) Supine HS stretch with strap 30 sec hold x 3 reps (P, time) Supine piriformis stretch 30 sec hold x 3 reps (P, time) Supine Lateral Trunk Rotation 2-3 min (N) Supine hip adduction 5 hold 2x10 (N) Supine knee fall out Bilat 2x10 (N). 'Scores and Scales' Signatures Electronically signed by : Christine Kwong [employer]; Nov 11 2021 11:33AM EST (Author) Electronically signed by : Chris Hartley, PT; Nov 15 2021 7:29AM EST Normal [facility] PT Initial Evaluationon 10-15 PT Initial Evaluation Therapy Diagnosis Assessed Bilateral sciatica (724.3) (M54.31,M54.32) Low back pain (724.2) (M54.50) Transient left leg weakness (729.89) (R29.898) Plan of Care Goals: Goals set and discussed today. LTG's: 1) Improve Lumbar AROM from Mckenzie 75% extension and L SB to Mckenzie <= 30% Ext and L SB. 4-6 weeks 2) Improve LE strength from 4/5 B/l hips and knees to >= 5-/5 b/l hips and knees. 4-6 weeks 3) Improve Modified Oswestry score by >= 5 points. 4-6 weeks 4) Improve LBP from 9/10 at worse to <= 4/10 at worse. 4-6 weeks 5) Functional Goal. 4-[address]) Pt/caregiver will be I and consistent with HEP in order to maximize strength and flexibility. 2-3 weeks Planned interventions include: education/instruction, electrical stimulation, home program, hot pack, manual therapy, therapeutic activities and therapeutic exercises. Frequency and duration: 2 time(s) a week, for 4 weeks, for 9 visits. Potential to achieve rehab goals is fair: Plan of care was developed with input and agreement by the patient. Assessment The pt presents with Medical Dx of B/L LE Sciatica, Low Back Pain and L LE Weakness. Pt presents with the following deficits: increased pain, decreased strength, ROM, flexibility and ability to lift, work and stand > 10 min. Pt would benefit from PT services in order to improve on these deficits and to maximize strength and ability for functional activity/mobility. Reason For Visit Initial Evaluation. Referred by: Dr. Mcdowell Primary Care Physician: Dr. Henry Blanton Adult Risk Screening There are no spiritual/cultural practices/values/needs that are important to know Initial Fall Risk Screening: SARAN has fallen in the last 6 months. He has fallen due to stumbled at night going to restroom. His fall did not result in injury. SARAN does not have a fear of falling. He does not need assistance with sitting, standing or walking. Does not need assistance walking in his home. He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 to 10, the patient rates the pain at 6. Please identify location of pain: cervical spine and Right shoulder. Pain Quality: aching, burning, dull, sharp, tightness and throbbing. The pain makes it hard for the patient to do these things: exercise, sleep, house work, relationships with family or friends and self-care (bathing, dressing, eating). Domestic Violence Screen: Does not feel threatened or abused physically, emotionally or sexually. Do you feel UNSAFE? The patient feels safe in the home. Depression/Suicide Screening: During the past 2 weeks, the patient has not felt down, depressed or hopeless. During the past 2 weeks, the patient has not felt little interest or pleasure in doing things. Insurance Insurance reviewed Visit number: 7 Approved number of visits: 8 additional Authorization date range: 04/06/21-05/13/21 Authorization not required after evaluation POC: 01/21 [facility] (EVAL ONLY) Supervising PT: Laurie Tapia PT, DPT, Cert DN PT Dx: M54.12; M25.511; M43.6; M47,812 Onset Date: 2018 Subjective Patient reports:. Pt notes I had a bad weekend. Notes the therapy and the massage helps but about 30min afterwards. Pt notes he will get dizziness and light-headed, especially with reading and having his head forward for too long. Does not have F/U scheduled with MD yet. Patient identified by name and date of . Home program performing as directed: Yes. Precautions: Fall Risk: none Chron's; IBS; Hx Left Arm June 2020. Objective Ortho NDI: 48%-->52% Significantly limited exam: Cervical AROM: Flex: 25% pulling on B/L cervical paraspinals to behind ear-->25% Ext: 40% pinching across base of skull -->50% R Rotation: 28 P! Right-->49 P! L Rotation: 22 P! at base -->48 P! R Sidebend: 2 (more content not included)... 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 Pt will demo and report compliance with HEP in order to augment POC goals and progression toward independence with symptom management for better outcomes once D/C from POC. Pt will demo improved Cervical AROM by >/= 5 degrees into B/L cervical rotation for improved ease with functional activities and progression toward independence with ADL?s AND IADL?s. , by week 3 Pain: Pt will report subjective improvement with c/o pain at worst decreased from 9/10 to , by week 6 Strength: Pt will demo improved MMT by >/= 1 point on 0-5 point scale in BUE's for improved strength and stability, and improved ease with lifting, carrying, and proper mechanics with ADL?s AND IADL?s. , by week 6 NDI, Pt will report subjective improvement with score on NDI improved by >/= 5 points for return to PLOF, improved QOL, and improved ease with ADL?s AND IADL?s. , by week 6 Planned interventions include: cryotherapy, dry needling, education/instruction, home program, hot pack, kinesiotaping, manual therapy, mechanical traction, therapeutic exercises and IASTM/CUPPING. Frequency and duration: 2 time(s) a week, for 4 weeks, for 8 visits . pending insurance approval. Potential to achieve rehab goals is fair: Will continue to complete STW and ROM for improved mobility. Progress with POC, as tolerated. Assessment Increased tightness along the R UT/scalenes and SCM. Patient has difficulty with active cervical rotation d/t limited mobility. Increased discomfort with iso PRE's. Adult Risk Screening There are no spiritual/cultural practices/values/needs that are important to know Initial Fall Risk Screening: SARAN has not fallen in the last 6 months. SARAN does not have a fear of falling. He does not need assistance with sitting, standing or walking. Does not need assistance walking in his home. He does not need assistance in an unfamiliar setting. The patient is not using an assistive device. Pain Scale: On a scale of 0 to 10, the patient rates the pain at 6. Please identify location of pain: cervical spine and Right shoulder. Pain Quality: aching, burning, dull, sharp, tightness and throbbing. The pain makes it hard for the patient to do these things: exercise, sleep, house work, relationships with family or friends and self-care (bathing, dressing, eating). Domestic Violence Screen: Does not feel threatened or abused physically, emotionally or sexually. Do you feel UNSAFE? The patient feels safe in the home. Depression/Suicide Screening: During the past 2 weeks, the patient has not felt down, depressed or hopeless. During the past 2 weeks, the patient has not felt little interest or pleasure in doing things. Insurance Insurance reviewed Visit number: 6 Approved number of visits: 8 additional Authorization date range: 04/06/21-05/13/21 Authorization not required after evaluation POC: 10/22 [facility] (EVAL ONLY) Supervising PT: Laurie Tapia PT, DPT, Cert DN PT Dx: M54.12; M25.511; M43.6; M47,812 Onset Date: 2018 Subjective Patient reports:. Pain level is 6/10 around the neck and going up the back his head on R side and wrapping around his ear. States that he did not sleep well last night. Patient reports that he was DX with beginning stages of Parkinson's and was DX in October 2020. Patient identified by name and date of . Home program performing as directed: Yes. Precautions: Fall Risk: none Chron's; IBS; Hx Left Arm June 2020. Treatment Time in clinic started at 11:30 Time in clinic ended at 12:15 Total time in clinic is 45 minutes. Total timed code time is 42 minutes. Therapeutic exercise (49304): timed minutes 19, units 1 . UBE 3? fwd AND 3 bwd Seated foam roll thoracic ext 10 x 10? Seated B ER x10 orange band (Hold due to pain) Supine Cervical Retraction with Towel x10 3? Supine Cervical ISO lateral x10 3? hold Supine pec stretch 1? x 2 Corner stretch 10 x 10? Supine Cervical Rotation AROM on Pillow x10 ea direction Supine Cervical Side bending x10 ea direction Supine cervical retraction/scap retraction with palms into plinth x10 3? hold Seated Scapular Retraction x10 3? hold D/C to HEP . Manual Therapy (03819): timed minutes 23, units 2 . SOR, STM to B/L SCM and UT; Manual traction gr 1-2; IASTM with thermostim probe: 12' - Heat with PreMod Stim High to B UT's, SCM, and paraspinals. Cupping 3? static . 'Scores and Scales' Signatures Electronically signed by : Melissa Rubio [employer]; Apr 22 2021 12:37PM EST (Author) Electronically signed by : Laurie Tapia PT; Apr 24 2021 10:30PM EST Normal [facility] PT Progress Noteon 1 PT Progress Note Therapy Diagnosis Assessed Cervical radicular pain (723.4) (M54.12) Spondylosis of cervical spine without myelopathy (721.0) (M47.812) Stiffness of cervical spine (723.5) (M43.6) Shoulder pain, bilateral (719.41) (M25.511,M25.512) Chronic pain of both shoulders (719.41,338.29) (M25.511,M25.512,G89.29) Plan Goals: Goals set and discussed today. Pt will demo and report compliance with HEP in order to augment POC goals and progression toward independence with symptom management for better outcomes once D/C from POC. Pt will demo improved Cervical AROM by >/= 5 degrees into B/L cervical rotation for improved ease with functional activities and progression toward independence with ADL?s AND IADL?s. , by week 3 Pain: Pt will report subjective improvement with c/o pain at worst decreased from 9/10 to , by week 6 Strength: Pt will demo improved MMT by >/= 1 point on 0-5 point scale in BUE's for improved strength and stability, and improved ease with lifting, carrying, and proper mechanics with ADL?s AND IADL?s. , by week 6 NDI, Pt will report subjective improvement with score on NDI improved by >/= 5 points for return to PLOF, improved QOL, and improved ease with ADL?s AND IADL?s. , by week 6 Planned interventions include: cryotherapy, dry needling, education/instruction, home program, hot pack, kinesiotaping, manual therapy, mechanical traction, therapeutic exercises and IASTM/CUPPING. Frequency and duration: 2 time(s) a week, for 4 weeks, for 8 visits . pending insurance approval. Potential to achieve rehab goals is fair: Will continue to complete STW and ROM for improved mobility. Progress with POC, as tolerated. Assessment Continued to hold B ER due to increased soreness. Mod FWD head and rounded shoulder posture at rest in sitting and standing. Fatigues quickly with UBE. Good technique with cerv retraction but has difficulty d/t lack of mobility. Applied cupping prior to application of the thermostim this date with patient this now being patient preference. Adult Risk Screening There are no spiritual/cultural practices/values/needs that are important to know Initial Fall Risk Screening: SARAN has not fallen in the last 6 months. SARAN does not have a fear of falling. He does not need assistance with sitting, standing or walking. Does not need assistance walking in his home. He does not need assistance in an unfamiliar setting. The patient is not using an assistive device. Pain Scale: On a scale of 0 to 10, the patient rates the pain at 6. Please identify location of pain: cervical spine and Right shoulder. Pain Quality: aching, burning, dull, sharp, tightness and throbbing. The pain makes it hard for the patient to do these things: exercise, sleep, house work, relationships with family or friends and self-care (bathing, dressing, eating). Domestic Violence Screen: Does not feel threatened or abused physically, emotionally or sexually. Do you feel UNSAFE? The patient feels safe in the home. Depression/Suicide Screening: During the past 2 weeks, the patient has not felt down, depressed or hopeless. During the past 2 weeks, the patient has not felt little interest or pleasure in doing things. Insurance Insurance reviewed Visit number: 5 Approved number of visits: 8 additional Authorization date range: 04/06/21-05/13/21 Authorization not required after evaluation POC: 10/22 [facility] (EVAL ONLY) Supervising PT: Laurie Tapia PT, DPT, Cert DN PT Dx: M54.12; M25.511; M43.6; M47,812 Onset Date: 2018 Subjective Patient reports:. Current pain level 5/10 in the neck region and states that his neck has been stiff. States that his hip has been acting up d/t digging in the ground. Patient identified by name and date of . Home program performing as directed: Yes. Precautions: Fall Risk: none Chron's; IBS; Hx Left Arm June 2020. Treatment Time in clinic started at 10:45 Time in clinic ended at 110:30 Total time in clinic is 44 minutes. Total timed code time is 42 minutes. Therapeutic exercise (60873): timed minutes 23, units 2 . UBE 3? fwd AND 3 bwd Seated foam roll thoracic ext 10 x 10? Seated B ER x10 orange band (Hold due to pain) Supine Cervical Retraction with Towel x10 3? Supine Cervical ISO lateral x10 3? hold Supine pec stretch 1? x 2 Corner stretch 10 x 10? Supine Cervical Rotation AROM on Pillow x10 ea direction Supine Cervical Side bending x10 ea direction Supine cervical retraction/scap retraction with palms into plinth x10 3? hold Seated Scapular Retraction x10 3? hold D/C to HEP . Manual Therapy (44299): timed minutes 15, units 1 . SOR, STM to B/L SCM and UT; Manual traction gr 1-2; IASTM with thermostim probe: 12' - Heat with PreMod Stim High to B UT's, SCM, and paraspinals. Cupping 3? static . 'Scores and Scales' Signatures Electronically signed by : Melissa Rubio PTA; Apr 20 2021 1:30PM EST (Author) Electronically (more content not included)... Normal [facility] PT Progress Noteon 1 PT Progress Note Therapy Diagnosis Assessed Cervical radicular pain (723.4) (M54.12) Spondylosis of cervical spine without myelopathy (721.0) (M47.812) Shoulder pain, bilateral (719.41) (M25.511,M25.512) Stiffness of cervical spine (723.5) (M43.6) Plan Goals: Goals set and discussed today. Pt will demo and report compliance with HEP in order to augment POC goals and progression toward independence with symptom management for better outcomes once D/C from POC. Pt will demo improved Cervical AROM by >/= 5 degrees into B/L cervical rotation for improved ease with functional activities and progression toward independence with ADL?s AND IADL?s. , by week 3 Pain: Pt will report subjective improvement with c/o pain at worst decreased from 9/10 to , by week 6 Strength: Pt will demo improved MMT by >/= 1 point on 0-5 point scale in BUE's for improved strength and stability, and improved ease with lifting, carrying, and proper mechanics with ADL?s AND IADL?s. , by week 6 NDI, Pt will report subjective improvement with score on NDI improved by >/= 5 points for return to PLOF, improved QOL, and improved ease with ADL?s AND IADL?s. , by week 6 Planned interventions include: cryotherapy, dry needling, education/instruction, home program, hot pack, kinesiotaping, manual therapy, mechanical traction, therapeutic exercises and IASTM/CUPPING. Frequency and duration: 2 time(s) a week, for 4 weeks, for 8 visits . pending insurance approval. Potential to achieve rehab goals is fair: Progress with ROM and cervical/postural strengthening for increased ease with ADL's. AW . Progress with POC, as tolerated. Assessment Patient identified by name and date of . Patient presented with increased stiffness/muscle restrictions this date, added cupping this date he tolerated well. Held B ER due to increased soreness. Adult Risk Screening There are no spiritual/cultural practices/values/needs that are important to know Initial Fall Risk Screening: SARAN has not fallen in the last 6 months. SARAN does not have a fear of falling. He does not need assistance with sitting, standing or walking. Does not need assistance walking in his home. He does not need assistance in an unfamiliar setting. The patient is not using an assistive device. Pain Scale: On a scale of 0 to 10, the patient rates the pain at 6. Please identify location of pain: cervical spine and Right shoulder. Pain Quality: aching, burning, dull, sharp, tightness and throbbing. The pain makes it hard for the patient to do these things: exercise, sleep, house work, relationships with family or friends and self-care (bathing, dressing, eating). Domestic Violence Screen: Does not feel threatened or abused physically, emotionally or sexually. Do you feel UNSAFE? The patient feels safe in the home. Depression/Suicide Screening: During the past 2 weeks, the patient has not felt down, depressed or hopeless. During the past 2 weeks, the patient has not felt little interest or pleasure in doing things. Insurance Insurance reviewed Visit number: 4 Approved number of visits: 8 additional Authorization date range: 04/06/21-05/13/21 Authorization not required after evaluation POC: 10/22 [facility] (EVAL ONLY) Supervising PT: Laurie Tapia PT, DPT, Cert DN PT Dx: M54.12; M25.511; M43.6; M47,812 Onset Date: 2018 Subjective Patient reports:. He reported he was required to dig and fill in a hole the day prior to treatment, he reported increased Sx since. He reported no change in pain Sx after treatment and stated it feels looser. Home program performing as directed: Yes. Precautions: Fall Risk: none Chron's; IBS; Hx Left Arm June 2020. Treatment Time in clinic started at 09:15 Time in clinic ended at 09:59 Total time in clinic is 44 minutes. Total timed code time is 42 minutes. Therapeutic exercise (96715): timed minutes 18, units 2 . UBE 3? fwd AND 3 bwd Seated foam roll thoracic ext 10 x 10? Seated B ER x10 orange band (Hold due to pain) Supine Cervical Retraction with Towel x10 3? Supine Cervical ISO lateral x10 3? hold Supine pec stretch 1? x 2 Corner stretch 10 x 10? (N) Supine Cervical Rotation AROM on Pillow x10 ea direction Supine Cervical Side bending x10 ea direction Supine cervical retraction/scap retraction with palms into plinth x10 3? hold Seated Scapular Retraction x10 3? hold D/C to HEP . Manual Therapy (18261): timed minutes 24, units 1 . SOR, STM to B/L SCM and UT; Manual traction gr 1-2; IASTM with thermostim probe: Heat with PreMod Stim High to B UT's, SCM, and paraspinals. Cupping 3? static and 5? dynamic (N) . 'Scores and Scales' Signatures Electronically signed by : Joan Mann [employer]; Apr 15 2021 10:26AM EST (Author) Electronically signed by : Laurie Tapia PT; Apr 15 2021 4:38PM EST Normal [facility] Progress Noteon PT Progress Note Therapy Diagnosis Assessed Cervical radicular pain (723.4) (M54.12) Spondylosis of cervical spine without myelopathy (721.0) (M47.812) Shoulder pain, bilateral (719.41) (M25.511,M25.512) Stiffness of cervical spine (723.5) (M43.6) Plan Goals: Goals set and discussed today. Pt will demo and report compliance with HEP in order to augment POC goals and progression toward independence with symptom management for better outcomes once D/C from POC. Pt will demo improved Cervical AROM by >/= 5 degrees into B/L cervical rotation for improved ease with functional activities and progression toward independence with ADL?s AND IADL?s. , by week 3 Pain: Pt will report subjective improvement with c/o pain at worst decreased from 9/10 to , by week 6 Strength: Pt will demo improved MMT by >/= 1 point on 0-5 point scale in BUE's for improved strength and stability, and improved ease with lifting, carrying, and proper mechanics with ADL?s AND IADL?s. , by week 6 NDI, Pt will report subjective improvement with score on NDI improved by >/= 5 points for return to PLOF, improved QOL, and improved ease with ADL?s AND IADL?s. , by week 6 Planned interventions include: cryotherapy, dry needling, education/instruction, home program, hot pack, kinesiotaping, manual therapy, mechanical traction, therapeutic exercises and IASTM/CUPPING. Frequency and duration: 2 time(s) a week, for 4 weeks, for 8 visits . pending insurance approval. Potential to achieve rehab goals is fair: Progress with ROM and cervical/postural strengthening for increased ease with ADL's. AW . Progress with POC, as tolerated. Assessment Patient identified by name and date of . Patient demonstrated slow movements due to reported Sx. Added B ER with resistance this date he demonstrated fatigue after w/o increased Sx. He demonstrated good tolerance to STW. Adult Risk Screening There are no spiritual/cultural practices/values/needs that are important to know Initial Fall Risk Screening: SARAN has not fallen in the last 6 months. SARAN does not have a fear of falling. He does not need assistance with sitting, standing or walking. Does not need assistance walking in his home. He does not need assistance in an unfamiliar setting. The patient is not using an assistive device. Pain Scale: On a scale of 0 to 10, the patient rates the pain at 6. Please identify location of pain: cervical spine and Right shoulder. Pain Quality: aching, burning, dull, sharp, tightness and throbbing. The pain makes it hard for the patient to do these things: exercise, sleep, house work, relationships with family or friends and self-care (bathing, dressing, eating). Domestic Violence Screen: Does not feel threatened or abused physically, emotionally or sexually. Do you feel UNSAFE? The patient feels safe in the home. Depression/Suicide Screening: During the past 2 weeks, the patient has not felt down, depressed or hopeless. During the past 2 weeks, the patient has not felt little interest or pleasure in doing things. Insurance Insurance reviewed Visit number: 3 Approved number of visits: 8 additional Authorization date range: 04/06/21-05/13/21 Authorization not required after evaluation POC: 09/21 [employer] (EVAL ONLY) Supervising PT: Laurie Tapia PT, DPT, Cert DN PT Dx: M54.12; M25.511; M43.6; M47,812 Onset Date: 2018 Subjective Patient reports:. He reported 6/10 pain in cervical area and 4/10 pain in shoulders prior to treatment, he reported increased Sx in L abd/back due to removal of cyst with Colonoscopy 2 days prior to treatment. He reported his Sx returned with spasms/tightness an hour after his last treatment. He reported 5/10 pain after treatment. Home program performing as directed: Yes. Precautions: Fall Risk: none Chron's; IBS; Hx Left Arm June 2020. Treatment Time in clinic started at 09:45 Time in clinic ended at 10:30 Total time in clinic is 45 minutes. Total timed code time is 42 minutes. Therapeutic exercise (92260): timed minutes 24, units 2 . UBE 3? fwd AND 3 bwd Seated foam roll thoracic ext 10 x 10? Seated Scapular Retraction x10 3? hold Seated B ER x10 orange band (N) Supine Cervical Retraction with Towel x10 3? Supine Cervical ISO lateral x10 3? hold Supine pec stretch 1? x 2 Supine Cervical Rotation AROM on Pillow x10 ea direction Supine Cervical Side bending x10 ea direction . Manual Therapy (28438): timed minutes 18, units 1 . SOR, STM to B/L SCM and UT; Manual traction gr 1-2; IASTM with thermostim probe: Heat with PreMod Stim High to B UT's, SCM, and paraspinals. Cupping (A) TDN (A). 'Scores and Scales' Signatures Electronically signed by : Joan Mann PTA; Apr 13 2021 10:35AM EST (Author) Electronically signed by : Laurie Tapia PT; Apr 15 2021 4:38PM EST Normal [facility] Therapy Communicationon 03-17 Therapy Communication Message SARAN HARRISON canceled today due to colonoscopy being rescheduled to earlier. Signatures Electronically signed by : Laurie Tapia PT; Apr 11 2021 9:24AM EST (Author) Normal [facility] PT Progress Noteon PT Progress Note Therapy Diagnosis Assessed Cervical radicular pain (723.4) (M54.12) Spondylosis of cervical spine without myelopathy (721.0) (M47.812) Shoulder pain, bilateral (719.41) (M25.511,M25.512) Stiffness of cervical spine (723.5) (M43.6) Plan Goals: Goals set and discussed today. Pt will demo and report compliance with HEP in order to augment POC goals and progression toward independence with symptom management for better outcomes once D/C from POC. Pt will demo improved Cervical AROM by >/= 5 degrees into B/L cervical rotation for improved ease with functional activities and progression toward independence with ADL?s AND IADL?s. , by week 3 Pain: Pt will report subjective improvement with c/o pain at worst decreased from 9/10 to , by week 6 Strength: Pt will demo improved MMT by >/= 1 point on 0-5 point scale in BUE's for improved strength and stability, and improved ease with lifting, carrying, and proper mechanics with ADL?s AND IADL?s. , by week 6 NDI, Pt will report subjective improvement with score on NDI improved by >/= 5 points for return to PLOF, improved QOL, and improved ease with ADL?s AND IADL?s. , by week 6 Planned interventions include: cryotherapy, dry needling, education/instruction, home program, hot pack, kinesiotaping, manual therapy, mechanical traction, therapeutic exercises and IASTM/CUPPING. Frequency and duration: 2 time(s) a week, for 4 weeks, for 8 visits . pending insurance approval. Potential to achieve rehab goals is fair: Progress with ROM and cervical/postural strengthening for increased ease with ADL's. AW . Progress with POC, as tolerated. Assessment Patient identified by name and date of . Patient demonstrated flexed fwd posturer/head provided cues to increase with upright posture throughout treatment. He responded well to STW/IASTM with thermostim probe with reduction of Sx after treatment. Adult Risk Screening There are no spiritual/cultural practices/values/needs that are important to know Initial Fall Risk Screening: SARAN has not fallen in the last 6 months. SARAN does not have a fear of falling. He does not need assistance with sitting, standing or walking. Does not need assistance walking in his home. He does not need assistance in an unfamiliar setting. The patient is not using an assistive device. Pain Scale: On a scale of 0 to 10, the patient rates the pain at 7. Please identify location of pain: cervical spine and Right shoulder. Pain Quality: aching, burning, dull, sharp, tightness and throbbing. The pain makes it hard for the patient to do these things: exercise, sleep, house work, relationships with family or friends and self-care (bathing, dressing, eating). Domestic Violence Screen: Does not feel threatened or abused physically, emotionally or sexually. Do you feel UNSAFE? The patient feels safe in the home. Depression/Suicide Screening: During the past 2 weeks, the patient has not felt down, depressed or hopeless. During the past 2 weeks, the patient has not felt little interest or pleasure in doing things. Insurance Insurance reviewed Visit number: 2 Approved number of visits: 8 additional Authorization date range: 04/06/21-05/13/21 Authorization not required after evaluation POC: 08/24 [employer] (EVAL ONLY) Supervising PT: Laurie Tapia PT, DPT, Cert DN PT Dx: M54.12; M25.511; M43.6; M47,812 Onset Date: 2018 Subjective Patient reports:. Patient reported 4/10 pain after treatment. Home program performing as directed: Yes. Precautions: Fall Risk: none Chron's; IBS; Hx Left Arm June 2020. Treatment Time in clinic started at 09:15 Time in clinic ended at 10:00 Total time in clinic is 45 minutes. Total timed code time is 43 minutes. Therapeutic exercise (88767): timed minutes 24, units 2 . UBE 3? fwd AND 3 bwd (N) Seated foam roll thoracic ext 10 x 10? (N) Seated Scapular Retraction x10 3? hold Supine Cervical Retraction with Towel x10 3? Supine Cervical ISO lateral x10 3? hold Supine pec stretch 1? x 2 Supine Cervical Rotation AROM on Pillow x10 ea direction Supine Cervical Side bending x10 ea direction . Manual Therapy (17037): timed minutes 19, units 1 . SOR, STM to B/L SCM and UT; Manual traction gr 1-2; IASTM with thermostim probe: Heat with PreMod Stim High to B UT's, SCM, and paraspinals. Cupping (A) TDN (A). 'Scores and Scales' Signatures Electronically signed by : Joan Mann PTA; Apr 08 2021 10:04AM EST (Author) Electronically signed by : Laurie Tapia, PT; Apr 15 2021 4:38PM EST Normal [facility] PT Initial Evaluationon 03-17 PT Initial Evaluation Therapy Diagnosis Assessed Cervical radicular pain (723.4) (M54.12) Spondylosis of cervical spine without myelopathy (721.0) (M47.812) Shoulder pain, bilateral (719.41) (M25.511,M25.512) Stiffness of cervical spine (723.5) (M43.6) Plan of Care Goals: Goals set and discussed today. Pt will demo and report compliance with HEP in order to augment POC goals and progression toward independence with symptom management for better outcomes once D/C from POC. Pt will demo improved Cervical AROM by >/= 5 degrees into B/L cervical rotation for improved ease with functional activities and progression toward independence with ADL?s AND IADL?s. , by week 3 Pain: Pt will report subjective improvement with c/o pain at worst decreased from 9/10 to , by week 6 Strength: Pt will demo improved MMT by >/= 1 point on 0-5 point scale in BUE's for improved strength and stability, and improved ease with lifting, carrying, and proper mechanics with ADL?s AND IADL?s. , by week 6 NDI, Pt will report subjective improvement with score on NDI improved by >/= 5 points for return to PLOF, improved QOL, and improved ease with ADL?s AND IADL?s. , by week 6 Planned interventions include: cryotherapy, dry needling, education/instruction, home program, hot pack, kinesiotaping, manual therapy, mechanical traction, therapeutic exercises and IASTM/CUPPING. Frequency and duration: 2 time(s) a week, for 4 weeks, for 8 visits . pending insurance approval. Potential to achieve rehab goals is fair: Plan of care was developed with input and agreement by the patient. Assessment Mr. HARRISON presents with signs and symptoms consistent with Cervical Spondylosis without myelopathy, Cervical stiffness, as well as B/L shoulder pain and demonstrates impairments/limitations in cervical and shoulder AROM with Right shoulder more affected than Left shoulder, significant weakness in BUE's as well as significant issues with cervical and thoracic skeletal alignment and posture/body mechanics. Pt has significant forward head and rounded thoracic spine with increased kyphotic curve. Pt responded fair to manual techniques performed this date, but did have increased pain following due to myofascial restriction. Pt reported good understanding of all edu and HEP with HO given. They would benefit from skilled Physical Therapy with combination of manual therapy techniques to decrease myofascial and joint restrictions, as well as progression of exercises for ROM, flexibility, strength, core stabilization, and postural retraining, and body mechanics education throughout POC to progress towards independence with ADL?s/IADL?s and return to PLOF. Clinical Presentation: Evolving with changing characteristics. Level of Complexity: low Problem List: activity limitations, ADLs/IADLs/self care skills, decreased functional level, flexibility, motor function/control/tone, pain, participation restrictions, posture, range of motion/joint mobility, strength and transfers. Reason For Visit Initial Evaluation . Spondylosis of Cervical Spine. Referred by: Thad Vann Adult Risk Screening There are no spiritual/cultural practices/values/needs that are important to know Initial Fall Risk Screening: SARAN has not fallen in the last 6 months. SARAN does not have a fear of falling. He does not need assistance with sitting, standing or walking. Does not need assistance walking in his home. He does not need assistance in an unfamiliar setting. The patient is not using an assistive device. Pain Scale: On a scale of 0 to 10, the patient rates the pain at 6. Please identify location of pain: cervical spine and Right shoulder. Pain Quality: aching, burning, dull, sharp, tightness and throbbing. The pain makes it hard for the patient to do these things: exercise, sleep, house work, relationships with family or friends and self-care (bathing, dressing, eating). Domestic Violence Screen: Does not feel threatened or abused physically, emotionally or sexually. Do you feel UNSAFE? The patient feels safe in the home. Depression/Suicide Screening: During the past 2 weeks, the patient has not felt down, depressed or hopeless. During the past 2 weeks, the patient has not felt little interest or pleasure in doing things. Insurance Insurance reviewed Visit number: 1 Authorization not required after evaluation POC: 1/? [employer] (EVAL ONLY) Supervising PT: Laurie Tapia PT, DPT, Cert DN PT Dx: M54.12; M25.511; M43.6; M47,812 Onset Date: 2018 Subjective Current Episode of Functional Impairment and/or Pain Date of onset: 2018 Mechanism of Injury: insidious onset . Pt is a 51 year male presenting today with c/o cervical spine spondylosis as well as cervical radiculopathy. Pt notes most recent injection was in his Right shoulder blade in 2014 and notes it gave him a pause from the pain. Pt notes all of the other injections were not beneficial. Pt notes in 2019 he quit his job and ended up (more content not included)... [facility] Preop Checkliston 06-30-2020 Preop Checklist Preop Checklist: Preop Checklist: Arrival [id number] Arrival Time08:09 Procedure TypeLeft CTR, exc mass middle finger, ulnar nerve neurolysis of elbow Temperature C36.8 degrees C Temperature F98.2 degrees F Heart Rate81 beats per minute Respiratory Rate21 breath per minute Blood Pressure Hckwclkm077 mm/Hg Blood Pressure Nuntupqce45 mm/Hg NPO [id number] 03:30 NPO Commentsip of black coffee ID Band Onyes Allergy Bandno known allergies Consent Signedyes H&P Completeyes Anesthesia Assessment Completedyes EKG Performednot ordered Chest X-Ray Performednot ordered HCG Urine TestN/A Chlorhexadine Bath Givennot applicable Nasal Antiseptic Appliednot applicable Hair Washedyes Soap and water bath with hair shampoo the night before surgeryyes Hat placed on infant prior to transportnot applicable SCD's Appliedyes GEORGE Hose Appliednot ordered Denturesnot applicable Prostheticsnot applicable Hearing Aidsnot applicable Valuables Securedleft in patient room Glasses / Contactsleft in patient room Bowel Prepno Cardiovascular Assessment: Apicalregular Radial Pulsespalpable Extremitieswarm Respiratory Assessment: Respirationsunlabored Air Exchangeequal Breath Soundsclear, diminished bases Neurological Assessment: Level of Consciousnessalert Mobilitymoves all extremities Able to Express Selfyes Age Appropriateyes Emotional Statuscalm Preop Education: Surgical Site Infection Preventionyes Pain Scales and Managementyes Language / Communication: Language / CommunicationEnglish Electronic Signatures: Brenda Padgett (MOE) (Signed 30-Jun-2020 08:58) Authored: Preop Checklist Last Updated: 30-Jun-2020 08:58 by Brenda Padgett (MOE) [facility] Surgical Pathology Depar tmenton 06-30-2020 [facility] Surgical Pathology Department Name SARAN HARRISON Pathologist: ARIAN YIP MD Date of Procedure: 06/30/2020 Date Received: 07/01/2020 Date Reported 07/23/2020 Submitting Physician: GRADY AYALA MD Location: [facility] Copy To/Referring/Attending: GRADY AYALA MD Other External # FINAL DIAGNOSIS A. LEFT MEDIAL EPICONDYLE: -- FRAGMENT OF BONE WITH MILD DEGENERATIVE CHANGE. B. LEFT GANGLION CYST MIDDLE FINGER: -- CONSISTENT WITH GANGLION CYST. Reported from: [place] [address] Electronically Signed Out By ARIAN YIP MD/ATB By the signature on this report, the individual or group listed as making the Final Interpretation/Diagnosis certifies that they have reviewed this case. Clinical History: Physician Contact Number: [phone] Fixative (A): Formalin Fixative (B): Formalin Clinical Diagnosis History G56.22 Specimens Submitted As: A: L MEDIAL EPICONDYLE B: L GANGLION CYST MIDDLE FINGER Gross Description: A: Received in formalin, labeled with the patient's name and hospital number and left medial epicondyle, is a segment of white-huggins bone measuring 1.3 x 1.3 x 0.4 cm. No grossly necrotic tissue is identified. The specimen is submitted in toto in one cassette following decalcification. CJN B: Received in formalin, labeled with the patient's name and hospital number and ganglion cyst left middle finger, is an intact cyst with attached soft tissue measuring 0.7 x 0.4 x 0.4 cm. The specimen is inked and bisected to reveal gelatinous material. The specimen is entirely submitted in one cassette. CJN cjn/07/06/2020 [facility] Department of Pathology [address] [place] [address] Normal [facility] Comment on above: Performed By: #### [facility] #### [facility] Surgical Pathology Department [address] [place] [address] CORONAVIRUS 2019, SCREEN ASY MPTOMATICon 06-29-2020 CORONAVIRUS 2019,PCR NOT DETECTED Normal Not Detected [facility] Comment on above: Result Comment: . This assay is designed to detect the N, ORF1ab and/or S genes of SARS-CoV-2 via nucleic acid amplification. A Negative (NOT DETECTED) result does not preclude 2019-nCoV infection since the adequacy of sample collection and/or low viral burden may result in presence of viral nucleic acids below the clinical sensitivity of this test method. Negative (NOT DETECTED) result should not be used as the sole basis for treatment or other patient management decisions. Rather negative results should be combined with clinical observations, patient history, and epidemiological information to make patient management decisions. Fact sheet for providers: https://www.fda.gov/media/248599/download Fact sheet for patients: https://www.fda.gov/media/041824/download This test has received FDA Emergency Use Authorization (EUA) and has been verified by [facility] ([facility]). This test is only authorized for the duration of time that circumstances exist to justify the authorization of the emergency use of in vitro diagnostic tests for the detection of SARS-CoV-2 virus and/or diagnosis of COVID-19 infection under section 564(b)(1) of the Act, 21 U.S.C. 360bbb-3(b)(1), unless the authorization is terminated or revoked sooner. [facility] is certified under CLIA-88 as qualified to perform high complexity testing. Testing is performed in the [facility] laboratories located at [address] [place] [address]. Performed By: #### [facility] #### [address] [place] [address] Covid 19 Resultson 0 Covid 19 Results NEGATIVE COVID-[address] Coronaviruses are common world-wide and are the cause of many common colds. SARS-COV2 is a new coronavirus that began circulating worldwide in 2019 so we are calling it COVID-19. It has been estimated that four out of five patients with COVID-19 will recover at home without the need for medical attention. Symptoms of COVID-19 include cough, fever, shortness of breath, loss of taste or smell and other flu-like symptoms including chills, sore muscles, sore throat, and headache. Severe illness is more common in older people and people with other health problems such as high blood pressure, obesity, and immune system problems. If the test is positive, you have COVID-19. You will be contacted by the ordering physicians office and instructed to remain on home isolation, in accordance with CDC guidelines. You may also be contacted by the [facility] to see if any of your close contacts may have been exposed to the virus and need to quarantine. If the test is negative, you likely do not have COVID-19 at this time, but you still may have a different illness that can spread to other people (like Influenza, or the Flu) and could still be at risk for getting COVID-19. We recommend that you stay away from other people to limit the spread of illness until your symptoms are improving and you are fever-free for 24 hours without the use of fever lowering medications such as acetaminophen or ibuprofen. No test is 100% accurate so if you are still concerned you may have COVID-19, talk to your doctor about the need to continue to stay away from others. Medicines Acetaminophen (Tylenol and others) is generally safe. Anti-inflammatory medications, such as Ibuprofen (Advil or Motrin) or Naproxen (Aleve) can also be used. Gmlj-ncz-pillnnz cough and cold medicines can be used according to the instructions on the package. Some cgiz-fyg-uepqexs medicines also contain acetaminophen. Make sure you are not taking more than your recommended dose For those not hospitalized, there is no specific treatment available for this illness. Antibiotics do not treat Coronaviruses. Follow-Up Follow up with your doctor by scheduling a virtual visit or consider follow-up at one of our urgent care fever clinics. If you are having difficulty breathing, or are very weak and having difficulty standing, this is a medical emergency. Call 911 or have someone take you to the nearest emergency room immediately. If possible, wear a facemask. Additional guidance from the CDC for patients who tested POSITIVE for COVID-19 How to isolate: Isolate yourself in a specific room at home and limit your contact with others. Use a separate bathroom from other members of the household, when possible. Leave home only to get essential medical care. Do not go to work, school or public areas. Avoid using public transportation, ride-sharing, or taxis. Restrict contact with pets and other animals. If you must care for your pet or be around animals while you are sick, wash your hands before and after your interaction and wear a facemask. Make sure that shared spaces in the home have good airflow, such as by an air conditioner or an opened window, weather permitting. Personal Hygiene Procedures: Wear a face mask when in the same room as other people or pets. If a face mask interferes with your breathing, others should wear a mask when sharing space with you. Frequent hand-washing: wash your hands with soap and water for at least 20 seconds. If soap and water are not available, use alcohol-based hand director of hotel operations. Avoid touching your eyes, nose, and mouth with unwashed hands. Household Hygiene Procedures: Avoid sharing personal household items such as dishes, glassware, cups, eating utensils, towels or bedding with other people or pets in your home. After use, these items should be washed with soap and hot water. Disinfect all high-touch surfaces every day with antibacterial cleaning solutions such as Lysol wipes, bleach, cleansers, etc. High-touch surfaces include tabletops, doorknobs, bathroom fixtures, toilets, phones, keyboards, tablets and bedside tables. Immediately clean any surfaces that may have blood, poop or body fluids on them, using antibacterial cleaning solutions such as Lysol wipes, bleach, cleansers, etc. If clothing or bedding come into contact with blood, poop or body fluids, they should be washed immediately. Follow the directions on the laundry detergent and clothing labels but hot water is recommended when possible. Stopping home isolation precautions: If possible, consult your doctor before stopping home isolation precautions. According to the CDC, you can discontinue home isolation precautions when you have met both of these criteria: Your fever and respiratory symptoms have been gone for 24 hours without the use of any medicines like ibuprofen (Motrin) and acetaminophen (Tylenol). It has been at least 10 days since your symptoms first appeared. If you are immunosuppressed OR you were admitted to the hospital for this, you should wait until it has been 14 days since your symptoms first appeared. Guidelines for Those Living With and/or Caring For Persons with COVID-19: Read and follow all the recommendations outlined in this handout. Do not permit visitors in the home unless there is an essential need. Wear a facemask when in the same room as the patient. Wear a facemask and gloves (disposable if available) when you touch or have contact with the patient's blood, poop, or body fluids including saliva, phlegm, nasal mucus, vomit or urine. Clean or throw away facemasks and gloves after use and wash your hands with soap and water. You will need to quarantine (stay away from others) for 14 days after your last contact with your family member with COVID-19. The person with COVID-19 is considered contagious 48 hours prior to symptoms beginning (or starting with the day of the positive test if they have no symptoms) for a total of 10 days. Additional resources: [facility] COVID Hotline at 2-964-2HPASSA ( ). COVID-19 Careline at (available 24 hours per day, seven days a week if you or a loved one is experiencing anxiety related to the coronavirus pandemic). Clinical research opportunities: is conducting research studies to develop better testing and treatments for COVID. Do you want any information on how to participate Call [phone]. Websites: hospitals.org or www.CDC.gov Follow My Health / My Care (for other test results): Revised 06/01/2020 Electronic Signatures: Klever Ernst (ADMIN) (Signature pending) Authored Last Updated: 29-Jun-2020 01:20 by Klever Ernst (ADMIN) Normal [facility] CORONAVIRUS 2019, SCREEN ASY MPTOMATICon 06-28-2020 Lab Specimen Source Nasal, Nasopharyngeal Normal [facility] Comment on above: Performed By: #### C OVSC #### [facility] [address] [place] [address] Patient Profile - Preop v2on 06-23-2020 Patient Profile - Preop v2 Profile: Initial Info: How to be Addressedmichael Spoken Language PreferredEnglish Source of Informationpatient Are you currently using the Personal Electronic Health Record or [facility] Are you interested in learning more about [facility] for the management of your healthdeclined Instructions Givenappropriate clothing, center location Prep Instructions Reviewedyes Instructed to Have No Fluids Aftermidnight Stated Reason for Admissionleft CTR, mass in finger, elbow Primary Contact Name and NumberCassidyz adrianna [phone] Patient Belongingsremains with patient Patient Belongings Remaining with Patientcell phone/electronics; clothing; vision aids; at bedside Medications Brought to Hospitalno General Health: Weight in kg86.2 kilogram(s) Weight in ofd958 pound(s) Weight Methodactual (measured) Scale Typestanding Height in feet5 feet Height in inches8 inch(es) Height in cm172.7 centimeter(s) Height Methodstated BMI (kg/m2)28.901 square meter Patient or Family Member Reaction to Anesthesiano previous reaction; no previous family member reaction Blood Avoidance/Restrictionsbl ood borne infection concerns Relationship/Environ: Lives Withadult child(albino) Resource/Environmental Concernsnone Substance: Current or Former Substance Use never: e-Cigarette/Vaping, Alcohol, Street Drugs YES: Cigarette/Tobacco Tobacco Cessation Education (provide if tobacco use within the last 12 mos) patient declined Other Tobacco Use Comments1 ppd since age 11 Risk Screens: COVID-19 Screening Completedno exposure or symptoms Advance Directive/DNRno Advance Directive Information Givenpatient/family declined During the past month, have you often been bothered by feeling down, depressed or hopelessno During the past month, have you often had little interest or pleasure in doing thingsno Have you had any thoughts of harming yourselfno Have you had any thoughts of harming anyone elseno Are you or have you been threatened or abused physically,emotionally or sexually abused by anyoneno Do you feel UNSAFE going back to the place you are livingno Patient is Able to be Assessed for Learningyes Factors Influencing Readiness to Learninterest in learning Factors that Impact Ability to Learnnone Devices/Methods Used to Communicatenone Learning Preferencesindividual instruction; written material Cultural Considerationsnone Developmental Considerationsnone Christian Considerationsnone Other learner availableno Falls RiskPatient location auto qualifies him/her for HIGH RISK. Are there any cultural, spiritual, evangelical practices/values/needs that are important for us to knowno Pain Scalenumerical 0-10 Pain Scale Educationteaching provided Current Pain Level7 = Severe Acceptable Pain Level6 = Moderate Chronic Painno Information Review: Allergies, Home Meds and Significant Events have been Reviewed and Verified with Patient/Familyyes Allergy, Intolerance, Adverse Event: Allergies: No Known Allergies: Active Problem List: Surg History: Dilatation of esophagus: Catalog Name: Other specified diseases of esophagus History of colonoscopy: Catalog Name: Other specified postprocedural states History of arthroscopy of knee: Catalog Name: Other specified postprocedural states History of tonsillectomy: Catalog Name: Acquired absence of other organs Electronic Signatures: Brenda Padgett (RN) (Signed 30-Jun-2020 08:24) Authored: Initial Info, General Health, Relationship/Environ, Risk Screens, Additional Information Khalida Malave (RN) (Signed 23-Jun-2020 13:14) Authored: Initial Info, General Health, Substance, Risk Screens, Additional Information Last Updated: 30-Jun-2020 08:24 by Brenda Padgett (MOE) Normal [facility] BASIC METABOLIC PANELon 12-0 Anion gap [Moles/Vol] 9 mmol/L Low 10 - 20 [facility] Comment on above: Performed By: #### B MP #### [place] [address] Calcium [Mass/Vol] 9.2 mg/dL Normal 8.6 - 10.3 [facility] Comment on above: Performed By: #### B MP #### [place] [address] Chloride [Moles/Vol] 103 mmol/L Normal 98 - 107 [facility] Comment on above: Performed By: #### B MP #### [place] [id number] Creatinine [Mass/Vol] 0.83 mg/dL Normal 0.50 - 1.30 [facility] Comment on above: Performed By: #### B MP #### [place] [id number] GFR- AM. >60 Normal >60 [facility] Comment on above: Result Comment: CALC ULATIONS OF ESTIMATED GFR ARE PERFORMED USING THE MDRD STUDY EQUATION FOR THE IDMS-TRACEABLE CREATININE METHODS. CLIN CHEM 2007;53:766-72 Performed By: #### B MP #### [place] [id number] GFR-NON AM. >60 Normal >60 [facility] Comment on above: Performed By: #### B MP #### [address] [address] Glucose [Mass/Vol] 94 mg/dL Normal 74 - 99 [facility] Comment on above: Performed By: #### B MP #### [address] [address] HCO3 (Bld) [Moles/Vol] 29 mmol/L Normal 21 - 32 [facility] Comment on above: Performed By: #### B MP #### [address] [address] Potassium [Moles/Vol] 4.1 mmol/L Normal 3.5 - 5.3 [facility] Comment on above: Performed By: #### B MP #### [address] [address] Sodium [Moles/Vol] 137 mmol/L Normal 136 - 145 [facility] Comment on above: Performed By: #### B MP #### [address] [address] Urea nitrogen [Mass/Vol] 10 mg/dL Normal 6 - 23 [facility] Comment on above: Performed By: #### B MP #### [address] [address] CBC AND DIFFERENTIALon 06-22 Basophils (Bld) [#/Vol] 0.10 10*3/uL Normal 0.00 - 0.[address] [facility] Comment on above: Performed By: #### C BCDF #### [address] [address] Basophils/100 WBC (Bld) 1.8 % Normal 0.0 - 2.0 [facility] Comment on above: Performed By: #### C BCDF #### [address] [address] Eosinophils (Bld) [#/Vol] 0.10 10*3/uL Normal 0.00 - 0.70 [facility] Comment on above: Performed By: #### C BCDF #### [address] [address] Eosinophils/100 WBC (Bld) 1.7 % Normal 0.0 - 6.0 [facility] Comment on above: Performed By: #### C BCDF #### [address] [address] Erythrocyte distribution width (RBC) [Ratio] 13.5 % Normal 11.5 - 14.5 [facility] Comment on above: Performed By: #### C BCDF #### [address] [address] Hematocrit (Bld) [Volume fraction] 49.4 % Normal 41.0 - 52.0 [facility] Comment on above: Performed By: #### C BCDF #### [address] [address] Hemoglobin (Bld) [Mass/Vol] 16.6 g/dL Normal 13.5 - 17.5 [facility] Comment on above: Performed By: #### C BCDF #### [address] [address] Lymphocytes (Bld) [#/Vol] 2.40 10*3/uL Normal 1.20 - 4.80 [facility] Comment on above: Performed By: #### C BCDF #### [address] [address] Lymphocytes/100 WBC (Bld) 31.1 % Normal 13.0 - 44.0 [facility] Comment on above: Performed By: #### C BCDF #### [address] [address] MCHC (RBC) [Mass/Vol] 33.6 g/dL Normal 32.0 - 36.0 [facility] Comment on above: Performed By: #### C BCDF #### [address] [address] MCV (RBC) [Entitic vol] 92 fL Normal 80 - 100 [facility] Comment on above: Performed By: #### C BCDF #### [address] [address] Monocytes (Bld) [#/Vol] 0.70 10*3/uL Normal 0.10 - 1.[address] [facility] Comment on above: Performed By: #### C BCDF #### [address] [address] Monocytes/100 WBC (Bld) 8.8 % Normal 2.0 - 10.0 [facility] Comment on above: Performed By: #### C BCDF #### [address] [address] Neutrophils (Bld) [#/Vol] 4.40 10*3/uL Normal 1.20 - 7.70 [facility] Comment on above: Result Comment: Perc ent differential counts (%) should be interpreted in the context of the absolute cell counts (cells/L). Performed By: #### C BCDF #### [address] [address] Neutrophils/100 WBC (Bld) 56.6 % Normal 40.0 - 80.0 [facility] Comment on above: Performed By: #### C BCDF #### [address] [address] NUCLEATED RBC 0.1 /[address] [facility] Comment on above: Performed By: #### C BCDF #### [address] [address] Platelets (Bld) [#/Vol] 333 10*3/uL Normal 150 - 450 [facility] Comment on above: Performed By: #### C BCDF #### [address] [address] RBC 5.35 x10E12/L Normal 4.50 - 5.90 [facility] Comment on above: Performed By: #### C BCDF #### [address] [address] WBC (Bld) [#/Vol] 7.8 10*3/uL Normal 4.4 - 11.3 [facility] Comment on above: Performed By: #### C BCDF #### [address] [place] [address] XR HAND LEFT 3+ VIEWS (STAND JHONY)on 05-12-2020 XR HAND LEFT 3+ VIEWS (STANDARD) EXAMINATION: XR HAND LEFT 3+ VIEWS (STANDARD) HISTORY: ORDERING SYSTEM PROVIDED HISTORY: Pain, TECHNOLOGIST PROVIDED HISTORY: Illness/Other Reason for exam: lump x 6 months, located proximal lopez side middle finger Cancer History: u Surgery, RadiationHistory: u Encounter Type: Unknown Additional signs and symptoms: lump x 6 months, located proximal lopez side middle finger ORDERING SYSTEM PROVIDED DIAGNOSIS CODES: R52 Pain COMPARISON: None TECHNIQUE: Three views of the left hand. FINDINGS: No acute fractures or dislocations. No radiopaque foreign bodies. IMPRESSION: No acute bony abnormalities. Workstation ID: [id number] Dictated by: CADENCE MENESES on SunMay 13, 2020 11:33:27 AM EDT Transcribed by: CADENCE MENESES on SunMay 13, 2020 11:33:27 AM EDT Finalized by: CADENCE MENESES on SunMay 13, 2020 11:33:27 AM EDT Normal [facility] Comment on above: Order Comment: Injur y/Trauma or Illness?:Illness/Other How long have you had these symptoms (acute/chronic)?:Chronic Reason for exam?:lump x 6 months, located proximal lopez side middle finger History of cancer?:u Surgeries, chemotherapy, or radiation?:u Type of Exam?:Unknown Additional signs and symptoms?:lump x 6 months, located proximal lopez side middle finger C-REACTIVE PROTEINon 020 CRP [Mass/Vol] 2.03 mg/dl High 0.00 - 1.00 [facility] Comment on above: Performed By: #### 2 54958 #### [facility],[address] [place], [place] [id number] CBC + DIFFon 04-07-2020 ATY LYMP 5 % Normal [facility] Comment on above: Performed By: #### 2 00103 #### [facility],[address] [place] [address] BANDS 1 % Normal 0 - 5 [facility] Comment on above: Performed By: #### 2 09592 #### [facility],[address] [place] [address] EO 1.0 % Normal 0.0 - 4.0 [facility] Comment on above: Performed By: #### 2 74915 #### [facility],[address] [place] [address] MONOS 17 % High 0 - 8 [facility] Comment on above: Performed By: #### 2 71650 #### [facility],[address] [place] [address] SEGS 41 % Low 50 - 70 [facility] Comment on above: Performed By: #### 2 97424 #### [facility],[address] [place] [address] Basophils (Bld) [#/Vol] 0.10 x10EE3/UL Normal 0.00 - 0 .10 [facility] Comment on above: Performed By: #### 2 49359 #### [facility],[address] [place] [address] Basophils/100 WBC (Bld) 2.0 % Normal 0.0 - 2.0 [facility] Comment on above: Performed By: #### 2 67600 #### [facility],[address] [place] [address] CBC + DIFF Normal [facility] Comment on above: Result Comment: CBC- COMPLETE BLOOD COUNT Performed By: #### 2 14303 #### [facility],[address] [place] [address] Eosinophils (Bld) [#/Vol] 0.00 x10EE3/UL Normal 0.00 - 0.50 [facility] Comment on above: Performed By: #### 2 25958 #### [facility],[address] [place] [address] Eosinophils/100 WBC (Bld) 0.8 % Normal 0.0 - 7.0 [facility] Comment on above: Performed By: #### 2 77096 #### [facility],[address] [place] [address] Erythrocyte distribution width (RBC) [Ratio] 13.1 % Normal 12.0 - 15.6 [facility] Comment on above: Performed By: #### 2 92210 #### [facility],[address] [place], [place] [address] Hematocrit (Bld) [Volume fraction] 48.7 % Normal 40.0 - 52.0 [facility] Comment on above: Performed By: #### 2 82386 #### [facility],[address] [place] [address] Hemoglobin (Bld) [Mass/Vol] 16.9 g/dL Normal 13.0 - 17.5 [facility] Comment on above: Performed By: #### 2 69214 #### [place] [address] Lymphocytes (Bld) [#/Vol] 2.00 x10EE3/UL Normal 0.80 - 2.80 [facility] Comment on above: Performed By: #### 2 65538 #### [facility],[address] [place] [address] Lymphocytes/100 WBC (Bld) 35 % Normal 20 - 40 [facility] Comment on above: Performed By: #### 2 19506 #### [facility],[address] [place] [address] Lymphocytes/100 WBC (Bld) 33.3 % Normal 20.0 - 45.0 [facility] Comment on above: Performed By: #### 2 75012 #### [facility],[address] [place] [address] MANUAL DIFF SEE BELOW Normal [facility] Comment on above: Performed By: #### 2 45730 #### [facility],[address] [place] [address] MCH (RBC) [Entitic mass] 33 pg Normal 27 - 33 [facility] Comment on above: Performed By: #### 2 10401 #### [facility],[address] [place] [address] MCHC (RBC) [Mass/Vol] 35 X10 3 Normal 32 - 36 [facility] Comment on above: Performed By: #### 2 47399 #### [facility],[address] [place] [address] MCV (RBC) [Entitic vol] 94 fL Normal 81 - 98 [facility] Comment on above: Performed By: #### 2 13976 #### [facility],[address] [place] [address] Monocytes (Bld) [#/Vol] 1.20 x10EE3/UL High 0.20 - 1 .00 [facility] Comment on above: Performed By: #### 2 93583 #### [facility],[address] [place] [address] MONOS % 19.8 % High 0.0 - 10.0 [facility] Comment on above: Performed By: #### 2 75998 #### [facility],[address] [place] [address] Morphology Georgi (Bld) [Interp] NORMAL Normal [facility] Comment on above: Performed By: #### 2 66046 #### [facility],[address] [place] [address] Neutrophils (Bld) [#/Vol] 2.70 x10EE3/UL Normal 1.50 - 7.10 [facility] Comment on above: Performed By: #### 2 81694 #### [address] [address] Neutrophils/100 WBC (Bld) 44.1 % Low 46.0 - 76.0 [facility] Comment on above: Performed By: #### 2 12315 #### [facility],[address] [place] [address] Platelet mean volume (Bld) [Entitic vol] 7.9 fL Normal 6.4 - 10.5 [facility] Comment on above: Result Comment: AUTO MATED DIFFERENTIAL Performed By: #### 2 61471 #### [facility],[address] [place] [address] Platelets (Bld) [#/Vol] 338 x10EE3/UL Normal 150 - 450 [facility] Comment on above: Performed By: #### 2 20167 #### [facility],[address] [place] [address] RBC (Bld) [#/Vol] 5.20 x 10EE6/UL Normal 4.50 - 6.00 [facility] Comment on above: Performed By: #### 2 35360 #### [facility],[address] [place] [address] WBC (Bld) [#/Vol] 6.1 x 10EE3/UL Normal 4.5 - 10.8 [facility] Comment on above: Performed By: #### 2 73297 #### [facility],[address] [place] [address] CMP with eGFRon 04-07-2020 Age - Reported 50 years Normal [facility] Comment on above: Performed By: #### 2 76129 #### [facility],[address] [place] [address] Albumin [Mass/Vol] 4.3 g/dL Normal 3.4 - 4.8 [facility] Comment on above: Performed By: #### 2 48113 #### [facility],[address] [place] [address] Albumin/Globulin [Mass ratio] 1.2 {ratio} Normal 0.9 - 1.6 [facility] Comment on above: Performed By: #### 2 58070 #### [facility],[address] [place] [address] ALK PHOS 66 U/L Normal 38 - 126 [facility] Comment on above: Performed By: #### 2 48088 #### [facility],[address] [place] [address] ALT/SGPT 18 U/L Normal 10 - 40 [facility] Comment on above: Performed By: #### 2 98186 #### [facility],[address] [place] [address] Anion gap [Moles/Vol] 13 mmol/L Normal 10 - 20 [facility] Comment on above: Performed By: #### 2 17382 #### [facility],[address] [place] [address] AST/SGOT 25 U/L Normal 13 - 39 [facility] Comment on above: Performed By: #### 2 81579 #### [facility],[address] [place] [address] B/C RATIO 13 ratio Normal 0 - 30 [facility] Comment on above: Performed By: #### 2 26771 #### [facility],[address] [place] [address] Bilirubin [Mass/Vol] 0.4 mg/dL Normal 0.0 - 1.5 [facility] Comment on above: Performed By: #### 2 13886 #### [facility],[address] [place] [address] Calcium [Mass/Vol] 9.6 mg/dL Normal 8.6 - 10.2 [facility] Comment on above: Performed By: #### 2 46288 #### [facility],[address] [place] [address] Chloride [Moles/Vol] 99 mmol/L Normal 98 - 107 [facility] Comment on above: Performed By: #### 2 59328 #### [facility],[address] [place] [address] CO2 [Moles/Vol] 29.3 mmol/L Normal 21.0 - 31.0 [facility] Comment on above: Performed By: #### 2 65102 #### [facility],[address] [place] [address] Creatinine [Mass/Vol] 0.9 mg/dL Normal 0.7 - 1.3 [facility] Comment on above: Performed By: #### 2 43794 #### [facility],[address] [place] [address] GFR/1.73 sq M predicted among non-blacks MDRD (S/P/Bld) [Vol rate/Area] mL/min/{1.73_m2} Normal 60 - 999 [facility] Comment on above: Result Comment: ACCO RDING TO THE NATIONAL KIDNEY DISEASE EDUCATION PROGRAM(NKDE), A NORMAL eGFR IS A VALUE GREATER THAN OR EQUAL TO 60 ML/MIN/1.73 SQ METERS. CHRONIC KIDNEY DISEASE: <60mL/MIN/1.73 SQ METERS KIDNEY FAILURE: <15mL/MIN/1.73 SQ METERS THIS TEST SHOULD ONLY BE USED FOR PATIENTS 18 YEARS OF AGE AND OLDER. Performed By: #### 2 85247 #### [address] [address] GFR/1.73 sq M predicted among non-blacks MDRD (S/P/Bld) [Vol rate/Area] Normal [facility] Comment on above: Result Comment: COMP REHENSIVE METABOLIC PANEL Performed By: #### 2 60756 #### [facility],[address] [place] [address] Globulin (S) [Mass/Vol] 3.5 g/dL Normal 1.5 - 3.8 [facility] Comment on above: Performed By: #### 2 84916 #### [facility],[address] [place] [address]881 Glucose [Mass/Vol] 97 mg/dL Normal 74 - 106 [facility] Comment on above: Performed By: #### 2 78097 #### [facility],[address] [place] [address]66 Potassium [Moles/Vol] 4.8 mmol/L Normal 3.5 - 5.1 [facility] Comment on above: Performed By: #### 2 39781 #### [facility],[address] [place] [address]131 Protein [Mass/Vol] 7.8 g/dL Normal 6.4 - 8.3 [facility] Comment on above: Performed By: #### 2 47215 #### [facility],[address] [place] [address] Sodium [Moles/Vol] 136 mmol/L Normal 136 - 145 [facility] Comment on above: Performed By: #### 2 17684 #### [facility],[address] [place] [address] 13757 Urea nitrogen [Mass/Vol] 12 mg/dL Normal 6 - 20 [facility] Comment on above: Performed By: #### 2 19763 #### [facility],[address] [place] [address] 13461 LIPID PROFILEon 04-07-2020 Cholesterol [Mass/Vol] 198 mg/dL Normal 0 - 200 [facility] Comment on above: Performed By: #### 2 32552 #### [facility],[address] [place] [address] Cholesterol in HDL [Mass/Vol] 39 mg/dL Low 40 - 60 [facility] Comment on above: Performed By: #### 2 84170 #### [facility],[address] [place] [address] 17874 Cholesterol in LDL [Mass/Vol] 140 mg/dL High 0 - 129 [facility] Comment on above: Performed By: #### 2 94096 #### [facility],[address] [place] [address]001 Cholesterol.total/Tisha sterol in HDL [Mass ratio] 5.1 {ratio} High 0.0 - 5.0 [facility] Comment on above: Performed By: #### 2 36874 #### [facility],[address] [place] [address] 47652 Lipid 1996 panel Normal [facility] Comment on above: Result Comment: LIPI D PROFILE Performed By: #### 2 10107 #### [facility],[address] [place] [address]40 Triglyceride [Mass/Vol] 94 mg/dL Normal 0 - 150 [facility] Comment on above: Performed By: #### 2 79835 #### [facility],[address] [place] [address] 99876 SEDRATEon 04-07-2020 SEDRATE 10 mm/hr Normal 0 - 20 [facility] Comment on above: Performed By: #### 2 35046 #### [facility],[address] [place] [address] 07287 TSHon 04-07-2020 TSH Qn 0.90 uIU/ml Normal 0.34 - 5.60 [facility] Comment on above: Performed By: #### 2 64735 #### [facility],[address] [place] [address] PROGRESSon 07-28-2019 PROGRESS HNO ID: [id number] Author: Kirsten Hussein Service: ? Author Type: RECEP Type: Progress Notes Filed: 07/28/2019 11:55 AM Note Text: ASSESSMENT/PLAN: 1. Meibomian gland dysfunction (MGD) of upper and lower lids of both eyes - ICD9: 373.00, ICD10: H02.88A, H02.88B (primary diagnosis) Recommended using hot compresses 2-3 times per day. 2. Presbyopia - ICD9: 367.4, ICD10: H52.4 3. Regular astigmatism, bilateral - ICD9: 367.21, ICD10: H52.223 4. Hyperopia, bilateral - ICD9: 367.0, ICD10: H52.03 Continue to wear his glasses with the update. Recommended yearly exams, sooner if he has trouble with the dryness. Kirsten Hussein, NOELLE I have confirmed and edited as necessary the relevant ophthalmic history, ROS, and the neuro exam findings as obtained by others. I have seen and examined this patient. I have discussed the case and the management of this patient's care with the Resident/Fellow, if applicable. I also have reviewed and agree with the assessment and plan as stated above and agree with all of its relevant components. Normal [facility] XR Spine Cervical 4 or 5 Vie wson 02-26-2019 XR Spine Cervical 4 or 5 Views Exam Date/Time: 02/25/2019 14:46 EDT Reason for Exam: cervical radiculopathy Report STUDY: XR Spine Cervical 4 or 5 Views;; 02/25/2019 2:46 pm INDICATION: cervical radiculopathy. COMPARISON: None. ACCESSION NUMBER(S): [id number] ORDERING CLINICIAN: Srini Pelaez FINDINGS: CERVICAL SPINE-FIVE VIEWS There are large syndesmophytes anteriorly from C3 through C7. Slight narrowing of the C3-4 and C5-6 intervertebral discs is present. The vertebrae are normal in height. The pedicles are intact. The lateral masses of C1 are normal. Mild encroachment on the right C5-C6 intervertebral neural foramen is present, secondary to degenerative changes at the uncovertebral joints. The alignment is maintained. The odontoid process is intact.The facets are normal in alignment. IMPRESSION: Marked degenerative changes of the cervical spine. Degenerative disc disease at C3-4 and C5-6. Mild right C5-6 foraminal narrowing secondary to degenerative changes. FINAL REPORT Dictated: 02/26/2019 10:35 am Yon Kwon MD Signed (Electronic Signature): 02/26/2019 10:35 am Signed by: Yon Kwon MD Technologist: ISMAEL [facility] ESOPHAGRAMon 09-10-2018 [place] [id number] Patient: SARAN HARRISON Phone#: : 1970 Age: 48 Gender: M Pt. Type: Out Account: [id number] Location: Ordering: DARRIN FLORES Exam Date: 09/10/2018/8:19 Family Phys: Charge Code: [id number] Physician: [place] Order #: [id number] DLP Dose#: PROCEDURE: X-RAY ESOPHAGRAM COMPARISON: None. INDICATIONS: Dysphagia TECHNIQUE: An esophagram was performed with fluoroscopy in the usual manner. TOTAL DOSE: 42.75 mGy FINDINGS: STRUCTURE: The patient was able to swallow a 12 mm barium tablet. It did require several attempts with water to have the tablet clear the hypopharynx. No visible obstruction, stricture, or dilatation. MOTILITY: Normal motility with no reflux. Epiglottis motility appears to be diminished. There is aspiration of barium. Patient does have cough reflex. Evaluation of the esophagus was limited due to aspiration. There is no evidence of abnormal motility or obstruction. REFLUX: None visible. OTHER: Anterior osteophytes with thickening of the anterior spinous ligament is noted with impression on the dorsal esophagus at the lower cervical level. CONCLUSION: 1. There is delayed passage of the barium tablet at the hypopharynx. Several swallows of water was required. 2. There is limited motility of the epiglottis. There was aspiration of barium. The patient does have a cough reflex. 3. Incidentally noted are extensive anterior osteophytes and calcification of the anterior spinous ligament. Dictated by: Carolina Sue MD on 09/10/2018 at 9:23 Approved by: Carolina Sue MD on 09/10/2018 at 9:23 Normal [facility] Auto Diffon 06-27-2018 Basophils (Bld) [#/Vol] 0.1 E3/mcL Normal 0.0-0.2 [facility] Comment on above: Order Comment: Order Added by Discern Expert. Performed By: #### 2 [id number] #### [facility] [employer] [address] [place] [address] Basophils/100 WBC (Bld) 1.2 % Normal 0.0-2.0 [facility] Comment on above: Order Comment: Order Added by Discern Expert. Performed By: #### 2 [id number] #### [facility]GG [employer] [address] [place] [address] Eos Absolute 0.1 E3/mcL Normal 0.0-0.7 [facility] Comment on above: Order Comment: Order Added by Discern Expert. Performed By: #### 2 [id number] #### [facility]GG [employer] [address] [place] [address] Eosinophils/100 WBC (Bld) 1.0 % Normal 0.0-11.0 [facility] Comment on above: Order Comment: Order Added by Discern Expert. Performed By: #### 2 [id number] #### [facility] [employer] [address] [place] [address] Lymphocytes (Bld) [#/Vol] 1.8 E3/mcL Normal 1.2-3.4 [facility] Comment on above: Order Comment: Order Added by Discern Expert. Performed By: #### 2 [id number] #### [facility] [employer] [address] [place] [address] Lymphocytes/100 WBC (Bld) 18.7 % Low 20.0-55.0 [facility] Comment on above: Order Comment: Order Added by Discern Expert. Performed By: #### 2 [id number] #### [facility] [employer] [address] [place] [address] [place] Absolute 0.6 E3/mcL Normal 0.0-0.7 [facility] Comment on above: Order Comment: Order Added by Discern Expert. Performed By: #### 2 [id number] #### [facility] [employer] [address] [place] [address] Monocytes/100 WBC (Bld) 6.5 % Normal 0.0-10.0 [facility] Comment on above: Order Comment: Order Added by Discern Expert. Performed By: #### 2 [id number] #### [facility] [employer] [address] [place] [address] Neutro Absolute 6.9 E3/mcL High 1.4-6.5 [facility] Comment on above: Order Comment: Order Added by Discern Expert. Performed By: #### 2 [id number] #### [facility] [employer] [address] [place] [address] Neutro Auto 72.6 % Normal 37.0-75.0 [facility] Comment on above: Order Comment: Order Added by Discern Expert. Performed By: #### 2 [id number] #### [facility] [employer] [address] [place] [address] BMPon 06-27-2018 Anion gap [Moles/Vol] 9 mmol/L Low 10-[address] [facility] Comment on above: Performed By: #### 2 [id number] #### [employer] [employer] [address] [place] [address] Calcium [Mass/Vol] 9.7 mg/dL Normal 8.6-10.3 [facility] Comment on above: Performed By: #### 2 [id number] #### [employer] [employer] [address] [place] [address] Chloride [Moles/Vol] 104 mmol/L Normal 98-107 [facility] Comment on above: Performed By: #### 2 [id number] #### [employer] [employer] [address] [place] [address] CO2 [Moles/Vol] 29.0 mmol/L Normal 21.0-32.0 [facility] Comment on above: Performed By: #### 2 [id number] #### [employer] [address] [place] [address] Creatinine [Mass/Vol] 0.8 mg/dL Normal 0.5-1.[address] [facility] Comment on above: Performed By: #### 2 [id number] #### [employer] [employer] [address] [place] [address] Glucose [Mass/Vol] 104 mg/dL High 70-99 [facility] Comment on above: Performed By: #### 2 [id number] #### [facility] [employer] [address] [place] [address] Potassium [Moles/Vol] 4.1 mmol/L Normal 3.5-5.[address] [facility] Comment on above: Performed By: #### 2 [id number] #### [employer] [employer] [address] [place] [address] Sodium [Moles/Vol] 138 mmol/L Normal 136-145 [facility] Comment on above: Performed By: #### 2 358977 #### [employer] [employer] [address] [place] [address] Urea nitrogen [Mass/Vol] 8 mg/dL Normal 6-23 [facility] Comment on above: Performed By: #### 2 596981 #### [employer] [facility] [place] [address] Urea nitrogen/Creatinine [Mass ratio] 10.0 ratio Normal 5.4-30.0 [facility] Comment on above: Performed By: #### 2 [id number] #### [employer] [employer] [facility] [place] [address] CBC w/ Auto Diffon 8 Erythrocyte distribution width (RBC) [Ratio] 13.4 % Normal 11.5-14.5 [facility] Comment on above: Performed By: #### 2 [id number] #### [facility] [employer] [address] [place] [address] Hematocrit (Bld) [Volume fraction] 49.1 % Normal 42.0-52.0 [facility] Comment on above: Performed By: #### 2 [id number] #### [facility] [employer] [address] [place] [address] Hemoglobin (Bld) [Mass/Vol] 16.7 g/dL Normal 13.5-18.0 [facility] Comment on above: Performed By: #### 2 [id number] #### [facility] [employer] [address] [place] [address] MCH (RBC) [Entitic mass] 32.5 pg High 27.0-31.0 [facility] Comment on above: Performed By: #### 2 [id number] #### [facility] [employer] [facility] [place] [address] MCHC (RBC) [Mass/Vol] 33.9 g/dL Normal 33.0-37.[address] [facility] Comment on above: Performed By: #### 2 [id number] #### [employer] [employer] [address] [place] [address] MCV (RBC) [Entitic vol] 95.9 fL Normal 78.0-100.0 [facility] Comment on above: Performed By: #### 2 200265 #### [facility] [employer] [facility] [place] [address] Platelet mean volume (Bld) [Entitic vol] 8.0 fL Normal 7.4-11.0 [facility] Comment on above: Performed By: #### 2 [id number] #### [facility]GG [employer] [address] [place] [address] Platelets (Bld) [#/Vol] 347 E3/mcL Normal 130-400 [facility] Comment on above: Performed By: #### 2 [id number] #### [facility]GG [employer] [address] [place] [address] RBC (Bld) [#/Vol] 5.12 E6/mcL Normal 3.90-6.10 [facility] Comment on above: Performed By: #### 2 514753 #### [facility]GG [employer] [facility] [place] [address] WBC (Bld) [#/Vol] 9.5 E3/mcL Normal 3.6-11.0 [facility] Comment on above: Performed By: #### 2 [id number] #### GREGG [employer] [facility] [place] [address] CT Abdomen/Pelvis w/o Contra ston 06-27-2018 CT Abdomen/Pelvis w/o Contrast Exam Date/Time: 06/27/2018 10:04 EST Reason for Exam: Pain Report STUDY: CT Abdomen/Pelvis w/o Contrast; 06/27/2018 10:04 am INDICATION: Pain. COMPARISON: 01/04/2014 ACCESSION NUMBER(S): [id number] ORDERING CLINICIAN: Medina Mensah TECHNIQUE: CT of the abdomen and pelvis was performed. Contiguous axial images were obtained at 3 mm slice thickness through the abdomen and pelvis. Coronal and sagittal reconstructions at 3 mm slice thickness were performed. FINDINGS: LOWER CHEST: There coarse prominent interstitial markings at the periphery of the lower lungs with small cysts indicating fibrosis, mildly progressed compared to the prior exam. ABDOMEN: LIVER: The liver is normal in size without evidence of focal liver lesions. SPLEEN: The spleen is normal in size and homogeneous. ADRENAL GLANDS: Bilateral adrenal glands appear normal. KIDNEYS AND URETERS: The renal cortices are unremarkable and the renal sizes within normal limits. The ureteral courses are unremarkable without dilatation or radiodense calculi. PANCREAS: The pancreas appears unremarkable, there is no ductal dilatation or masses. GALLBLADDER: No radiodense calculi, wall thickening or pericholecystic fluid. Exam Date/Time: 06/27/2018 10:04 EST Report BILE DUCTS: There is no biliary dilatation or filling defects. VESSELS: Mild atherosclerotic calcifications are noted predominantly at the aorta and iliac system. PERITONEUM AND RETROPERITONEUM: No ascites or free air, no fluid collection. The retroperitoneum appears unremarkable, and without significant adenopathy. No enlarged mesenteric lymph nodes. BOWEL: The bowel is unremarkable, without significant dilatation or mucosal edema. PELVIS: BLADDER: The urinary bladder contour is smooth. REPRODUCTIVE ORGANS: No pelvic masses. BONE, ABDOMINAL WALL AND OTHER FINDINGS: No suspicious osseous lesions are identified. The abdominal wall soft tissues appear normal. IMPRESSION: 1. 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 2. Unremarkable scan of the abdomen and pelvis. FINAL REPORT Dictated: 06/27/2018 10:10 am Mohit Valerio MD Signed (Electronic Signature): 06/27/2018 10:10 am Signed by: Mohit Valerio MD Technologist: MLL Normal [facility] Hep Func Panelon 06-27-2018 Albumin [Mass/Vol] 4.3 g/dL Normal 3.4-5.0 [facility] Comment on above: Performed By: #### 2 [id number] #### [facility] [employer] [address] [place] [address] Albumin/Globulin [Mass ratio] 1.3 {ratio} Normal 1.1-1.9 [facility] Comment on above: Performed By: #### 2 [id number] #### [employer] [employer] [facility] [place] [address] Alk Phos 71 Int._Unit/L Normal 33-120 [facility] Comment on above: Performed By: #### 2 [id number] #### [employer] [facility] [place] [address] ALT [Catalytic activity/Vol] 13 Int._Unit/L Normal 10-52 [facility] Comment on above: Performed By: #### 2 [id number] #### [employer] [facility] [place] [address] AST [Catalytic activity/Vol] 20 Int._Unit/L Normal 9-39 [facility] Comment on above: Performed By: #### 2 [id number] #### [facility] [employer] [address] [place] [address]673 Bili Direct 0.06 mg/dL Normal 0.00-0.30 [facility] Comment on above: Performed By: #### 2 [id number] #### [facility] [employer] [address] [place] [address]13 Bili Indirect 0.48 mg/dL Normal [facility] Comment on above: Result Comment: No e stablished ranges available for the indirect bilirubin Performed By: #### 2 [id number] #### [facility] [employer] [address] [place] [address]37 Bili Total 0.54 mg/dL Normal 0.00-1.20 [facility] Comment on above: Performed By: #### 2 [id number] #### [employer] [employer] [address] [place] [address]933 Globulin (S) [Mass/Vol] 3.0 g/dL Normal 2.0-4.0 [facility] Comment on above: Performed By: #### 2 [id number] #### [employer] [employer] [address] [place] [address]451 Protein [Mass/Vol] 7.6 g/dL Normal 6.4-8.2 [facility] Comment on above: Performed By: #### 2 [id number] #### [employer] [employer] [address] [place] [address] 13331 Lipase Levelon 06-27-2018 Lipase Lvl 6 Int._Unit/L Low 9-82 [facility] Comment on above: Performed By: #### 2 [id number] #### [facility] [employer] [address] [place] [address]708 UA Completeon 06-27-2018 Color (U) Yellow Normal Yellow [facility] Comment on above: Performed By: #### 8 [id number] #### GREGG Urinalysis [employer] [employer] [address] [place] [address]59 Glucose (U) [Mass/Vol] Negative Normal Negative [facility] Comment on above: Performed By: #### 8 [id number] #### GREGG Urinalysis [facility] [address] [place] [address] 15525 Ketones Ql (U) Negative Normal Negative [facility] Comment on above: Performed By: #### 8 [id number] #### GREGG Urinalysis Automated Subsection [facility] [place] [address] UA Blood Negative Normal Negative [facility] Comment on above: Performed By: #### 8 [id number] #### GREGG Urinalysis [employer] [address] [place] [address]0922 UA Clarity Clear Normal Clear [facility] Comment on above: Performed By: #### 8 [id number] #### GREGG Urinalysis Automated Subsection [facility] [place] [address] UA Leuk Est Negative Normal Negative [facility] Comment on above: Performed By: #### 8 [id number] #### GREGG Urinalysis [employer] [address] [place] [address] UA Nitrite Negative Normal Negative [facility] Comment on above: Performed By: #### 8 [id number] #### [facility]GG Urinalysis [employer] [address] [place] [address] UA pH 7.0 Normal 4.6-8.0 [facility] Comment on above: Performed By: #### 8 [id number] #### [facility]GG Urinalysis [facility] [address] [place] [address] UA Protein 1+ Abnormal Negative [facility] Comment on above: Performed By: #### 8 [id number] #### [facility] Urinalysis [employer] [address] [place] [address] UA Spec Grav 1.005 Normal 1.003-1.030 [facility] Comment on above: Performed By: #### 8 [id number] #### [facility]GG Urinalysis [employer] [address] [place], [place] [id number] UA Urobilinogen Negative Normal [facility] Comment on above: Result Comment: Due to a manufacturing issue, low positive urobilinogen results may be fasely positive. Correlate with urine bilirubin and additional clinical/laboratory findings to assess the risk of hemolytic anemia or liver disease. If clinically indicated, repeat testing with an alternate method is available by contacting the laboratory within 24 hours. Performed By: #### 8 [id number] #### [facility] Urinal[facility] [address] [place] [address] UA WBC 0-5 Normal 0-5 [facility] Comment on above: Performed By: #### 8 [id number] #### [facility]GG Urinalysis Automated [facility] [address] [place] [id number] Urobilinogen Qn (U) Negative Normal Negative [facility] Comment on above: Performed By: #### 8 [id number] #### GREGG Urinalysis Automated [facility]section [address] [place] [id number] eGFRon 06-27-2018 GFR/1.73 sq M predicted among non-blacks MDRD (S/P/Bld) [Vol rate/Area] mL/min/{1.73_m2} Normal [facility] Comment on above: Order Comment: Order added by Discern Expert. Performed By: #### 1 [id number] #### [facility] [employer] [address] [place] [id number] Vital Signs Date Time Vital Sign Value Performing Clinician Facility 03-31-2025 13:14-0400 Body height 170.[address] Henry Blanton DO Work Phone: [facility] 03-31-2025 13:14-0400 Body mass index (BMI) [Ratio] 27.6 kg/m2 Dr. Henry Blanton DO Work Phone: [facility] 03-31-2025 13:14-0400 Body temperature 97.1 [degF] Dr. Henry Blanton DO Work Phone: [facility] 03-31-2025 13:14-0400 Body weight 79.[address] Henry Blanton DO Work Phone: [facility] 03-31-2025 13:14-0400 Diastolic blood pressure 78 mm[Hg] Dr. Henry Blanton DO Work Phone: [facility] 03-31-2025 13:14-0400 Heart rate 117 /min Dr. Henry Blanton DO Work Phone: [facility] 03-31-2025 13:14-0400 Respiratory rate 16 /min Dr. Henry Blanton DO Work Phone: [facility] 03-31-2025 13:14-0400 SaO2% (BldA) [Mass fraction] 97 % Dr. Henry Blanton DO Work Phone: [facility] 03-31-2025 13:14-0400 Systolic blood pressure 128 mm[Hg] Dr. Henry Blanton DO Work Phone: [facility] 12-30-2024 12:58-0400 Body height 170.[address] Henry Blanton DO Work Phone: [facility] 12-30-2024 12:58-0400 Body mass index (BMI) [Ratio] 28.6 kg/m2 Dr. Henry Blanton DO Work Phone: [facility] 12-30-2024 12:58-0400 Body temperature 99.4 [degF] Dr. Henry Blanton DO Work Phone: [facility] 12-30-2024 12:58-0400 Body weight [address] Henry Blanton DO Work Phone: [facility] 12-30-2024 12:58-0400 Diastolic blood pressure 74 mm[Hg] Dr. Henry Blanton DO Work Phone: [facility] 12-30-2024 12:58-0400 Heart rate 100 /min Dr. Henry Blanton DO Work Phone: [facility] 12-30-2024 12:58-0400 Respiratory rate 18 /min Dr. Henry Blanton DO Work Phone: [facility] 12-30-2024 12:58-0400 SaO2% (BldA) [Mass fraction] 94 % Dr. Henry Blanton DO Work Phone: [facility] 12-30-2024 12:58-0400 Systolic blood pressure 112 mm[Hg] Dr. Henry Blanton DO Work Phone: [facility] 09-30-2024 13:41-0400 Body height 170.[address] Henry Blanton DO Work Phone: [facility] 09-30-2024 13:41-0400 Body mass index (BMI) [Ratio] 32.4 kg/m2 Dr. Henry Blanton DO Work Phone: [facility] 09-30-2024 13:41-0400 Body temperature 98.2 [degF] Dr. Henry Blanton DO Work Phone: [facility] 09-30-2024 13:41-0400 Body weight 93.[address] Henry Blanton DO Work Phone: [facility] 09-30-2024 13:41-0400 Diastolic blood pressure 78 mm[Hg] Dr. Henry Blanton DO Work Phone: [facility] 09-30-2024 13:41-0400 Heart rate 78 /min Dr. Henry Blanton DO Work Phone: [facility] 09-30-2024 13:41-0400 Respiratory rate 18 /min Dr. Henry Blanton DO Work Phone: [facility] 09-30-2024 13:41-0400 SaO2% (BldA) [Mass fraction] 98 % Dr. Henry Blanton DO Work Phone: [facility] 09-30-2024 13:41-0400 Systolic blood pressure 124 mm[Hg] Dr. Henry Blanton DO Work Phone: [facility] 07-01-2024 13:21-0500 Body mass index (BMI) [Ratio] 31.4 kg/m2 Dr. Henry Blanton DO Work Phone: [facility] 07-01-2024 13:21-0500 Body temperature 97.7 [degF] Dr. Henry Blanton DO Work Phone: [facility] 07-01-2024 13:21-0500 Body weight 93.[address] Henry Blanton DO Work Phone: [facility] 07-01-2024 13:21-0500 Diastolic blood pressure 80 mm[Hg] Dr. Henry Blanton DO Work Phone: [facility] 07-01-2024 13:21-0500 Heart rate 106 /min Dr. Henry Blanton DO Work Phone: [facility] 07-01-2024 13:21-0500 Respiratory rate 16 /min Dr. Henry Blanton DO Work Phone: [facility] 07-01-2024 13:21-0500 SaO2% (BldA) [Mass fraction] 97 % Dr. Henry Blanton DO Work Phone: [facility] 07-01-2024 13:21-0500 Systolic blood pressure 122 mm[Hg] Dr. Henry Blanton DO Work Phone: [facility] 07-11-2022 10:21-0500 Body height 172.[address] Henry Blanton Work Phone: [facility] 07-11-2022 10:21-0500 Body mass index (BMI) [Ratio] 24.9 kg/m2 Dr. Henry Blanton Work Phone: [facility] 07-11-2022 10:21-0500 Body weight 74.[address] Henry Blanton Work Phone: [facility] 07-11-2022 10:21-0500 Diastolic blood pressure 84 mm[Hg] Dr. Henry Blanton Work Phone: [facility] 07-11-2022 10:21-0500 Heart rate 94 /min Dr. Henry Blanton Work Phone: [facility] 07-11-2022 10:21-0500 SaO2% (BldA) [Mass fraction] 94 % Dr. Henry Blanton Work Phone: [facility] 07-11-2022 10:21-0500 Systolic blood pressure 128 mm[Hg] Dr. Henry Blanton Work Phone: [facility] 06-21-2022 16:27-0500 Body mass index (BMI) [Ratio] 25 kg/m2 Dr. Henry Blanton Work Phone: [facility] 06-21-2022 16:27-0500 Body temperature 98.2 [degF] Dr. Henry Blanton Work Phone: [facility] 06-21-2022 16:27-0500 Body weight 74.[address] Henry Blanton Work Phone: [facility] 06-21-2022 16:27-0500 Diastolic blood pressure 86 mm[Hg] Dr. Henry Blanton Work Phone: [facility] 06-21-2022 16:27-0500 Heart rate 81 /min Dr. Henry Blanton Work Phone: [facility] 06-21-2022 16:27-0500 Respiratory rate 14 /min Dr. Henry Blanton Work Phone: [facility] 06-21-2022 16:27-0500 SaO2% (BldA) [Mass fraction] 97 % Dr. Henry Blanton Work Phone: [facility] 06-21-2022 16:27-0500 Systolic blood pressure 128 mm[Hg] Dr. Henry Blanton Work Phone: [facility] 04-19-2022 10:57-0400 Body height 172.[address] Henry Blanton Work Phone: [facility] Work Phone: 04-19-2022 10:57-0400 Body mass index (BMI) [Ratio] 25.2 kg/m2 Dr. Henry Blanton Work Phone: [facility] 04-19-2022 10:57-0400 Body temperature 97.5 [degF] Dr. Henry Blanton Work Phone: [facility] 04-19-2022 10:57-0400 Body weight 75.[address] Henry Blanton Work Phone: [facility] 04-19-2022 10:57-0400 Diastolic blood pressure 60 mm[Hg] Dr. Henry Blanton Work Phone: [facility] 04-19-2022 10:57-0400 Heart rate 89 /min Dr. Henry Blanton Work Phone: [facility] 04-19-2022 10:57-0400 Respiratory rate 14 /min Dr. Henry Blanton Work Phone: [facility] 04-19-2022 10:57-0400 SaO2% (BldA) [Mass fraction] 98 % Dr. Henry Blanton Work Phone: [facility] 04-19-2022 10:57-0400 Systolic blood pressure 112 mm[Hg] Dr. Henry Blanton Work Phone: [facility] 02-14-2022 11:53-0400 Diastolic blood pressure 70 mm[Hg] Dr. Henry Blanton Work Phone: [facility] Work Phone: 02-14-2022 11:53-0400 Heart rate 80 /min Dr. Henry Blanton Work Phone: [facility] Work Phone: 02-14-2022 11:53-0400 Respiratory rate 16 /min Dr. Henry Blanton Work Phone: [facility] Work Phone: 02-14-2022 11:53-0400 SaO2% (BldA) [Mass fraction] 98 % Dr. Henry Blanton Work Phone: [facility] Work Phone: 02-14-2022 11:53-0400 Systolic blood pressure 112 mm[Hg] Dr. Henry Blanton Work Phone: [facility] Work Phone: 02-14-2022 11:35-0400 Body temperature 97.2 [degF] Dr. Henry Blanton Work Phone: [facility] Work Phone: 02-14-2022 08:55-0400 Body height 172.[address] Henry Blanton Work Phone: [facility] Work Phone: 02-14-2022 08:55-0400 Body mass index (BMI) [Ratio] 25.8 kg/m2 Dr. Henry Blanton Work Phone: [facility] Work Phone: 02-14-2022 08:55-0400 Body weight [address] Henry Blanton Work Phone: [facility] Work Phone: 01-04-2022 15:39-0400 Body mass index (BMI) [Ratio] 26.3 kg/m2 Dr. Henry Blanton Work Phone: [facility] Work Phone: 01-04-2022 15:39-0400 Body temperature 98.1 [degF] Dr. Henry Blanton Work Phone: [facility] Work Phone: 01-04-2022 15:39-0400 Body weight 78.[address] Henry Blanton Work Phone: [facility] Work Phone: 01-04-2022 15:39-0400 Diastolic blood pressure 84 mm[Hg] Dr. Henry Blanton Work Phone: [facility] Work Phone: 01-04-2022 15:39-0400 Heart rate 92 /min Dr. Henry Blanton Work Phone: [facility] Work Phone: 01-04-2022 15:39-0400 Respiratory rate 18 /min Dr. Henry Blanton Work Phone: [facility] Work Phone: 01-04-2022 15:39-0400 SaO2% (BldA) [Mass fraction] 97 % Dr. Henry Blanton Work Phone: [facility] Work Phone: 01-04-2022 15:39-0400 Systolic blood pressure 120 mm[Hg] Dr. Henry Blanton Work Phone: [facility] Work Phone: 11-29-2021 09:15-0400 Body temperature 97.5 [degF] Dr. Henry Blanton Work Phone: [facility] Work Phone: 11-29-2021 09:15-0400 Diastolic blood pressure 81 mm[Hg] Dr. Henry Blanton Work Phone: [facility] Work Phone: 11-29-2021 09:15-0400 Heart rate 107 /min Dr. Henry Blanton Work Phone: [facility] Work Phone: 11-29-2021 09:15-0400 Respiratory rate 16 /min Dr. Henry Blanton Work Phone: [facility] Work Phone: 11-29-2021 09:15-0400 SaO2% (BldA) [Mass fraction] 92 % Dr. Henry Blanton Work Phone: [facility] Work Phone: 11-29-2021 09:15-0400 Systolic blood pressure 120 mm[Hg] Dr. Henry Blanton Work Phone: [facility] Work Phone: 11-29-2021 09:00-0400 Inhaled oxygen flow rate 2 L/min Dr. Henry Blanton Work Phone: [facility] Work Phone: 11-29-2021 06:34-0400 Body height 172.[address] Henry Blanton Work Phone: [facility] Work Phone: 11-29-2021 06:34-0400 Body mass index (BMI) [Ratio] 26.9 kg/m2 Dr. Henry Blanton Work Phone: [facility] Work Phone: 11-29-2021 06:34-0400 Body weight 80.[address] Henry Blanton Work Phone: [facility] Work Phone: 11-01-2021 11:19-0400 Body mass index (BMI) [Ratio] 27.5 kg/m2 Dr. Henry Blanton Work Phone: [facility] Work Phone: 11-01-2021 11:19-0400 Body temperature 97.6 [degF] Dr. Henry Blanton Work Phone: [facility] Work Phone: 11-01-2021 11:19-0400 Body weight 82.[address] Henry Blanton Work Phone: [facility] Work Phone: 11-01-2021 11:19-0400 Diastolic blood pressure 68 mm[Hg] Dr. Henry Blanton Work Phone: [facility] Work Phone: 11-01-2021 11:19-0400 Heart rate 103 /min Dr. Henry Blanton Work Phone: [facility] Work Phone: 11-01-2021 11:19-0400 Respiratory rate 16 /min Dr. Henry Blanton Work Phone: [facility] Work Phone: 11-01-2021 11:19-0400 SaO2% (BldA) [Mass fraction] 95 % Dr. Henry Blanton Work Phone: [facility] Work Phone: 11-01-2021 11:19-0400 Systolic blood pressure 110 mm[Hg] Dr. Henry Blanton Work Phone: [facility] Work Phone: 11-01-2021 11:19-0400 Body height 172.[address] Henry Blanton Work Phone: [facility] Work Phone: 11-01-2021 11:19-0400 Body mass index (BMI) [Ratio] 27.5 kg/m2 Dr. Henry Blanton Work Phone: [facility] Work Phone: 11-01-2021 11:19-0400 Body temperature 97.6 [degF] Dr. Henry Blanton Work Phone: [facility] Work Phone: 11-01-2021 11:19-0400 Body weight 82.[address] Henry Blanton Work Phone: [facility] Work Phone: 11-01-2021 11:19-0400 Diastolic blood pressure 68 mm[Hg] Dr. Henry Blanton Work Phone: [facility] Work Phone: 11-01-2021 11:19-0400 Heart rate 103 /min Dr. Henry Blanton Work Phone: [facility] Work Phone: 11-01-2021 11:19-0400 Respiratory rate 16 /min Dr. Henry Blanton Work Phone: [facility] Work Phone: 11-01-2021 11:19-0400 SaO2% (BldA) [Mass fraction] 95 % Dr. Henry Blanton Work Phone: [facility] Work Phone: 11-01-2021 11:19-0400 Systolic blood pressure 110 mm[Hg] Dr. Henry Blanton Work Phone: [facility] Work Phone: 09-14-2021 13:48-0500 Body temperature 96.7 [degF] Dr. Henry Blanton Work Phone: [facility] Work Phone: 09-14-2021 13:48-0500 Body weight [address] Henry Blanton Work Phone: [facility] Work Phone: 09-14-2021 13:48-0500 Diastolic blood pressure 74 mm[Hg] Dr. Henry Blanton Work Phone: [facility] Work Phone: 09-14-2021 13:48-0500 Heart rate 113 /min Dr. Henry Blanton Work Phone: [facility] Work Phone: 09-14-2021 13:48-0500 Respiratory rate 16 /min Dr. Henry Blanton Work Phone: [facility] Work Phone: 09-14-2021 13:48-0500 SaO2% (BldA) [Mass fraction] 98 % Dr. Henry Blanton Work Phone: [facility] Work Phone: 09-14-2021 13:48-0500 Systolic blood pressure 156 mm[Hg] Dr. Henry Blanton Work Phone: [facility] Work Phone: 07-21-2021 14:49-0500 Body height 172.[address] Henry Blanton Work Phone: [facility] Work Phone: 07-21-2021 14:49-0500 Body mass index (BMI) [Ratio] 29.2 kg/m2 Dr. Henry Blanton Work Phone: [facility] Work Phone: 07-21-2021 14:49-0500 Body temperature 98 [degF] Dr. Henry Blanton Work Phone: [facility] Work Phone: 07-21-2021 14:49-0500 Body weight 87.[address] Henry Blanton Work Phone: [facility] Work Phone: 07-21-2021 14:49-0500 Diastolic blood pressure 74 mm[Hg] Dr. Henry Blanton Work Phone: [facility] Work Phone: 07-21-2021 14:49-0500 Heart rate 89 /min Dr. Henry Blanton Work Phone: [facility] Work Phone: 07-21-2021 14:49-0500 Respiratory rate 14 /min Dr. Henry Blanton Work Phone: [facility] Work Phone: 07-21-2021 14:49-0500 SaO2% (BldA) [Mass fraction] 99 % Dr. Henry Blanton Work Phone: [facility] Work Phone: 07-21-2021 14:49-0500 Systolic blood pressure 120 mm[Hg] Dr. Henry Blanton Work Phone: [facility] Work Phone: 09-27-2020 09:52-0400 BMI (Body Mass Index) 29.65 kg/m2 [facility] 09-27-2020 09:52-0400 Body weight 88.45 kg [facility] 09-27-2020 09:52-0400 Height 172.7 cm [facility] 06-16-2020 15:17-0500 BMI (Body Mass Index) 29.65 kg/m2 [facility] 06-16-2020 15:17-0500 Body weight 88.45 kg [facility] 06-16-2020 15:17-0500 Height 172.7 cm [facility] 05-12-2020 14:15-0400 BMI (Body Mass Index) 29.65 kg/m2 [facility] 05-12-2020 14:15-0400 Body weight 88.45 kg [facility] 05-12-2020 14:15-0400 Height 172.7 cm [facility] Encounters Encounter Date Encounter Type Care Provider Facility Start: 03-31-2025 End: 03-31-[address] Henry Blanton DO Work Phone: [facility] Start: 03-31-2025 End: 03-31-[address] Henry Howe DO -[facility] Work Phone: Start: 12-30-2024 End: 12-30-[address] Henry Howe DO -[facility] Work Phone: Start: 12-30-2024 End: 12-30-[address] Henry Blanton DO Work Phone: [facility] Work Phone: Start: 10-06-2024 End: 10-06-[address] Henry Blanton DO Work Phone: [facility] Work Phone: Start: 10-06-2024 End: 10-06-[address] Henry Howe DO -[facility], [facility] Work Phone: Start: 10-06-2024 End: 10-06-2024 ambulatory Henry Blanton Facility:[facility] Start: 09-30-2024 End: 09-30-[address] Henry Howe DO -[facility] Work Phone: Start: 09-30-2024 End: 09-30-2024 ambulatory Henry Blanton Facility:[facility] Start: 07-01-2024 End: 07-01-[address] Henry Howe DO -[facility] Work Phone: Start: 07-01-2024 End: 07-01-2024 ambulatory Henry Blanton Facility:[facility] Start: 07-01-2024 End: 07-01-2024 ambulatory Henry Blanton Facility:[facility] Start: 04-01-2024 End: 04-01-2024 ambulatory Henry Blanton Facility:[facility] Start: 08-02-2022 End: 08-02-[address] Henry Blanton Work Phone: [facility] Work Phone: Start: 08-02-2022 End: 08-02-[address] Henry Blanton Work Phone: [facility], [facility] Start: 07-19-2022 End: 07-19-[address] Henry Blanton Work Phone: [facility] Work Phone: Start: 07-19-2022 End: 07-19-[address] [facility] Start: 07-14-2022 End: 07-14-[address] Henry Blanton Work Phone: [facility] Start: 07-11-2022 End: 07-11-[address] [facility] Bl[facility] Start: 07-11-2022 End: 07-11-[address] Henry Blanton Work Phone: [facility] Start: 06-21-2022 End: 06-21-[address] Henry Blanton Work Phone: [facility] Start: 05-17-2022 End: 05-17-[address] Henry Blanton Work Phone: [facility] Work Phone: Start: 05-17-2022 End: 05-17-[address] [facility] Bl[facility] Start: 05-05-2022 End: 05-05-[address] Henry Blanton Work Phone: [facility] Start: 04-19-2022 End: 04-19-[address] Henry Blanton Work Phone: [facility] Start: 04-12-2022 End: 04-12-[address] Henry Blanton Work Phone: [facility] Work Phone: Start: 04-12-2022 End: 04-12-[address] Henry Blanton Work Phone: [facility] Start: 04-10-2022 End: 04-10-[address] Henry Blanton Work Phone: [facility] Start: 03-16-2022 Patient encounter procedure Henry Blanton Work Phone: [facility] Work Phone: Start: 02-27-2022 End: 02-27-[address] Henry Blanton Work Phone: [facility] Start: 02-14-2022 Non-patient / Non-visit Dr. Henry Blanton Work Phone: [facility] Start: 02-14-2022 End: 02-14-2022 Admission to same day surgery center Dr. Henry Blanton Work Phone: [facility] Start: 02-06-2022 End: 02-06-[address] Henry Blanton Work Phone: [facility] Start: 02-01-2022 Patient encounter procedure Henry Blanton Work Phone: [facility] Work Phone: Start: 02-01-2022 [email or web address], Provider : Joan Mann, Status: Pen, Time: 9:15 AM Henry Blanton Work Phone: [facility] Work Phone: Start: 01-30-2022 Patient encounter procedure Henry Blanton Work Phone: [facility] Work Phone: Start: 01-27-2022 Patient encounter procedure Henry Blanton Work Phone: [facility] Work Phone: Start: 01-26-2022 End: 01-26-[address] Henry Blanton Work Phone: [facility] Start: 01-18-2022 End: 01-18-[address] Henry Blanton Work Phone: [facility] Start: 01-11-2022 Patient encounter procedure Henry Blanton Work Phone: [facility] Work Phone: Start: 01-06-2022 Patient encounter procedure Henry Blanton Work Phone: [facility] Work Phone: Start: 01-06-2022 PTFUADULT4, Provider : Joan Mann, Status: Pen, Time: 9:15 AM Henry Blanton Work Phone: [facility] Work Phone: Start: 01-04-2022 End: 01-04-[address] Henry Blanton Work Phone: [facility] Start: 01-04-2022 Patient encounter procedure Henry Blanton Work Phone: [facility] Work Phone: Start: 01-04-2022 PTFUADULT4, Provider : Joan Mann, Status: Pen, Time: 9:15 AM Henry Blanton Work Phone: [facility] Work Phone: Start: 12-30-2021 Patient encounter procedure Henry Blanton Work Phone: [facility] Work Phone: Start: 12-26-2021 Patient encounter procedure Henry Blanton Work Phone: [facility] Work Phone: Start: 12-23-2021 Patient encounter procedure Henry Blanton Work Phone: [facility] Work Phone: Start: 12-15-2021 End: 12-15-[address] Henry Blanton Work Phone: [facility] Start: 11-29-2021 Non-patient / Non-visit Dr. Henry Blanton Work Phone: [facility] Start: 11-29-2021 End: 11-29-2021 Admission to same day surgery center [facility] Blanton [facility] Start: 11-28-2021 End: 11-28-[address] Henry Blanton Work Phone: [facility] Start: 11-28-2021 Non-patient / Non-visit Dr. Henry Blanton Work Phone: [facility] Start: 11-21-2021 End: 11-21-[address] Henry Blanton Work Phone: [facility] Start: 11-18-2021 End: 11-18-[address] Henry Blanton Work Phone: [facility] Start: 11-16-2021 End: 11-16-[address] Henry Blanton Work Phone: [facility] Start: 11-11-2021 Patient encounter procedure Henry Blanton Work Phone: [facility] Work Phone: Start: 11-09-2021 Non-patient / Non-visit Dr. Henry Blanton Work Phone: [facility] Start: 11-09-2021 End: 11-09-[address] Henry Blanton Work Phone: [facility] Start: 11-07-2021 Patient encounter procedure Henry Blanton Work Phone: [facility] Work Phone: Start: 11-01-2021 End: 11-01-[address] Henry Blanton Work Phone: [facility] [place] Start: 10-26-2021 End: 10-26-[address] Henry Blanton Work Phone: [facility] Start: 10-24-2021 End: 10-24-[address] Henry Blanton Work Phone: [facility] Start: 10-20-2021 End: 10-20-[address] Henry Blanton Work Phone: [facility] Start: 10-17-2021 End: 10-17-[address] Henry Blanton Work Phone: [facility] Start: 10-12-2021 End: 10-12-[address] Henry Blanton Work Phone: [facility] Start: 09-26-2021 Patient encounter procedure Henry Blanton Work Phone: [facility] Work Phone: Start: 09-21-2021 End: 09-21-[address] Henry Blanton Work Phone: [facility] Start: 09-15-2021 End: 09-15-[address] Henry Blantno Work Phone: [facility], [place] Start: 09-14-2021 End: 09-14-[address] Henry Blanton Work Phone: [facility] Start: 09-14-2021 End: 09-14-[address] Henry Blanton Work Phone: [facility] Start: 09-12-2021 End: 09-12-[address] Henry Blanton Work Phone: [facility] Start: 09-12-2021 End: 09-12-[address] Henry Blanton Work Phone: [facility] Start: 07-22-2021 End: 07-22-[address] Henry Blanton Work Phone: [facility] [place] Start: 07-21-2021 End: 07-21-[address] Henry Blanton Work Phone: [facility] Start: 07-12-2021 End: 07-12-[address] Henry Blanton Work Phone: [facility] Start: 06-22-2021 End: 06-22-[address] Henry Blanton Work Phone: [facility] Start: 04-27-2021 Patient encounter procedure [facility] Blanton [facility] Work Phone: Start: 04-27-2021 PTFUADULT4, Provider : Melissa Rubio, Status: Pen, Time: 10:45 AM Henry Blanton Work Phone: [facility] Work Phone: Start: 04-25-2021 Patient encounter procedure Henry Blanton Work Phone: [facility] Work Phone: Start: 04-22-2021 Patient encounter procedure Henry Blanton Work Phone: [facility] Work Phone: Start: 04-22-2021 PTFUADULT4, Provider : Melissa Rubio, Status: Pen, Time: 11:30 AM Henry Blanton Work Phone: [facility] Work Phone: Start: 04-20-2021 Patient encounter procedure Henry Blanton Work Phone: [facility] Work Phone: Start: 04-15-2021 Patient encounter procedure Henry Blanton Work Phone: [facility] Work Phone: Start: 04-15-2021 PTFUADULT4, Provider : Joan Mann, Status: Pen, Time: 9:15 AM Henry Blanton Work Phone: [facility] Work Phone: Start: 04-13-2021 Patient encounter procedure Henry Blanton Work Phone: [facility] Work Phone: Start: 04-11-2021 Patient encounter procedure Henry Blanton Work Phone: [facility] Work Phone: Start: 04-08-2021 Patient encounter procedure Henry Blanton Work Phone: [facility] Work Phone: Start: 2021 Patient encounter procedure Henry Blanton Work Phone: [facility] Work Phone: Start: 09-27-2020 End: 09-27-2020 Patient encounter procedure GRADY AYALA [facility] Start: 09-27-2020 End: 09-27-2020 Postop follow up visit related to original px Grady Ayala Work Phone: [facility] Comment on above: Carpal tunnel syndro me of left wrist (Primary Dx); Tardy ulnar nerve palsy, left Start: 09-22-2020 End: 09-22-2020 Orders Only Vidhi Cloud Work Phone: [facility] Start: 08-11-2020 End: 08-11-2020 Patient encounter procedure GRADY AYALA [facility] Start: 07-27-2020 [facility] Start: 07-14-2020 End: 07-14-2020 Patient encounter procedure GRADY AYALA [facility] Start: 07-14-2020 End: 07-14-2020 Postop follow up visit related to original px Grady Ayala Work Phone: [facility] Comment on above: Carpal tunnel syndro me of left wrist (Primary Dx); Tardy ulnar nerve palsy, left; Mass of finger of left hand Start: 07-02-2020 End: 07-02-2020 Patient encounter procedure GRADY AYALA [facility] Start: 07-01-2020 Patient encounter procedure THELMAMADONNA MEYER [facility] Start: 06-16-2020 End: 06-16-2020 Patient encounter procedure GRADY AYALA [facility] Start: 06-16-2020 End: 06-16-2020 Office outpatient visit 25 minutes Grady Ayala Work Phone: [facility] Comment on above: Carpal tunnel syndro me of left wrist (Primary Dx); Tardy ulnar nerve palsy, left; Mass of finger of left hand Start: 06-03-2020 End: 06-03-2020 Patient encounter procedure GRADY AYALA [facility] Start: 06-03-2020 End: 06-03-2020 Patient encounter procedure Grady Ayala Work Phone: [facility] Comment on above: Carpal tunnel syndro me on left (Primary Dx); Tardy ulnar nerve palsy, left; Carpal tunnel syndrome of left wrist; Ulnar neuropathy at elbow, left Start: 05-12-2020 End: 05-16-2020 Patient encounter procedure GRADY AYALA [facility] Start: 05-12-2020 End: 05-12-2020 Office outpatient new 30 minutes Mike Plummer Work Phone: [facility] Comment on above: Tardy ulnar nerve pa lsy, left (Primary Dx); Left hand pain; Left elbow pain; Carpal tunnel syndrome of left wrist; Mass of finger of left hand Start: 04-07-2020 End: 04-07-2020 Patient encounter procedure LAUREN HUFF [facility] Start: 08-20-2019 Patient encounter procedure Melissa Rubio [facility] Work Phone: Start: 08-13-2019 Patient encounter procedure Joan Mann [facility] Work Phone: Start: 08-06-2019 Patient encounter procedure Joan Mann [facility] Work Phone: Start: 08-04-2019 Patient encounter procedure Joan Mann [facility] Work Phone: Start: 09-10-2018 End: 09-10-2018 Patient encounter procedure DARRIN FLORES [facility] Procedures Date Procedure Procedure Detail Performing Clinician Start: 10-06-2024 Plain x-ray of pelvi s and lower extremity Dr. Henry Blanton DO Work Phone: Start: 08-02-2022 Computed tomography of abdomen and pelvis with contrast Dr. Henry Blanton Work Phone: Start: 07-14-[address] Henry Blanton Work Phone: Start: 02-14-[address] Henry Blanton Work Phone: Start: 01-26-2022 Radiography of thora cic spine Dr. Henry Blanton Work Phone: Start: 01-26-2022 X-ray of cervical spine Dr. Henry Blanton Work Phone: Start: 11-29-2021 Repair of musculoten dinous cuff of shoulder Dr. Henry Blanton Work Phone: Start: 11-28-2021 End: 11-28-[address] Henry Blanton Work Phone: Start: 11-18-2021 X-ray of lumbar spin e, two or three views Dr. Henry Blanton Work Phone: Start: 10-26-2021 MRI of lumbar spine Dr. Henry Blanton Work Phone: Start: 10-20-2021 MRI of joint of lowe r extremity Dr. Henry Blanton Work Phone: Start: 10-12-2021 MRI of joint of lowe r extremity Dr. Henry Blanton Work Phone: Start: 09-21-2021 Radiologic examinati on of knee Dr. Henry Blanton Work Phone: Start: 06-22-2021 Plain X-ray of shoulder Dr. Henry Blanton Work Phone: History of decompres cheli of median nerve History of carpal tunnel release Dr. Henry Blanton Work Phone: Comment on above: LEFT and left elbow surgery History of operative procedure on knee H/O arthroscopic knee surgery Dr. Henry Blanton Work Phone: Comment on above: Left History of tonsillectomy History of tonsillectomy Dr. Henry Blanton Work Phone: Viral antigen assay Dr. Александр Blanton Work Phone: Plan of Treatment Date Care Activity Detail Author Start: 03-31-2025 CBC W Auto Different ial panel - [facility] Start: 03-31-2025 Comprehensive metabo lic 2000 panel - Serum or Plasma [facility] Start: 04-12-2022 IgE [Units/volume] i n Serum or Plasma [facility] Work Phone: Start: 04-12-2022 Measurement of Borre fidelia burgdorferi antibody [facility] Work Phone: Start: 04-12-2022 Serum immunofixation [facility] Work Phone: Start: 04-12-2022 [facility] Work Phone: Start: 02-14-2022 Anes open/surg arthr oscopic proc knee joint nos ANESTH KNEE JOINT SURGERY [facility] Work Phone: Start: 02-14-2022 Arthrs knee w/menisc ectomy med&lat w/shaving KNEE ARTHROSCOPY/SURGERY [facility] Work Phone: Start: 02-14-2022 Gait training procedure [facility] Work Phone: Start: 02-14-2022 Patient discharge [facility] Work Phone: Start: 02-14-2022 Application of ice c ollar, cap or bag [facility] Work Phone: Start: 02-14-2022 Catheterization of vein [facility] Work Phone: Start: 02-14-2022 Elevation of affecte d extremity [facility] Work Phone: Start: 02-14-2022 Following clinical p athway protocol [facility] Work Phone: Start: 02-14-2022 Procedure discontinued [facility] Work Phone: Start: 02-14-2022 Taking patient vital signs [facility] Work Phone: Start: 02-14-2022 Vital signs measurements [facility] Work Phone: Start: 02-14-2022 End: 02-14-2022 [facility] Work Phone: Start: 02-14-2022 Medication education [facility] Work Phone: Start: 02-01-2022 PTFUADULT4, Provider : Joan Mann, Status: Pen, Time: 9:15 AM PTFUADULT4, Provider: Joan Mann, Status: Pen, Time: 9:15 AM [facility] Work Phone: Start: 01-30-2022 PTRECHECKA, Provider : Laurie Tapia, Status: Pen, Time: 9:30 AM PTRECHECKA, Provider: Laurie Tapia, Status: Pen, Time: 9:30 AM [facility] Work Phone: Start: 01-27-2022 PTFUADULT4, Provider : Joan Mann, Status: Pen, Time: 9:15 AM PTFUADULT4, Provider: Joan Mann, Status: Pen, Time: 9:15 AM [facility] Work Phone: Start: 01-25-2022 PTFUADULT4, Provider : Joan Mann, Status: Pen, Time: 9:15 AM PTFUADULT4, Provider: Joan Mann, Status: Pen, Time: 9:15 AM [facility] Work Phone: Start: 01-20-2022 PTFUADULT4, Provider : Joan Mann, Status: Pen, Time: 9:15 AM PTFUADULT4, Provider: Joan Mann, Status: Pen, Time: 9:15 AM [facility] Work Phone: Start: 01-18-2022 PTFUADULT4, Provider : Joan Mann, Status: Pen, Time: 9:15 AM PTFUADULT4, Provider: Joan Mann, Status: Pen, Time: 9:15 AM [facility] Work Phone: Start: 01-13-2022 PTFUADULT4, Provider : Joan Mann, Status: Pen, Time: 9:15 AM PTFUADULT4, Provider: Joan Mann, Status: Pen, Time: 9:15 AM [facility] Start: 01-11-2022 PTFUADULT4, Provider : Joan Mann, Status: Pen, Time: 9:15 AM PTFUADULT4, Provider: Joan Mann, Status: Pen, Time: 9:15 AM [facility] Work Phone: Start: 01-06-2022 PTFUADULT4, Provider : Joan Mann, Status: Pen, Time: 9:15 AM PTFUADULT4, Provider: Joan Mann, Status: Pen, Time: 9:15 AM [facility] Work Phone: Start: 01-04-2022 PTFUADULT4, Provider : Joan Mann, Status: Pen, Time: 9:15 AM PTFUADULT4, Provider: Joan Mann, Status: Pen, Time: 9:15 AM [facility] Work [facility]: Start: 12-30-2021 PTFUADULT4, Provider : Joan Mann, Status: Pen, Time: 9:15 AM PTFUADULT4, Provider: Joan Mann, Status: Pen, Time: 9:15 AM [facility] Work Phone: Start: 11-29-2021 Anes arthrs humeral h/n strnclav & shoulder nos ANESTH SURGERY OF SHOULDER [facility] Work Phone: Start: 11-29-2021 Arthroscopy shoulder w/coracoacrm ligmnt release MICHAEL ARTHRS SRG DECOMPRESSION [facility] Work Phone: Start: 11-29-2021 Injection aa&/strd b rachial plexus NJX AA&/STRD BRACH PLEXUS [facility] Work Phone: Start: 11-29-2021 Application of ice c ollar, cap or bag [facility] Work Phone: Start: 11-29-2021 Catheterization of vein [facility] Work Phone: Start: 11-29-2021 Following clinical p athway protocol [facility] Work Phone: Start: 11-29-2021 Patient discharge [facility] Work Phone: Start: 11-29-2021 Procedure discontinued [facility] Work Phone: Start: 11-29-2021 Taking patient vital signs [facility] Work Phone: Start: 11-29-2021 Vital signs measurements [facility] Work Phone: Start: 11-29-2021 [facility] Work Phone: Start: 11-29-2021 Medication education [facility] Work Phone: Start: 11-23-2021 Electrocardiographic procedure [facility] Work Phone: Start: 11-18-2021 Patient referral [facility] Work Phone: Start: 09-14-2021 Patient referral [facility] Work Phone: Start: 04-27-2021 PTFUADULT4, Provider : Melissa Rubio, Status: Pen, Time: 10:45 AM PTFUADULT4, Provider: Melissa Rubio, Status: Pen, Time: 10:45 AM [facility] Work [facility]: Start: 04-25-2021 PTRECHECKSilva, Provider : Laurie Tapia, Status: Pen, Time: 9:30 AM PTRECHMARTY, Provider: Laurie Tapia, Status: Pen, Time: 9:30 AM [facility] Start: 04-22-2021 PTFUADULT4, Provider : Melissa Rubio, Status: Pen, Time: 11:30 AM PTFUADULT4, Provider: Melissa Rubio, Status: Pen, Time: 11:30 AM [facility] Work Phone: Start: 04-22-2021 PTFUADULT4, Provider : Melissa Rubio, Status: Pen, Time: 10:00 AM PTFUADULT4, Provider: Melissa Rubio, Status: Pen, Time: 10:00 AM [facility] Work Phone: Start: 04-20-2021 PTFUADULT4, Provider : Melissa Rubio, Status: Pen, Time: 10:45 AM PTFUADULT4, Provider: Melsisa Rubio, Status: Pen, Time: 10:45 AM [facility] Work Phone: Start: 04-15-2021 PTFUADULT4, Provider : Joan Mann, Status: Pen, Time: 9:15 AM PTFUADULT4, Provider: Joan Mann, Status: Pen, Time: 9:15 AM [facility] Work Phone: Start: 04-11-2021 PTFUADULT4, Provider : Laurie Tapia, Status: Pen, Time: 9:00 AM PTFUADULT4, Provider: Laurie Tapia, Status: Pen, Time: 9:00 AM [facility] Work Phone: Start: 09-27-2020 End: 09-27-2020 Follow-Up 09/27/2020 Follow-Up Sports Grady Chong MD [address] [place] [address] [phone] [facility] Start: 08-11-2020 End: 08-11-2020 Follow-Up 08/11/2020 Follow-Up Sports Grady Chong MD [address] [place] [address] [phone] [facility] Start: 07-14-2020 End: 07-14-2020 Follow-Up 07/14/2020 Follow-Up Sports Medicine Grady Ayala MD [address] [place] [address] [phone] [facility] Start: 03-16-2020 Influenza vaccination given Se quential Influenza Vaccine (#1) [facility] Start: 2018 Administration of he rpes zoster vaccine Zoster Vaccines (1 of 2) [facility] Start: 2018 Screening for malign ant neoplasm of colon [facility] Start: 1986 Hepatitis C antibody , confirmatory test Hepatitis C Screening [facility] Start: 1984 COVID-19 Vaccine (1 of 2) COVI D-19 Vaccine (1 of 2) [facility] Start: 1983 HIV screening HIV Screening [facility] Start: 1980 Adolescent depressio n screening assessment Depression Screening (PHQ9) [facility] Start: 1971 History and physical examination, annual for health maintenance Wellness Visit [facility] Start: 1968 Prostate specific an tigen measurement PSA Level [facility] Start: 1968 Tetanus vaccination Tetanus: Every 1 0yrs [facility] Alanine aminotransfe rase [Enzymatic activity/volume] in Serum or Plasma [facility] Albumin [Mass/volume ] in Serum or Plasma [facility] Albumin [Moles/volum e] in Serum or Plasma [facility] Work Phone: Albumin/Globulin ratio [facility] Work Phone: Alkaline phosphatase [Enzymatic activity/volume] in Serum or Plasma [facility] Anion gap in Serum or Plasma [facility] Bilirubin, total measurement [facility] BUN/Creatinine ratio [facility] Calcium [Mass/volume ] in Serum or Plasma [facility] Carbon dioxide, tota l [Moles/volume] in Central venous blood [facility] Creatinine [Mass/vol ume] in Serum or Plasma [facility] End: 05-12-2021 Electromyography EMG: Neurology Routine Tardy ulnar nerve palsy, left Carpal tunnel syndrome of left wrist 1 Occurrences starting 05/12/2020 until 05/12/2021 [facility] Comment on above: 1 Occurrences starti ng 05/12/2020 until 05/12/2021 Electrophoresis: [id number] [facility] Work Phone: Electrophoresis: more ma globulin [facility] Work Phone: Erythrocyte mean cor puscular volume determination [facility] Globulin measurement [facility] Work Phone: Glucose [Mass/volume ] in Serum or Plasma [facility] Hematocrit [Volume F raction] of Blood [facility] Hemoglobin [Mass/vol ume] in Blood [facility] IgA [Mass/volume] in Serum or Plasma [facility] Work Phone: IgE [Units/volume] i n Serum or Plasma [facility] Work Phone: IgG [Mass/volume] in Serum or Plasma [facility] Work Phone: IgM [Mass/volume] in Serum or Plasma [facility] Work Phone: Laboratory data interpretation [facility] Work Phone: Leukocytes [#/volume ] in Blood [facility] Mean corpuscular hem oglobin concentration determination [facility] Mean corpuscular hem oglobin determination [facility] Measurement of Borre fidelia burgdorferi antibody [facility] Work Phone: Measurement of renal function [facility] End: 05-12-2021 Nerve conduction test Nerve conduction test Neurology Routine Tardy ulnar nerve palsy, left Carpal tunnel syndrome of left wrist 1 Occurrences starting 05/12/2020 until 05/12/2021 [facility] Comment on above: 1 Occurrences starti ng 05/12/2020 until 05/12/2021 Neutrophil count [facility] Neutrophil cytoplasm ic Ab.classic [Units/volume] in Serum [facility] Work Phone: Neutrophil percent differential count [facility] P-ANCA measurement [facility] Work Phone: Patient referral [facility] Work Phone: Platelets [#/volume] in Blood [facility] Potassium measurement [facility] Protein electrophore sis panel - Serum or Plasma [facility] Work Phone: Red blood cell count [facility] Red cell distributio n width determination [facility] Serum chloride measurement [facility] Serum protein electrophoresis [facility] Work Phone: Sodium measurement [facility] Total protein measurement [facility] Urea nitrogen [Mass/ volume] in Serum or Plasma [facility] Work Phone: [facility] NEGATED: Highlighted row has been ruled out! Planned Goals not documented [facility] Work Phone: Payers Date Payer Category Payer Self-pay [id number] 2024 Medicare [id number] 2019 Medicaid [id number] 2019 Medicaid [employer] [facility] MEDICAID [employer] MEDICAID [id number] 2019-Present [id number] 2003 Unknown [id number] 1968 Unknown [id number] [id number] 1968 Unknown [id number] 2.840.1.182473.3.579.2.651 1968 Unknown [id number] 2.16840.1.523328.3.579.2.903 1968 Unknown [id number] 2.16.840.1.339510.3.579.2.903 1968 Unknown [id number] 2.16.840.1.674921.3.579.2.903 1968 Unknown [id number] 2.16.840.1.366788.3.579.2.90 1968 Unknown [id number] 2.16.840.1.706638.3.579.2.903 1968 Unknown [id number] 2.16.840.1.382594.3.579.2.90 1968 Unknown [id number] 2.16.840.1.639249.3.579.2.90 1968 Unknown [id number] 2.16.840.1.878022.3.579.2. 1968 Unknown [id number] 2.16840.1.430466.3.579.2. 1968 Unknown [id number] 2.840.1.962024.3.579.2. 1968 Unknown [id number] 2.16840.1.213525.3.579.2.903 Unknown [id number] Unknown [employer] Unknown [id number] [id number] Unknown [id number] 2.16840.1.571858.3.579.2.462 Unknown [id number] 2.840.1.762302.3.579.2.462 Unknown [id number] 2.16840.1.542390.3.579.2.462 Unknown [id number] 2.840.1.521888.3.579.2.462 Unknown [id number] [id number] Social History Date Type Detail Facility Assertion Unknown if ever smoked [facility] Work Phone: Start: 05-12-2020 End: 12-30-2024 Tobacco smoking status NDIS Current every day smoker [facility] Start: 05-12-2020 End: 09-27-2020 Tobacco use and exposure Never used [facility] Start: 05-12-2020 End: 09-27-2020 Alcohol intake Current drinker of alcohol (finding) [facility] Sex Assigned At Not on file [place] [facility] Exposure to SARS-CoV -2 (event) Not sure [facility] Start: 10-17-2021 End: 07-11-2022 Tobacco smoking status NHIS Unknown if ever smoked [facility] Start: 1970 Sex Assigned At Male [facility] Start: 10-12-2024 Sex Male (finding) [facility] Goals Date Patient Goal Desired Activity /State Functional Status Date Assessment Result Facility NEGATED: Highlighted row Functional performance Functional status health issues are not documented Disease [facility] [address] Work Phone: Mental Status Date Assessment Result Facility 02-14-2022 Cognitive function Level Of Cons ciousness Sedated [facility] Work Phone: 02-14-2022 Cognitive function Voice/Name [facility] Work Phone: 11-29-2021 Cognitive function Voice/Name [facility] Work Phone: NEGATED: Highlighted row Cognitive function [Interpretation] Cognitive status health issues are not documented Disease [address] Work Phone: Clinical Notes 06-30-2020 to 03-31-2025 Note Date & Type Note Facility 03-31-2025 Progress note [facility] 03-31-2025 Progress note Note Date/Time March 31, 2025 1:52pm [facility] [address] [place] [address] [place] [address] OFFICE VISIT Date of Service: 03/31/25 MR#: [id number] Acct: [id number] Name: SARAN HARRISON Rep #: [id number] : 1970 Provider: Dr. Александр Blanton, DO Age/Sex: 54/M Location: [facility] Status: Signed Intake Vital Signs 12/30/24 12:58 03/31/25 13:14 Height 5 ft 7 in 5 ft 7 in Weight: 183 lb 176 lb 4 oz BMI 28.6 27.6 BP 112/74 128/78 H Blood Pressure Location Lt brachial Lt brachial Position Sitting Sitting Respiration 18 16 Pulse 100 117 H Pulse Source Monitor Monitor Temp 99.4 F H 97.1 F L Temp Source Temporal Temporal Pulse Oximetry (%) 94 97 Oxygen Delivery Method room air room air Intake Visit Reasons: 3 M FU Chief Complaint: fu Folder And Notcher Required: No Accompanied by: Self Is patient in pain?: Yes (right hip and neck ) Pain scale (1-10): 7 Allergies No Known Allergies Allergy (Verified 03/31/25 13:11) Medications ?Medication ?Instructions ?Recorded ?Confirmed ?Type acetaminophen 500 mg capsule 2,000 mg PO Q6H PRN 12/3003/31/25 History oxycodone-acetaminophen 5 mg-325 1 tab PO Q6H PRN pain 30 days #120 03/03/25 03/31/25 Rx mg tablet (Percocet) tabs cyclobenzaprine 10 mg tablet 10 mg PO TID #90 TABLETS 03/13/25 03/31/25 Rx oxycodone 10 mg tablet 10 mg PO Q8H PRN pain 30 day s #90 03/24/25 03/31/25 Rx tabs Nurse's Note: neck pain is 10/10 right hip pain 7/10 on pain scale PFSH Medical History Night sweats Back pain Smoker Irritable bowel syndrome with diarrhea Wears glasses Wears dentures Wears partial dentures Depression Alcohol use Marijuana use Arthritis Injury of back Migraine headache Injury of head and neck History of IBS History of Crohn's disease Difficulty swallowing Gastric reflux Former smoker Leg cramps History of pain when walking History of edema Acute Crohn's disease Chronic headaches Arthritis Chronic neck pain IBS (irritable bowel syndrome) Chronic pain DISH (diffuse idiopathic skeletal hyperostosis) Crohn's disease Carpal tunnel syndrome Surgical History H/O right knee surgery History of esophagogastroduodenoscopy (EGD) H/O arthroscopic knee surgery History of colonoscopy History of tonsillectomy History of carpal tunnel release Family History Father Parkinson disease Myocardial infarction, Onset Age: 60 Melanoma CVA (cerebral vascular accident) Dementia Brother Myocardial infarction, Onset Age: 51 Hypertension Hyperlipemia Mother Thyroid disorder Other Colon cancer Social History household members: other details: son housing: house Smoking Status: Current every day smoker tobacco type: cigarettes Tobacco: How many years used: 40 alcohol intake: former year quit: 2023 substance use type: marijuana caffeine: Yes (2) Type: coffee Number of servings: 2 what type of physical activity do you participate in: none do you feel safe at home: Yes HPI HPI Chief Complaint: fu Details: SARAN HARRISON, is a 54 M who presents to the office today for a follow-up appointment so he can be in compliance with his chronic narcotic administration. His neck and back pain are persistent. He says he gets relatively temporary relief from the medications he takes. He has seen multiple surgeons and is not a surgical candidate, or candidate for any pain clinic procedures. He does complain of a reoccurring rash on his forearms. ROS Const Constitutional: No body ache, excessive sweating, fatigue, fever(s), frequent falls, headache(s), snoring, weakness, weight change, sleep problems or change in appetite Eyes Eyes: No blurry vision, change in vision, eye pain or Light sensitivity ENT ENT: No abnormal hearing, ear or mastoid pain, tinnitus, nasal congestion, headache(s), neck pain or sore throat Resp Respiratory: No cough, shortness of breath, snoring or wheezing Cardio Cardiology: No chest pain at rest, chest pain with exertion, excessive sweating,shortness of breath, dyspnea on exertion, lightheadedness, orthopnea or palpitations Gastro GI: No abdominal pain, change in bowel habits, constipation, cramping, diarrhea,nausea/dyspepsia or vomiting Genitourinary Male: No burning urination, painful urination, urinary incontinence, urinary frequency or blood in urine Musc Musculoskeletal: No abnormal gait, joint pain, back pain, limited range of motion, neck pain, numbness, stiffness, tingling or Arthritis Skin Skin: No dry skin, redness, lesions, itchy eyes, rash or wounds Neuro Neurology: No abnormal gait, abnormal hearing, abnormal speech, dizziness, weakness, frequent falls, headache(s), memory loss, numbness or tingling Psych Psychiatric: No anxiety, No change in appetite, No depression, No memory loss and No Thoughts of harming yourself/Others Endo Endocrine: No cold intolerance, excessive sweating, fatigue, flushing, heat intolerance, increased thirst/drinking, increased hunger or weight change Aller/Imm Allergy/Immunologic: No itchy eyes, seasonal allergy symptoms, hives or wheezing Shakeel/Lymp Hematologic/Lymphatic: No easy bleeding, easy bruising or enlarged lymph nodes Exam Const General: cooperative and no acute distress Nutritional Appearance: average body habitus [facility] Head: normal to inspection Ears: hearing grossly normal bilaterally and hearing grossly impaired on the left Nose: external nose normal Face and sinus: normal facial exam Mouth: oral mucosae normal Eyes General: appearance normal, both eyes and all related structures Neck Neck: limited ROM and other (Very significant limitation and rotation to the left.) Thyroid: thyroid normal Lymphatic: no lymphadenopathy noted Chest Chest palpation & inspection: normal inspection of the chest Resp Effort & Inspection: normal respiratory effort Auscultation: Bilateral: Clear to Auscultation Cardio Rate: regular rate Rhythm: regular rhythm Musc Musculoskeletal: Yes joint tenderness and decreased range of motion Cervical Spine: cervical ROM abnormal Thoracic/Lumbar Spine: straight leg raise negative bilaterally, kyphosis and thoracic spinal tenderness Skin General: purpura (Both forearms. 2 small patches. He says they are recurrent.) Neuro General: patient alert Cranial Nerves: CN's II-XI intact bilaterally Cognition: normal cognition Gait: normal gait Motor: muscle tone normal throughout Extrem General: normal to inspection Psych Appearance: grossly normal Thought Process: normal Thought Content: normal Judgment: judgment good Coding Level of Care Code Off vis,est,level 3 Diagnoses Weight loss R63.4 Purpura D69.2 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 M48.13 Assessment and Plan Assessment and Plan (1) Weight loss: Status: Chronic Plan: Patient continues to lose weight. He does not complain of any new urinary or bowel symptoms. He says his appetite is not as good as it used to be. At 1 point in his life he was about 300 pounds. (2) Purpura: Status: Acute Plan: I will get a CBC but the rash does not look worrisome to me. (3) 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: Status: Acute Plan: Pain is rather severe and the stiffness is is very significant. He has almost no flexion and extension of the cervical spine and very little rotation and sidebending. Orders: Orders CBC W/Diff, Automated Today D69.2 - Other nonthrombocytopenic purpura Comprehensive Metabolic Profil Today R63.4 - Abnormal weight loss Plan Details Goals & Barriers: Goals Improve ROM Decrease pain Improve sleeping Barriers DISH Scoliosis multiple MVAs Follow Up: 3 Months 03/31/25 1352 <Electronically signed by Henry funez DO> Date _ Henry Blanton DO Cosigner Signature: Date (if applicable) CC: ~ [facility] Work Phone: 1(112) 900-657006-17-2025 Evaluation note* Diagnosis Onset Date Resolution Status Admit Date Cervical pain acute December 30, 2024 12:44pm Chronic insomnia chronic December 12:44pm Depression chronic December 30 12:44pm DISH (diffuse idiopathic skeletal hyperostosis) chronic December 12:44pm 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 acute March 31, 2025 1:11pm Purpura acute March 1:11pm Weight loss chronic March 1:11pm [facility] Work Phone: 1(740) 761-510903-24-2025 Radiology Diagnostic study note [facility] Imaging Services [address] [place] [address] HIP, UNI W/ Pelvis 2-3 Views MR#: [id number] Acct: [id number] Name: SARAN HARRISON Rep #: [id number] : 1970 M 54 From: Dariana Rodriguez MD PCP: Dr. Henry Blanton, Status: RE G CLI Study:HIP, UNI W/ Pelvis 2-3 Views Date of Ex am: 10/06/24 Exam# [id number] Ordering Dr: Do renée Blanton DO EXAM: XR Right Hip With Pelvis When Performed, 2 or 3 Views CLINICAL INDICATION: HIP PAIN TECHNIQUE: Two or three views of the right hip with pelvis when performed. COMPARISON: No relevant prior studies available. FINDINGS: BONES/JOINTS: Mild degenerative change of the right hip joint. No acute fracture. No dislocation. SOFT TISSUES: Unremarkable. RAD/HIP, UNI W/ Pelvis 2-3 Views IMPRESSION: Degenerative changes as above. Reading [facility] CC: Dr. Henry Blanton DO ~ [facility]: Signed [facility] [facility]03-18-2025 Evaluation note* Diagnosis Onset Date Resolution Status Admit Date 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 acute September 30, 2024 1:30pm Hip pain, right acute September 1:30pm Cervical pain acute December 30, 2024 12:44pm Chronic insomnia chronic December 12:44pm Depression chronic December 30 12:44pm DISH (diffuse idiopathic ske letal hyperostosis) chronic December 30, 2024 12:44pm [facility] Work Phone: 1(480) 321-196712-17-2024 Evaluation note* Diagnosis Onset Date Resolution Status Admit Date Crohn's disease acute July 01, 2024 1:14pm 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 acute July 01, 024 1:14pm Lumbar radiculopathy acute Dece [id number] 1:14pm Other acute postprocedural pain acut e July 01, 2024 1:14pm Tobacco abuse acute July [id number] 1:14pm 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 acute September 30, 2024 1:30pm Hip pain, right acute September 1:30pm [facility] Work Phone: [phone]) 245-500512-16-2020 NotePROCEDURE DETAILS Preoperative Diagnosis: 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 L CTR, MASS L MIDDLE FINGER EXCISION, L ULNAR NEVER NEUROLYSIS @ ELBOW 2. null Anesthesia: Mike White Estimated Blood Loss: 0 Findings: Probable ganglion cyst left middle finger Specimens(s) Collected: yes, Mobile ganglion cyst left middle finger Operative Report: Patient was taken to the operating room and placed in the supine position given adequate intravenous Xylocaine block and the skin of the left upper extremity was prepped and draped in usual sterile fashion. I made an incision starting ulnar to the palmaris longus tendon curving along the thenar crease through the skin and subcutaneous tissue sharply. I identified the transverse carpal ligament. I undermined the skin proximal to the wrist crease and distally well past the incision and then carefully cut down through the ulnar border of the transverse carpal ligament. I cut the distal fascia the forearm and dissected distally to the arcade. I made sure the median nerve was intact. The nerve had mild compression and I performed a limited neurolysis. I irrigated the wounds and closed the skin with 5-0 horizontal nylon mattress sutures. The wounds were dressed sterilely and the patient was taken awakening with stable vital signs to the recovery room. I then made a incision at the base of the middle finger over the small mass that I did estimate 3 to 4 mm in size raised the skin flap and identified the mass which looked very much like a ganglion cyst and then excised the ganglion cyst protecting the neurovascular bundle in the tendon. The wounds were irrigated and the skin closed with 5-0 nylon. I then made an incision over the medial epicondyle through the skin and subcutaneous tissue sharply with a knife cautery was used for hemostasis I protected the cutaneous nerves and then identified the ulnar nerve and performed a neurolysis of the ulnar nerve it was quite sensitive. It had moderate constriction Icut the fascia proximally and then distally as it went into the muscle and made sure the ulnar nerve was totally freed.. I then remove the periosteum over the medial epicondyle and performed a partial medial epicondylectomy taking off the posterior portion of the further decompress the ulnar nerve. I then irrigated the wounds put bone wax in the bone closed the periosteum over the epicondyle and then closed the subcutaneous tissues with 2-0 Vicryl and the skin with nylon. Wounds were all dressed sterilely and the patient taken awakening with stable vital signs to the recovery room. The ulnar nerve was free and uninjured at the time of closure. Note Recipients: Grady Ayala MD - [id number] [PREFERRED] Signatures/Attestation: Note Completion: Attending AttestationI performed the procedure without a resident Electronic Signatures: Grady Ayala) (Signed 30-Jun-2020 11:28) Authored: Post-Operative Note, Chart Review, Note Completion Last Updated: 30-Jun-2020 11:28 by Grady Ayala)[facility]12-16-2020 NoteHistory & Physical Reviewed: I have reviewed the History and Physical dated: 16-Jun-2020 History and Physical reviewed and relevant findings noted. Patient examined to review pertinent physical findings.: No significant changes Home Medications Reviewed: no changes noted Allergies Reviewed: no changes noted ERAS (Enhanced Recovery After Surgery): ERAS Patient: no Consent: COVID-19 Consent: COVID-19 Risk ConsentSurgeon has reviewed [place] risks related to the risk of andres COVID-19 and if they contract COVID-19 what the risks are. Signatures/Attestation: Note Completion: Attending Provider Inpatient Certification StatementObservation patient/other outpatient visits Electronic Signatures: Grady Ayala) (Signed 30-Jun-2020 09:48) Authored: History & Physical Reviewed, ERAS, Consent, Note Completion Last Updated: 30-Jun-2020 09:48 by Grady Ayala)[facility] Diagnosis Onset Date Resolution Status Bilateral biceps tendonitis acute Impingement syndrome of both shoulders acute Kyphosis (acquired) (postural) acute Irritable bowel syndrome with diarrhea acute Neutrophilic leukocytosis ac constance Bilateral biceps tendonitis acute Impingement syndrome of both shoulders acute Kyphosis (acquired) (postural) acute Left shoulder pain acute Right shoulder pain acute Irritable bowel syndrome with diarrhea acute Spondylosis of cervical carolina on without myelopathy or radiculopathy acute Chronic instability of knee, left knee acute Night sweats acute Left knee DJD acute Mechanical pain of left knee acute Mechanical pain of right knee acute Right knee DJD acute Tobacco abuse acute Biceps tendinitis of right shoulder acute Impingement syndrome of right shoulder acute [facility] Work Phone: Evaluation note* Diagnosis Onset Date Resolution Status Irritable bowel syndrome with diarrhea acute Neutrophilic leukocytosis ac constance Bilateral biceps tendonitis acute Impingement syndrome of both shoulders acute Kyphosis (acquired) (postural) acute Left shoulder pain acute Right shoulder pain acute Irritable bowel syndrome with diarrhea acute Spondylosis of cervical carolina on without myelopathy or radiculopathy acute Chronic instability of knee, left knee acute Night sweats acute Left knee DJD acute Mechanical pain of left knee acute Mechanical pain of right knee acute Right knee DJD acute Tobacco abuse acute Biceps tendinitis of right shoulder acute Impingement syndrome of right shoulder acute Lumbar radiculopathy acute [facility] Work Phone: Evaluation note* Diagnosis Onset Date Resolution Status Irritable bowel syndrome with diarrhea acute Neutrophilic leukocytosis ac constance Bilateral biceps tendonitis acute Impingement syndrome of both shoulders acute Kyphosis (acquired) (postural) acute Left shoulder pain acute Right shoulder pain acute Irritable bowel syndrome with diarrhea acute Spondylosis of cervical carolina on without myelopathy or radiculopathy acute Chronic instability of knee, left knee acute Night sweats acute Left knee DJD acute Mechanical pain of left knee acute Mechanical pain of right knee acute Right knee DJD acute Tobacco abuse acute Biceps tendinitis of right shoulder acute Impingement syndrome of right shoulder acute Lumbar radiculopathy acute Night sweats acute [facility] Work Phone: Evaluation note* Diagnosis Onset Date Resolution Status Neutrophilic leukocytosis ac constance Bilateral biceps tendonitis acute Impingement syndrome of both shoulders acute Kyphosis (acquired) (postural) acute Left shoulder pain acute Right shoulder pain acute Irritable bowel syndrome with diarrhea acute Spondylosis of cervical carolina on without myelopathy or radiculopathy acute Chronic instability of knee, left knee acute Night sweats acute Left knee DJD acute Mechanical pain of left knee acute Mechanical pain of right knee acute Right knee DJD acute Tobacco abuse acute Biceps tendinitis of right shoulder acute Impingement syndrome of right shoulder acute Lumbar radiculopathy acute Night sweats acute Left knee DJD acute [facility] Work Phone: Evaluation note* Diagnosis Onset Date Resolution Status Bilateral biceps tendonitis acute Impingement syndrome of both shoulders acute Kyphosis (acquired) (postural) acute Left shoulder pain acute Right shoulder pain acute Irritable bowel syndrome with diarrhea acute Spondylosis of cervical carolina on without myelopathy or radiculopathy acute Chronic instability of knee, left knee acute Night sweats acute Left knee DJD acute Mechanical pain of left knee acute Mechanical pain of right knee acute Right knee DJD acute Tobacco abuse acute Biceps tendinitis of right shoulder acute Impingement syndrome of right shoulder acute Lumbar radiculopathy acute Night sweats acute Left knee DJD acute Sacroiliitis acute Left knee DJD acute Left knee DJD acute [facility] Work Phone: Evaluation note* Diagnosis Onset Date Resolution Status Biceps tendinitis of right shoulder acute Impingement syndrome of right shoulder acute Lumbar radiculopathy acute Night sweats acute Left knee DJD acute Lumbar stenosis noneactive Sacroiliitis acute Left knee DJD acute Left knee DJD acute Orthopedic aftercare noneact adeline Night sweats acute Chronic pain chronic Scoliosis of cervical region due to degenerative disease of spine in adult chronic Impingement syndrome of both shoulders acute Orthopedic aftercare acute 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 acute [facility] Work Phone: Evaluation note* Diagnosis Onset Date Resolution Status Night sweats acute Chronic pain chronic Scoliosis of cervical region due to degenerative disease of spine in adult chronic Impingement syndrome of both shoulders acute Orthopedic aftercare acute 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 acute Orthopedic aftercare acute Right knee DJD acute Weight loss chronic [facility] Work Phone: Evaluation note* Diagnosis Onset Date Resolution Status 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 acute Orthopedic aftercare acute Right knee DJD acute Weight loss chronic Depression acute DISH (diffuse idiopathic skeletal hyperostosis) chronic Weight loss chronic [facility] Work Phone: Evaluation note* Diagnosis Onset Date Resolution Status Right knee DJD acute Weight loss chronic Depression acute DISH (diffuse idiopathic skeletal hyperostosis) chronic Weight loss chronic Chronic instability of knee, left knee acute 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 acute Irritable bowel syndrome with diarrhea acute Smoking greater than 30 pack years acute Abdominal pain acute Enteritis acute Weight loss chronic [facility] Work Phone: Evaluation note* Diagnosis Onset Date Resolution Status Depression acute DISH (diffuse idiopathic skeletal hyperostosis) chronic Weight loss chronic Chronic instability of knee, left knee acute 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 acute Irritable bowel syndrome with diarrhea acute Smoking greater than 30 pack years acute Abdominal pain acute Enteritis acute Weight loss chronic [facility] Work Phone: History of Present illness Narrative* Mr. HARRISON presents with signs and symptoms consistent with Cervical Spondylosis without myelopathy,Cervical stiffness, as well as B/L shoulder pain and demonstrates impairments/limitations in cervical and shoulder AROM with Right shoulder more affected than Left shoulder, significant weakness in BUE's as well as significant issues with cervical and thoracic skeletal alignment and posture/body mechanics. Pt has significant forward head and rounded thoracic spine with increased kyphotic curve. Pt responded fair to manual techniques performed this date, but did have increased pain following dueto myofascial restriction. Pt reported good understanding of all edu and HEP with HO given. They would benefit from skilled Physical Therapy with combination of manual therapy techniques to decrease myofascial and joint restrictions, as well as progression of exercises for ROM, flexibility, strength, core stabilization, and postural retraining, and body mechanics education throughout POC to progre ss towards independence with ADL s/IADL s and return to PLOF. * Clinical Presentation: Evolving with changing characteristics. * Level of Complexity: low * Problem List: activity limitations, ADLs/IADLs/self care skills, decreased functional level, flexibility, motor function/control/tone, pain, participation restrictions, posture, range of motion/jointmobility, strength and transfers. [facility] Work Phone: History of Present illness NarrativePatient identified by name and date of . Patient demonstrated flexed fwd posturer/head provided cues to increase with upright posture throughout treatment. He responded well to STW/IASTM with thermostim probe with reduction of Sx after treatment. [facility] Work Phone: History of Present illness NarrativePatient identified by name and date of . Patient demonstrated slow movements due to reported Sx. Added B ER with resistance this date he demonstrated fatigue after w/o increased Sx. He demonstrated good tolerance to STW.[facility] Work Phone: History of Present illness NarrativePatient identified by name and date of . Patient presented with increased stiffness/muscle restrictions this date, added cupping this date he tolerated well. Held B ER due to increased soreness.[facility] Work Phone: History of Present illness NarrativeContinued to hold B ER due to increased soreness. Mod FWD head and rounded shoulder posture at restin sitting and standing. Fatigues quickly with UBE. Good technique with cerv retraction but has difficulty d/t lack of mobility. Applied cupping prior to application of the thermostim this date with patient this now being patient preference.[facility] Work Phone: History of Present illness NarrativeIncreased tightness along the R UT/scalenes and SCM. Patient has difficulty with active cervical rotation d/t limited mobility. Increased discomfort with iso PRE's.[facility] Work Phone: History of Present illness Narrative* Pt confirmed via and Full Name. * Pt reassessed this date by supervising PT with improvements noted in * . [facility] Work Phone: History of Present illness Narrative* Pt confirmed via and Full Name. * Pt reassessed this date by supervising PT with improvements noted in cervical AROM as well as mild improvement in MMT in BUE's compared to initial eval. Pt does still have significant functional deficits and lingering pain with worsening score on NDI outcome tool. Pt did respond well to addition ofTDN this date without any adverse reactions. Pt would benefit from F/U with MD to pursue further tests and measures and better treatment options after final visit with [employer]. [facility] Work Phone: History of Present illness NarrativeTightness with all active cervical movements this date. Completed cupping prior to thermostim todayd/t the tightness. R UT/SCM is significantly tighter than the L. Made sure patient had all he needsfor HEP d/t last visit being today. [facility] Work Phone: History of Present illness NarrativeThe pt presents with Medical Dx of B/L LE Sciatica, Low Back Pain and L LE Weakness. Pt presents with the following deficits: increased pain, decreased strength, ROM, flexibility and ability to lift,work and stand > 10 min. Pt would benefit from PT services in order to improve on these deficitsand to maximize strength and ability for functional activity/mobility. [facility] Work Phone: History of Present illness Narrative* Patient identified by name and * Demo's weakness in HS with increased weakness of R HS noted this date. Patient quick to fatigue during session. Patient demo's pain throughout session with no relief noted. Appropriately challenged this date with patient being able to complete reps being asked. Demo's weakness in bilat hip adductors with tremor noted. [facility] Work Phone: History of Present illness NarrativePatient has increased pain with bwd shoulder rolls. Visible motor control deficits with shoulder isometrics. Added PROM this date for improved mobility. Added finger ladder this date with pain starting at #27. [facility] Work Phone: History of Present illness NarrativePatient identified by name and date of . Patient demonstrated difficulty with relaxing with PROM and required max cues to decrease with tension. He was able to progress with reps with finger ladder. [facility] Work Phone: History of Present illness NarrativePatient has increased pain with bwd shoulder rolls. Visible motor control deficits with shoulder isometrics. Added PROM this date for improved mobility. Added finger ladder this date with pain starting at #27. [facility] Work Phone: History of Present illness NarrativePatient identified by name and date of . Patient was able to progress with ROM with use of SB on table. He required cues for hold time with exercises. He required cues throughout PROM to relax and decrease with active movement. [facility] Work Phone: History of Present illness NarrativePatient identified by name and date of . Patient demonstrated good understanding of exercises and fair tolerance. He required decreased cues for relaxation with PROM and STW. [facility] Work Phone: History of Present illness NarrativePatient identified by name and date of . Patient did not present with any visual abnormality with bicep this date during treatment. Spoke with PT, instructed to continue within patients limits. He was able complete exercises with report of mild increase in Sx after.[facility] Work Phone: History of Present illness NarrativePatient identified by name and date of . Patient was able to progress with strengthening this date with addition of t-band walkouts and delt/lat raises. He demonstrated increased ease with PROM with increased ROM in all planes and cues to relax.[facility] Work Phone: History of Present illness Narrative* Patient identified by name and date of . * Pt reassessed this date by supervising PT with improvements noted in Right shoulder AROM as well asPROM compared to eval. He demonstrates improved MMT in RUE but due to chronic spine issues as well as significant kyphosis in thoracic spine, pt has difficulty with proper motor control with posterior /inferior scap musculature. He responded well to time focused on STW this date due to presentation of increased myofascial restriction with improved tissue mobility after session. Pt reports good understanding for all edu provided this date and will have one final visit with [employer] to finalize hep dueto no time this date. He has maintained good attendance with visits and good compliance with HEP making good progress/meeting most if not all PT goals. * Response to treatment: no change in pain. [facility] Work Phone: History of Present illness NarrativePatient identified by name and date of . Patient demonstrated good tolerance to additional ROMand strengthening exercises. Reviewed HEP and provided additional handouts via email and text this date. He demonstrated good understanding. [facility] Work Phone: reason for referral (narrative)No reason for referral information availableWSt. Rita[facility] Work Phone: Reason for visit Narrative* Initial Evaluation . Spondylosis of Cervical Spine. * Referred by: Thad Vann [facility] [place] Work Phone: reason for visit Narrative* Initial Evaluation. * Referred by: Dr. Mcdowell * Primary Care Physician: Dr. 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[employer] Advance Directives and Living Will Documents on File Type Date Recorded 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[employer] Advance Directives and Living Will Advance Directive Response Recorded Date/ Time Living Will No 2021 11:46am Power of Substance Abuse Counselor No March 11:46am Advance Directive Response Recorded Date/ Time Living Will No February 08, 2022 2:05pm Power of Substance Abuse Counselor No February 08 2 2:05pm Advance Directive Response Recorded Date/ Time Living Will No February 08, 2022 1:05pm Power of Substance Abuse Counselor No February 08 2 1:05pm Advance Directive Response Recorded Date/ Time Living Will No February 08, 2022 2:05pm Do you have a Healthcare Power of Substance Abuse Counselor? 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 Procedures EMG: Grady Ayala MD [address] [place] [address] Geovanna Huggins MD [address] [place] [id number] History of Present Illness * Grady Ayala MD - 05/12/2020 2:48 PM EDT Dictation on: 05/12/2020 2:50 PM by: GRADY AYALA [[id number]] documented in this encounter* Geovanna Huggins MD - 06/03/2020 12:00 PM EST [facility] - Neurology [address], [place] [id number] Nerve Conduction & EMG Report Patient: Saran Harrison Sex: Male Date of : 1970 Visit Date: 06/03/2020 10:38 Age: 50 Years Examining MD: Geovanna Huggins MD Referred by: Dr. Ayala Temperature: 32.4 Current Height: 5 feet 8 inch Referred for: LUE numbness, cramps and pain for a year. + neck pain. No DM. Plan: The study is design to evaluate for radiculopathy, plexopathy, entrapment neuropathy, median or ulnar neuropathy. Indication, risk, side effects, and alternatives were explained. Patient agreedto proceed. Patient was instructed to clean the puncture site with soap and water and put some ice pack for bruising. EMG Summary: The left median motor nerve conduction study showed prolonged distal latency, normal amplitude and conduction velocity. The left median sensory nerve conduction study showed prolonged distal latency and normal amplitude. The left ulnar motor nerve conduction study showed normal latency and amplitude with reduced conduction velocity across the elbow to 46.8 m/s. The left ulnar sensory nerve conduction study was normal. The left radial, medial and lateral antebrachial cutaneous sensory nerve conduction study were normal. Needle EMG of the muscles tested showed no abnormal spontaneous activity. Normal motor unit action potentials and recruitment patterns were seen. Impression: This is an abnormal EMG. There is electrodiagnostic evidence of a left ulnar nerve entrapment across the elbow without axonal damage at this time. Incidentally, there is also electrodiagnostic evidence of a left median nerve entrapment at the wrist without axonal damage. There is NO electrodiagnostic evidence of left cervical radiculopathy, brachial plexopathy or ulnar neuropathy at this time. Geovanna Huggins MD Diplomate, ABPN, NBPAS Clinical Neurophysiology, Neurology, Vascular Neurology and Sleep Medicine [facility] [place] [phone] Nota bene: Portions of this chart was created using [employer] voice recognition software. Occasional wrong-word or sound-like substitutions may have occurred due to inherent limitations of the voice recognition software. Please read the chart carefully and recognize, using context, where the substitutions have occurred. Motor NCS Nerve / Sites Muscle Latency Amplitude Distance Velocity ms mV cm m/s L Median - APB Wrist APB 5.56 11.7 7 Elbow APB 9.63 11.6 21.5 52.9 L Ulnar - ADM Wrist ADM 3.50 10.3 6.5 B.Elbow ADM 7.02 11.6 23 65.3 A.Elbow ADM 9.58 10.2 12 46.8 Sensory NCS Nerve / Sites Peak Amp Amp.2-3 Distance Velocity d Lat.2 ms V V cm m/s ms L Radial - Snuff Forearm 2.29 26.1 15.0 10 58 L Median, Ulnar - Transcarpal comparison Median Palm 2.58 42.4 68.6 8 39 Ulnar Palm 2.17 20.7 16.1 8 49 0.42 L Lateral antebrachial cutaneous - Forearm Elbow 2.21 12.6 2.0 12 89 L Medial antebrachial cutaneous - Forearm Elbow 1.98 18.1 19.1 12 75 EMG Summary Table Spontaneous Activity Amplitude Duration Recruitment Polyphasia Comment Muscle Ins Act Fib PSW Fasc - - - - - L. Cervical paraspinals Normal 0 0 0 Normal Normal Normal Normal Normal L. Deltoid Normal 0 0 0 Normal Normal Normal Normal Normal L. Triceps brachii Normal 0 0 0 Normal Normal Normal Normal Normal L. Biceps brachii Normal 0 0 0 Normal Normal Normal Normal Normal L. Pronator teres Normal 0 0 0 Normal Normal Normal Normal Normal L. Extensor digitorum communis Normal 0 0 0 Normal Normal Normal Normal Normal L. First dorsal interosseous Normal 0 0 0 Normal Normal Normal Normal Normal L. Abductor pollicis brevis Normal 0 0 0 Normal Normal Normal Normal Normal documented in this encounter* Grady Ayala MD - 06/16/2020 4:45 PM EST Dictation on: 06/16/2020 4:48 PM by: GRADY AYALA [[id number]] documented in this encounter* Grady Ayala MD - 07/14/2020 5:18 PM EST Dictation on: 07/14/2020 5:19 PM by: GRADY AYALA [[id number]] documented in this encounter* Grady Ayala MD - 09/27/2020 11:33 AM EDT Saran is seen for followup of his left carpal tunnel release and tardy ulnar nerve palsy. He is doing real well. He has a little pain, but full motion, good strength. Wounds are well healed. He is neurovascularly intact. He still gets some numbness in the little and ring fingers on that left side.I told him that is not unexpected at this point in time. He would like to return to work. I think he has enough strength and healing, he can return to work. I will see him p.r.n. 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, left Diagnosis Carpal tunnel syndrome of left wrist- Primary Tardy ulnar nerve palsy, left Mass of finger of left hand Localized superficial swelling, mass, or lump Diagnosis Carpal tunnel syndrome of left wrist- Primary Tardy ulnar nerve palsy, left Mass of finger of left hand Localized superficial swelling, mass, or lump Diagnosis Carpal tunnel syndrome of left wrist- Primary Tardy ulnar nerve palsy, left Chief Complaint and Reason for Visit Chief Complaint BILAT SHOULDERS xray 6 wk FU INT LABS CHECK UP BILAT SHOULDERS FU CERVICAL SPINE CHECK UP, KNEE PAIN BILAT KNEES xray RIGHT/ LEFT SHOULDER PAIN BL SHOULDER Reason for Visit Bilateral biceps ten donitis Impingement syndrome of both shoulders Kyphosis (acquired) (postural) Irritable bowel syndrome with diarrhea Neutrophilic leukocytosis Bilateral biceps tendonitis Impingement syndrome of both shoulders Kyphosis (acquired) (postural) Left shoulder pain Right shoulder pain Irritable bowel syndrome with diarrhea Spondylosis of cervical region without myelopathy or radiculopathy Chronic instability of knee, left knee Night sweats Left knee DJD Mechanical pain of left knee Mechanical pain of right knee Right knee DJD Tobacco abuse Biceps tendinitis of right shoulder Impingement syndrome of right shoulder Chief Complaint 6 wk FU INT LABS CHECK UP BILAT SHOULDERS FU CERVICAL SPINE CHECK UP, KNEE PAIN BILAT KNEES xray RIGHT/ LEFT SHOULDER PAIN BL SHOULDER LEFT/RIGHT KNEE PAIN BL KNEE Reason for Visit Irritable bowel synd manju with diarrhea Neutrophilic leukocytosis Bilateral biceps tendonitis Impingement syndrome of both shoulders Kyphosis (acquired) (postural) Left shoulder pain Right shoulder pain Irritable bowel syndrome with diarrhea Spondylosis of cervical region without myelopathy or radiculopathy Chronic instability of knee, left knee Night sweats Left knee DJD Mechanical pain of left knee Mechanical pain of right knee Right knee DJD Tobacco abuse Biceps tendinitis of right shoulder Impingement syndrome of right shoulder Lumbar radiculopathy Chief Complaint 6 wk FU INT LABS CHECK UP BILAT SHOULDERS FU CERVICAL SPINE CHECK UP, KNEE PAIN BILAT KNEES xray RIGHT/ LEFT SHOULDER PAIN BL SHOULDER LEFT/RIGHT KNEE PAIN BL KNEE LUMBAR PAIN Reason for Visit Irritable bowel synd manju with diarrhea Neutrophilic leukocytosis Bilateral biceps tendonitis Impingement syndrome of both shoulders Kyphosis (acquired) (postural) Left shoulder pain Right shoulder pain Irritable bowel syndrome with diarrhea Spondylosis of cervical region without myelopathy or radiculopathy Chronic instability of knee, left knee Night sweats Left knee DJD Mechanical pain of left knee Mechanical pain of right knee Right knee DJD Tobacco abuse Biceps tendinitis of right shoulder Impingement syndrome of right shoulder Lumbar radiculopathy Chief Complaint 6 wk FU INT LABS CHECK UP BILAT SHOULDERS FU CERVICAL SPINE CHECK UP, KNEE PAIN BILAT KNEES xray RIGHT/ LEFT SHOULDER PAIN BL SHOULDER LEFT/RIGHT KNEE PAIN BL KNEE LUMBAR PAIN 6 M FU Reason for Visit Irritable bowel synd manju with diarrhea Neutrophilic leukocytosis Bilateral biceps tendonitis Impingement syndrome of both shoulders Kyphosis (acquired) (postural) Left shoulder pain Right shoulder pain Irritable bowel syndrome with diarrhea Spondylosis of cervical region without myelopathy or radiculopathy Chronic instability of knee, left knee Night sweats Left knee DJD Mechanical pain of left knee Mechanical pain of right knee Right knee DJD Tobacco abuse Biceps tendinitis of right shoulder Impingement syndrome of right shoulder Lumbar radiculopathy Night sweats Chief Complaint CHECK UP BILAT SHOULDERS FU CERVICAL SPINE CHECK UP, KNEE PAIN BILAT KNEES xray RIGHT/ LEFT SHOULDER PAIN BL SHOULDER LEFT/RIGHT KNEE PAIN BL KNEE LUMBAR PAIN 6 M FU BILAT LOWER EXT PVD 1st Euflexxa injection L knee , review lumbar MRI Reason for Visit Neutrophilic leukocy tosis Bilateral biceps tendonitis Impingement syndrome of both shoulders Kyphosis (acquired) (postural) Left shoulder pain Right shoulder pain Irritable bowel syndrome with diarrhea Spondylosis of cervical region without myelopathy or radiculopathy Chronic instability of knee, left knee Night sweats Left knee DJD Mechanical pain of left knee Mechanical pain of right knee Right knee DJD Tobacco abuse Biceps tendinitis of right shoulder Impingement syndrome of right shoulder Lumbar radiculopathy Night sweats Left knee DJD Chief Complaint BILAT SHOULDERS FU CERVICAL SPINE CHECK UP, KNEE PAIN BILAT KNEES xray RIGHT/ LEFT SHOULDER PAIN BL SHOULDER LEFT/RIGHT KNEE PAIN BL KNEE LUMBAR PAIN 6 M FU BILAT LOWER EXT PVD 1st Euflexxa injection L knee , review lumbar MRI LUMBAR SPINE xray Follow up 3rd L knee Euflexxa injection RT SHOULDER ARTHROSCOPY SUBACROMIAL DECOMPRE.. RT SHOULDER ARTHROSCOPY SUBACROMIAL DECOMPRE.. Reason for Visit Bilateral biceps ten donitis Impingement syndrome of both shoulders Kyphosis (acquired) (postural) Left shoulder pain Right shoulder pain Irritable bowel syndrome with diarrhea Spondylosis of cervical region without myelopathy or radiculopathy Chronic instability of knee, left knee Night sweats Left knee DJD Mechanical pain of left knee Mechanical pain of right knee Right knee DJD Tobacco abuse Biceps tendinitis of right shoulder Impingement syndrome of right shoulder Lumbar radiculopathy Night sweats Left knee DJD Sacroiliitis Left knee DJD Left knee DJD Chief Complaint BL SHOULDER LEFT/RIGHT KNEE PAIN BL KNEE LUMBAR PAIN 6 M FU BILAT LOWER EXT PVD 1st Euflexxa injection L knee , review lumbar MRI LUMBAR SPINE xray Follow up RT SHOULDER ARTHROSCOPY SUBACROMIAL DECOMPRE.. 3rd L knee Euflexxa injection RT SHOULDER ARTHROSCOPY SUBACROMIAL DECOMPRE.. RT SHOULDER ARTHROSCOPY SUBACROMIAL DECOMPRE.. right shoulder NIGHT SWEATS, ANXIETY RIGHT SHOULDER Cervical Spine xray right knee RT KNEE ARTHROSCOPY MEDIAL/LATERAL MENISCUS REP... RT KNEE ARTHROSCOPY MEDIAL/LATERAL MENISCUS REP... 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 RT KNEE ARTHROSCOPY MEDIAL/LATERAL MENISCUS REP... right knee RIGHT KNEE LOSING WEIGHT E ORDER Reason for Visit Night sweats Chronic pain Scoliosis of cervical region due to degenerative disease of spine in adult Impingement syndrome of both shoulders Orthopedic aftercare 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 Orthopedic aftercare Right knee DJD Weight loss Chief Complaint Cervical Spine xray right knee RT KNEE ARTHROSCOPY MEDIAL/LATERAL MENISCUS REP... RT KNEE ARTHROSCOPY MEDIAL/LATERAL MENISCUS REP... right knee RIGHT KNEE LOSING WEIGHT E ORDER FOLLOW UP ABOUT BACK PAIN CAP ENDO E ORDERS Reason for Visit Diffuse idiopathic s keletal hyperostosis of cervicothoracic spine Orthopedic aftercare Right knee DJD Weight loss Depression DISH (diffuse idiopathic skeletal hyperostosis) Weight loss Chief Complaint RIGHT KNEE LOSING WEIGHT E ORDER FOLLOW UP ABOUT BACK PAIN CAP ENDO E ORDERS 2 m fu 3 M FU EORDERS RUQ PAIN E ORDER ENTEROGRAPHY CROHNS Reason for Visit Right knee DJD Weight loss Depression DISH (diffuse idiopathic skeletal hyperostosis) Weight loss Chronic instability of knee, left knee 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 Irritable bowel syndrome with diarrhea Smoking greater than 30 pack years Abdominal pain Enteritis Weight loss Chief Complaint FOLLOW UP ABOUT BACK PAIN CAP ENDO E ORDERS 2 m fu 3 M FU EORDERS RUQ PAIN E ORDER ENTEROGRAPHY CROHNS Reason for Visit Depression DISH (diffuse idiopathic skeletal hyperostosis) Weight loss Chronic instability of knee, left knee 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 Irritable bowel syndrome with diarrhea Smoking greater than 30 pack years Abdominal pain Enteritis Weight loss Chief Complaint Admit Date 3 M FU July 01, 2024 1:14pm 3 M FU September 30, 2024 1:3 0pm INT XRAY ORDER October 06, 2024 10: 32am Reason for Visit Admit Date Crohn's disease July 01, 2024 1:14pm 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 July 01, 2024 1:14pm Lumbar radiculopathy July 01, 2024 1:14pm Other acute postprocedural pain July 01, 2024 1:14pm Tobacco abuse July 01, 2024 1:14pm 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 September 30, 2024 1:30pm Hip pain, right September 30, 2024 1:3 0pm Chief Complaint Admit Date 3 M FU September 30, 2024 1:3 0pm INT XRAY ORDER October 06, 2024 10: 32am 3 M FU December 30, 2024 12:4 4pm Reason for Visit Admit Date 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 September 30, 2024 1:30pm Hip pain, right September 30, 2024 1:3 0pm Cervical pain December 30, 2024 12:4 4pm Chronic insomnia December 30, 2024 12:4 4pm Depression December 30, 2024 12:4 4pm DISH (diffuse idiopathic skeletal hypero stosis) December 30, 2024 12:44pm Chief Complaint Admit Date 3 M FU December 30, 2024 12:4 4pm 3 M FU March 31, 2025 1:11pm Reason for Visit Admit Date Cervical pain December 30, 2024 12:4 4pm Chronic insomnia December 30, 2024 12:4 4pm Depression December 30, 2024 12:4 4pm DISH (diffuse idiopathic skeletal hypero stosis) December 30, 2024 12:44pm 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 March 31, 2025 1:11pm Purpura March 31, 2025 1:11pm Weight loss March 31, 2025 1:11pm Additional Source Comments (unrecognized sect ion and content) No Status Records FoundNo Status Records FoundNo Status Records FoundNo Status Records FoundNo Status Records FoundNo Status Records FoundNo Status Records FoundNo Status Records FoundNo Status Records Found INFORMATION SOURCE (unrecogn ized section and content) DATE CREATED AUTHOR 09/17/2018 [facility] DATE CREATED AUTHOR AUTHOR'S ORGANIZ ATION 05/24/2019 [facility] DATE CREATED AUTHOR AUTHOR'S ORGANIZ ATION 07/28/2019 [facility] DATE CREATED AUTHOR AUTHOR'S ORGANIZ ATION 04/07/2020 [facility] DATE CREATED AUTHOR AUTHOR'S ORGANIZ ATION 07/23/2020 [facility] DATE CREATED AUTHOR AUTHOR'S ORGANIZ ATION 09/27/2020 [facility] DATE CREATED AUTHOR AUTHOR'S ORGANIZ ATION 05/08/2021 [facility] DATE CREATED AUTHOR AUTHOR'S ORGANIZ ATION 03/17/2022 [facility] DATE CREATED AUTHOR AUTHOR'S ORGANIZ ATION 01/02/2025 [facility] Reason for Visit (unrecogniz ed section and content) Reason Comments Other Status Reason Specialty Diagnoses / Procedures Referred By Contact Referred To Contact Closed Sports Medicine Diagnoses Left hand pain Left elbow pain Mike Plummer MD [address] [place] [address] Grady Ayala MD [address] [place] [address] Status Reason Specialty Diagnoses / Procedures Referred By Contact Referred To Contact Pending Review Neurology Diagnoses Tardy ulnar nerve palsy, left Carpal tunnel syndrome of left wrist Procedures EMG: Grady Ayala MD [address] [place] [address] Geovanna Huggins MD [address] [address] Reason Comments Follow-up Reason Comments Follow-up Suture / Staple Removal Care Teams (unrecognized sec tion and content) Team Status: Active Member Role Status Dates Dr. Henry Blanton , DO Primary Care Provider Active Team Status: Inactive Member Role Status Dates Dr. Henry Blanton , DO Primary Care Pr ovider, Attending Provider, Referring Provider Active Team Status: Inactive Member Role Status Dates Dr. Henry Blanton , DO Primary Care Provider, Referr ing Provider Active Dr. Glynn Young , DO Attending Provider Active Team Status: Inactive Member Role Status Dates Dr. Henry Blanton , DO Primary Care Provider, Referr ing Provider Active Dr. Cody Mills , DO Attending Provider Active Team Status: Inactive Member Role Status Dates Dr. Henry Blanton , DO Primary Care Provider, Referr ing Provider Active Carole Ventura MEDICAL UNDERWRITER, MEDICAL UNDERWRITER-C Attending Provider Active Team Status: Inactive Member Role Status Dates Dr. Henry Blanton , Primary Care Provider Active Dr. Glynn Young , DO Attending Provider Active Team Status: Inactive Member Role Status Dates Dr. Henry Blanton , DO Primary Care Provider Active Dr. Glynn Young , DO Attending Provider, Referring Provider Active Team Status: Inactive Member Role Status Dates Dr. Henry Blanton , DO Primary Care Provider Active Carole Ventura MEDICAL UNDERWRITER, MEDICAL UNDERWRITER-C Attending Provider, Referrin g Provider Active Team Status: Inactive Member Role Status Dates Dr. Henry Blanton DO Primary Care Provider Active Carole Ventura MEDICAL UNDERWRITER, MEDICAL UNDERWRITER-C Attending Provider Active Team Status: Active Member Role Status Dates Dr. Henry Blanton DO Primary Care Provider Active Carole Ventura MEDICAL UNDERWRITER, MEDICAL UNDERWRITER-C Attending Provider, Referrin g Provider Active Team Status: Inactive Member Role Status Dates Dr. Henry Blanton DO Primary Care Provider Active Start: July 01, 2024 End: July 01, 2024 Dr. Henry R Brown , DO Attending Provider Active Start: July 01, 2024 End: July 01, 2024 Dr. Henry Blanton DO Referring Provider Active Start: July 01, 2024 End: July 01, 2024 Team Status: Inactive Member Role Status Dates Dr. Henry Blanton DO Primary Care Provider Active Start: September 30, 2024 End: September 30, 2024 Dr. Henry Blanton DO Attending Provider Active Start: September 30, 2024 End: September 30, 2024 Dr. Henry Blanton DO Referring Provider Active Start: September 30, 2024 End: September 30, 2024 Team Status: Inactive Member Role Status Dates Dr. Henry Blanton DO Primary Care Provider Active Start: October 06, 2024 End: October 06, 2024 Dr. Henry Blanton DO Attending Provider Active Start: October 06, 2024 End: October 06, 2024 Dr. Henry Blanton DO Referring Provider Active Start: October 06, 2024 End: October 06, 2024 Team Status: Inactive Member Role Status Dates Dr. Henry Blanton DO Primary Care Provider Active Start: December 30, 2024 End: December 30, 2024 Dr. Henry Blanton DO Attending Provider Active Start: December 30, 2024 End: December 30, 2024 Dr. Henry Blanton DO Referring Provider Active Start: December 30, 2024 End: December 30, 2024 Team Status: Active Member Role/Relationship Status Dates Dr. Henry Blanton DO Primary Care Provider Active Team Status: Inactive Member Role/Relationship Status Dates Dr. Henry Blanton DO Primary Care Provider Active Start: December 30, 2024 End: December 30, 2024 Dr. Henry Blanton DO Attending Provider Active Start: December 30, 2024 End: December 30, 2024 Dr. Henry Blanton DO Referring Provider Active Start: December 30, 2024 End: December 30, 2024 Team Status: Inactive Member Role/Relationship Status Dates Dr. Henry Blanton DO Primary Care Provider Active Start: March 31, 2025 End: March 31, 2025 Dr. Henry Blanton DO Attending Provider Active Start: March 31, 2025 End: March 31, 2025 Dr. Henry Blanton DO Referring Provider Active Start: March 31, 2025 End: March 31, 2025 Team Status: Active Member Role/Relationship Status Dates Dr. Henry Blanton DO Primary Care Provider Active Start: March 31, 2025 Dr. Henry Blanton DO Attending Provider Active Start: March 31, 2025 Dr. Henry Blanton DO Referring Provider Active Start: March 31, 2025 FOR RECORDS PERTAINING TO PATIENTS WHO ARE OR HAVE BEEN ENROLLED IN A CHEMICAL DEPENDENCY/SUBSTANCEABUSE PROGRAM, SOME INFORMATION MAY BE OMITTED. This clinical summary was aggregated from multiple sources. Caution should be exercised in using it in the provision of clinical care. This summary normalizes information from multiple sources, and as a consequence, information in this document may materially change the coding, format and clinical context of patient data. In addition, data may be omitted in some cases. CLINICAL DECISIONS SHOULD BE BASED ON THE PRIMARY CLINICAL RECORDS. [facility], [facility]. provides no warranty or guarantee of the accuracy or completeness of information in this document.
== END | disposition home or self-care (01) ==
LOC: BIMLAB 13:48
PROVIDERS: PCP Family Medicine; Referring Provider Family Medicine; Visit Provider Family Medicine
DX: D69.2 Other nonthrombocytopenic purpura (principal); R63.4 Abnormal weight loss
CPT/HCPCS: 36415; 80053; 85025